=== PATIENT | female | born 1930 | race Caucasian/White ===

== ENCOUNTER 2016-08-16 13:39 | Observation (INO) | payer OTHER ==
[2016-08-16] VITALS (9 sets, daily range): BP systolic 164–186; BP diastolic 73–96; PULSE 65–102; RESP 16–20; TEMP 97.9–98; O2SAT 95–97
[~2016-08-16] VITALS: Ht 160 cm; Wt 82.3 kg
[~2016-08-16 13:39] MED LIST: ASPI1TAB69 PO; DILT-60 PO; LEVO50TA53 PO; LEXA10TA PO; LISI-519 PO; METH500T3 PO; PERC5TAB12 PO; PLAV75TA29 PO; PRAV20TA2 PO; ROPI.5 PO
--- NOTE | 2016-08-16 14:43 | PD ---
HPI Chief Complaint: Chest Pain Time Seen by Provider: 13:47 Travel History International Travel<30 days: No (3) Contact w/Intl Traveler<30days: No Traveled to known affect area: No History of Present Illness HPI Patient is a 86-year-old female who presents to emergency room with complaints of chest pain. Patient reports that she has been having intermittent chest pain feel a chest of the past 2 weeks. Patient reports that chest pain can occur any time. Reports that when she has the chest pain, it only last a few minutes at a time and is sharp and stabbing in nature. Reports that sometimes, "it hurts when i take a deep breath." Pt reports no trauma to chest. Reports no chest pain currently while in the ER [facility] Past Medical History Hx Anticoagulant Therapy: Yes (PLAVIX) Anemia: Yes Arthritis: Yes Blood Disorders: No Anxiety: No Depression: No Heart Rhythm Problems: No Cancer: Yes (LEFT BREAST) Cardiovascular Problems: Yes (VEIN STRIPPING OF LEGS - BILATERALLY) High Cholesterol: No Chemotherapy: No Chest Pain: No Congestive Heart Failure: No COPD: Yes (MILD) Cerebrovascular Accident: Yes (2013) Diabetes: No Diminished Hearing: No Endocrine: Yes Gastrointestinal Disorders: Yes GERD: Yes Genitourinary: No Hypertension: Yes Immune Disorder: No Implanted Vascular Access Dvce: Yes Musculoskeletal: Yes Neurologic: Yes (NEUROPATHY) Psychiatric: No Reproductive: Yes (ONE PRODUCED TWINS) Respiratory: Yes (PT STATES "MILD COPD") Radiation Therapy: Yes Shingles: Yes Thyroid Disease: Yes Tetanus Vaccination: > 5 Years Influenza Vaccination: Yes Menopausal: Yes : 6 Para: 5 Miscarriage: 2 Past Surgical History Abdominal Surgery: Yes (PARTIAL COLECTOMY) AICD: No Arteriovenous Shunt: No Body Medical Devices: METAL PLATES IN THE NECK PER PT AND DAUGHTER/ discectomy Cardiac Surgery: No Ear Surgery: No Endocrine Surgery: No Eye Surgery: Yes (CAITLIN. CATARACT EXTRACT) Genitourinary Surgery: No Gynecologic Surgery: No Insulin Pump: No Joint Replacement: No Mastectomy: Yes (LEFT) Neurologic Surgery: No Oral Surgery: Yes (TEETH EXTRACTION) Pacemaker: No Thoracic Surgery: No Tonsillectomy: Yes Other Surgery: Yes (LT MASTECTOMY WITH NODE REMOVAL 1985- RT LEG VEIN STRIPPING ) Social History Alcohol Use: Yes (rarely at mimi, wine coolers) Tobacco Use: No Substance Use: No Allergies-Medications (Allergen,Severity, Reaction): Coded Allergies: *MDRO Multi-Drug Resistant Organism (Verified Allergy, Unknown, 08/16/16) MRSA Reported Meds & Prescriptions Reported Meds & Active Scripts Active Reported Vitamin C (Ascorbic Acid) 500 Mg Tab 500 Mg PO DAILY Maxzide-25 (Triamterene-Hydrochlorothiazide) 37.5-25 Mg Tab 1 Tab PO DAILY Colace (Docusate Sodium) 100 Mg Cap 100 Mg PO BID Glucosamine Chondroitin & [phone] mg (Jnlmacvcwcn-Fjnsvvlcrad-Jf Cho) 1 Tab Tab 1 Tab PO DAILY Calcium 600+D (Calcium Carbonate-Vitamin D) 600-400 Mg-Unit Tab 1 Tab PO BID Magnesium Oxide 400 Mg Tab 400 Mg PO DAILY [place]-3 Fish Oil 1200 mg ([place]-3 Fatty Acids) 1 Cap Cap 1 Cap PO DAILY Escitalopram (Escitalopram Oxalate) 5 Mg Tab 5 Mg PO DAILY Ropinirole 0.25 Mg Tab 0.25 Mg PO HS Methocarbamol 500 Mg Tab 500 Mg PO HS Lisinopril 5 Mg Tab 5 Mg PO DAILY Levoxyl (Levothyroxine Sodium) 50 Mcg Tab 50 Mcg PO DAILY Diltiazem CD 24 HR 120 Mg Caper 120 Mg PO DAILY Plavix (Clopidogrel Bisulfate) 75 Mg Tab 75 Mg PO DAILY Aspirin 81 Mg Tabdr 81 Mg PO DAILY Review of Systems General / Constitutional: No: Fever Eyes: No: Visual changes HENT: No: Headaches Cardiovascular: Positive: Chest Pain or Discomfort, Palpitations, No: Irregular Rhythm Respiratory: Positive: Shortness of Breath Gastrointestinal: No: Abdominal Pain Genitourinary: No: Dysuria Musculoskeletal: No: Pain Skin: No Rash Neurologic: No: Weakness Psychiatric: No: Depression Endocrine: No: Polydipsia Hematologic/Lymphatic: No: Easy Bruising Physical Exam Narrative GENERAL: No acute distress, nontoxic SKIN: Warm and dry. HEAD: Atraumatic. Normocephalic. EYES: Pupils equal and round. No scleral icterus. No injection or drainage. ENT: No nasal bleeding or discharge. Mucous membranes pink and moist. NECK: Trachea midline. No JVD. CARDIOVASCULAR: Regular rate and rhythm. No murmur appreciated. RESPIRATORY: No accessory muscle use. Clear to auscultation. Breath sounds equal bilaterally. GASTROINTESTINAL: Abdomen soft, non-tender, nondistended. Hepatic and splenic margins not palpable. MUSCULOSKELETAL: No obvious deformities. No clubbing. No cyanosis. No edema. NEUROLOGICAL: Awake and alert. No obvious cranial nerve deficits. Motor grossly within normal limits. Normal speech. PSYCHIATRIC: Appropriate mood and affect; insight and judgment normal. Data Data Last Documented VS Vital Signs Date Time Temp Pulse Resp B/P Pulse Ox O2 Delivery O2 Flow Rate FiO2 08/16/16 15:40 80 16 177/95 96 Room Air 08/16/16 13:39 97.9 Orders Electrocardiogram (08/16/16 ) Hydralazine Inj (Apresoline Inj) (08/16/16 14:45) Complete Blood Count With Diff (08/16/16 14:36) Basic Metabolic Panel (Bmp) (08/16/16 14:36) Ckmb (Isoenzyme) Profile (08/16/16 14:36) Troponin I (08/16/16 14:36) Chest, Single Ap (08/16/16 14:36) Iv Access Insert/Monitor (08/16/16 14:36) Ecg Monitoring (08/16/16 14:36) Ct Pulmonary Angiogram (08/16/16 14:46) Iohexol 350 Inj (Omnipaque 350 Inj) (08/16/16 16:27) Admit Order (Ed Use Only) (08/16/16 16:37) Labs Laboratory Tests Test 08/16/16 14:20 White Blood Count 9.5 TH/MM3 Red Blood Count 4.26 MIL/MM3 Hemoglobin 13.6 GM/DL Hematocrit 40.5 % Mean Corpuscular Volume 95.0 FL Mean Corpuscular Hemoglobin 32.0 PG Mean Corpuscular Hemoglobin 33.6 % Concent Red Cell Distribution Width 14.4 % Platelet Count 345 TH/MM3 Mean Platelet Volume 8.5 FL Neutrophils (%) (Auto) 61.0 % Lymphocytes (%) (Auto) 22.7 % Monocytes (%) (Auto) 12.2 % Eosinophils (%) (Auto) 3.5 % Basophils (%) (Auto) 0.6 % Neutrophils # (Auto) 5.8 TH/MM3 Lymphocytes # (Auto) 2.2 TH/MM3 Monocytes # (Auto) 1.2 TH/MM3 Eosinophils # (Auto) 0.3 TH/MM3 Basophils # (Auto) 0.1 TH/MM3 CBC Comment DIFF FINAL Differential Comment Sodium Level 140 MEQ/L Potassium Level 4.2 MEQ/L Chloride Level 106 MEQ/L Carbon Dioxide Level 25.8 MEQ/L Anion Gap 8 MEQ/L Blood Urea Nitrogen 18 MG/DL Creatinine 0.67 MG/DL Estimat Glomerular Filtration 83 ML/MIN Rate Random Glucose 79 MG/DL Calcium Level 9.2 MG/DL Total Creatine Kinase 42 U/L Troponin I LESS THAN 0.02 NG/ML MDM Medical Decision Making Medical Screen Exam Complete: Yes Emergency Medical Condition: Yes Interpretation(s) EKG at 1409: Normal sinus rhythm at 63 beats minute, QT/QTc 425/432, no acute st or t wave changes Vital Signs Date Time Temp Pulse Resp B/P Pulse Ox O2 Delivery O2 Flow Rate FiO2 08/16/16 13:40 70 16 96 Room Air 08/16/16 13:40 65 16 186/79 96 Room Air 08/16/16 13:39 97.9 68 16 186/79 96 Differential Diagnosis ACS, PE, DVT, electrolyte abnormality, arrhythmia Narrative Course 86-year-old female with history of atrial fibrillation and hypertension, presents to emergency room with complaints of chest pain. Patient has been having intermittent chest pain for the past 2 weeks, reports his symptoms are sharp stabbing nature and lasts only a few minutes at a time. Patient currently with no chest pain at this time. EKG reviewed, patient placed on threat monitoring analyst as well continuous pulse oximeter CBC, BMP and Cardiac enzymes as well as x-ray chest ordered for evaluation symptoms. We'll monitor patient symptomatically Patient with elevated blood pressure, she has not taken her blood pressure medications yet, patient thinks that she does take diltiazem daily - call made to assisted living for full medication list Reviewed CT report with patient, a copy of patient's CT report was given to her as she will need to follow-up with her primary care doctor as outpatient for possible metastatic disease. Diagnosis Primary Impression: Chest pain Additional Impression: Lung mass Kimberly Hanson DO Aug 16, 2016 14:43
[2016-08-16] MEDS ORDERED: hydrALAZINE HCL 20 MG/ML VIAL IV PUSH ONE (14:45)
[2016-08-16] MEDS ORDERED: VITA500T PO (14:53)
[2016-08-16] MEDS ORDERED: CALCTAB38 PO (14:53)
[2016-08-16] MEDS ORDERED: ESCI5TAB PO (14:53)
[2016-08-16] MEDS ORDERED: ROPI0.25 PO (14:53)
[2016-08-16] MEDS ORDERED: MAGN400T2 PO (14:53)
[2016-08-16] MEDS ORDERED: [UNRECOGNIZED DRUG - CODE] PO (14:53)
[2016-08-16] MEDS ORDERED: GLUCTAB32 PO (14:53)
[2016-08-16] MEDS ORDERED: COLA100C3 PO (14:53)
[2016-08-16] MEDS ORDERED: MAXZTAB PO (14:53)
--- NOTE | 2016-08-16 15:02 | RADRPT ---
EXAM DATE/TIME: 08/16/2016 14:43 [facility] COMPARISON: No previous studies available for comparison. INDICATIONS : Chest pain. MEDICAL HISTORY : None. SURGICAL HISTORY : Mastectomy, left. ENCOUNTER: Initial ACUITY: 2 weeks PAIN SCORE: 8/10 LOCATION: Left chest FINDINGS: Aortic calcification and cardiomegaly. High riding humeral head on the right. Clear lungs. CONCLUSION: No acute disease. Chris Weinberg MD on August 16, 2016 at 15:00 Board Certified Radiologist. This report was verified electronically.
[2016-08-16 15:31] LABS: AUTOMATED NEUTROPHIL # 5.8 TH/MM3 (1.8-7.7); BASOPHIL # 0.1 TH/MM3 (0-0.2); BASOPHIL % 0.6 % (0.0-2.0); EOSINOPHIL # 0.3 TH/MM3 (0-0.4); EOSINOPHIL % 3.5 % (0.0-4.0); HEMATOCRIT 40.5 % (35.0-46.0); HEMO FLAGS DIFF FINAL; LYMPH % 22.7 % (9.0-44.0); LYMPHOCYTE # 2.2 TH/MM3 (1.0-4.8); MEAN CORPUSCULAR HGB CONC 33.6 % (32.0-36.0); MONO % 12.2 % (0.0-8.0); PLATELET COUNT 345 TH/MM3 (150-450); RED BLOOD COUNT 4.26 MIL/MM3 (4.00-5.30); RED CELL DISTRIBUTION WIDTH 14.4 % (11.6-17.2); WHITE BLOOD COUNT 9.5 TH/MM3 (4.0-11.0)
[2016-08-16 15:47] LABS: ANION GAP 8 MEQ/L (5-15); BICARBONATE 25.8 MEQ/L (21.0-32.0); BLOOD UREA NITROGEN 18 MG/DL (7-18); CHLORIDE 106 MEQ/L (98-107); GLOMERULAR FILTRATION RATE 83 ML/MIN (>89); POTASSIUM 4.2 MEQ/L (3.5-5.1); SODIUM (NA) 140 MEQ/L (136-145)
[2016-08-16 15:56] LABS: CREATINE KINASE 42 U/L (26-192)
[2016-08-16] MEDS ORDERED: IOHEXOL 350 MG/ML 50 ML BTL (for RAD DIAG) IV ONE (16:27)
[2016-08-16] MEDS: NITROGLYCERIN 0.4 MG SL 25 TABS/BTL SL SCH ×3 (16:46→16:55)
--- NOTE | 2016-08-16 16:53 | RADRPT ---
EXAM DATE/TIME: 08/16/2016 16:20 [facility] COMPARISON: MRI BRAIN W/O CONTRAST, July 14, 2013, 12:35. INDICATIONS : Left sided chest pain for two weeks. IV CONTRAST: 75 cc Omnipaque 350 (iohexol) IV RADIATION DOSE: 21.02 CTDIvol (mGy) MEDICAL HISTORY : Carcinoma, breast. Stroke SURGICAL HISTORY : Mastectomy, left. ENCOUNTER: Initial ACUITY: 1 day PAIN SCALE: 0/10 LOCATION: Left chest TECHNIQUE: Volumetric scanning of the chest was performed using a pulmonary embolism protocol MIP images were re constructed. Using automated exposure control and adjustment of the mA and/or kV according to patien t size, radiation dose was kept as low as reasonably achievable to obtain optimal diagnostic quality images. FINDINGS: There is no pulmonary embolus. Trace atelectasis of both lung bases. Posteriorly in the right lower lobe is a 17 mm cavity with 1-2 mm, slightly irregular wall. No fluid levels are demonstrated. There is an 8 x 10 mm nodule with angu lar margins of the right upper lobe. No pleural effusion. No pneumothorax. Right and left-sided coronary artery calcification noted. No lymphadenopathy. Small hiatal hernia not ed. Scoliosis and degenerative changes are seen of the spine. CONCLUSION: 1. No pulmonary embolus. 2. 17 mm age and etiology indeterminate cavity posteriorly of the right lower lobe. The wall is relat ively thin and malignancy is doubted but not excludable. Comparison to any prior chest CTs would be h elpful. If there are no prior CTs of the chest, non-emergent outpatient PET CT suggested. There is an 8 x 10 mm indeterminate but most likely benign right upper lobe nodule seen as well. 3. Coronary artery calcification. 4. Small hiatal hernia. Manuel De León MD on August 16, 2016 at 16:45 Board Certified Radiologist. This report was verified electronically.
[2016-08-16] MEDS ORDERED: RESP: ALBUTEROL 2.5 MG/IPRATROPIUM 0.5 MG NEB (PRN) INH (17:30)
[2016-08-16] MEDS ORDERED: ACETAMINOPHEN/HYDROcodone 325 MG/5 MG TAB PO PRN (17:30)
[2016-08-16] MEDS ORDERED: ONDANSETRON HCL 4 MG/2 ML VIAL IV PRN (17:30)
[2016-08-16] MEDS ORDERED: KETOROLAC TROMETHAMINE 30 MG/ML (IVP) VIAL IVP ONE (17:30)
[2016-08-16] MEDS ORDERED: SODIUM CHLORIDE 0.9% FLUSH 5 ML FLUSH IVF PRN (17:30)
[2016-08-16] MEDS ORDERED: PILL SPLITTER OTHER PRN (17:30)
[2016-08-16] MEDS ORDERED: ACETAMINOPHEN 500 MG CPLT PO PRN (17:30)
[2016-08-16] MEDS ORDERED: cloNIDine HCL 0.1 MG TAB PO PRN (17:30)
[2016-08-16] MEDS: DILTIAZEM-CD 120 MG CAP ER PO SCH (18:26)
[2016-08-16] MEDS: LISINOPRIL 5 MG TAB PO SCH (18:26)
[2016-08-16] MEDS: PANTOPRAZOLE SOD 40 MG DELAYED RELEASE TAB PO SCH (18:26)
[2016-08-16] MEDS: TRIAMTERENE/HCTZ 37.5 MG/25 MG TAB PO SCH (18:27)
[2016-08-16 18:50] LABS: CREATINE KINASE 28 U/L (26-192)
[2016-08-16] MEDS: DOCUSATE SODIUM 100 MG CAP PO SCH (19:52)
[2016-08-16] MEDS: SODIUM CHLORIDE 0.9% FLUSH 5 ML FLUSH IVF SCH (21:00)
[2016-08-16] MEDS ORDERED: METHOCARBAMOL 500 MG TAB PO SCH (21:00)
[2016-08-17 00:11] VITALS: BP 148/70; PULSE 63; RESP 20; TEMP 97.6; O2SAT 96
[2016-08-17 03:53] VITALS: BP 184/89; PULSE 64; RESP 20; TEMP 97.6; O2SAT 95
[2016-08-17] MEDS ORDERED: LEVOTHYROXINE SODIUM 50 MCG TAB PO SCH (06:00)
[2016-08-17 07:59] VITALS: BP 147/79; PULSE 64; RESP 18; TEMP 96.1; O2SAT 97
[2016-08-17] MEDS: TRIAMTERENE/HCTZ 37.5 MG/25 MG TAB PO SCH (08:19)
[2016-08-17] MEDS: DILTIAZEM-CD 120 MG CAP ER PO SCH (08:19)
[2016-08-17] MEDS: PANTOPRAZOLE SOD 40 MG DELAYED RELEASE TAB PO SCH (08:19)
[2016-08-17] MEDS: LISINOPRIL 5 MG TAB PO SCH (08:19)
[2016-08-17] MEDS: DOCUSATE SODIUM 100 MG CAP PO SCH (08:19)
[2016-08-17] MEDS: SODIUM CHLORIDE 0.9% FLUSH 5 ML FLUSH IVF SCH (08:29)
--- NOTE | 2016-08-17 08:36 | MH ---
cc: BRYAN WATERS MD DATE OF ADMISSION 08/16/2016 DATE OF 1930 CHIEF COMPLAINT Chest pain and hypertension. HISTORY OF PRESENT ILLNESS This is an 86-year-old female who presents to the ED via [facility] for her primary complaint of hypertension. The patient states that she was not feeling right this morning. She lives at an assisted living facility and had a nurse check her blood pressure and it was elevated. Her nurse was concerned and called [facility]. She really was not thinking about chest pain but she states she was having chest pain intermittently for the last two weeks. She states it is left-sided discomfort and describes it as possibly a pressure. When it occurs it usually lasts less than minute. She at times gets short of breath with it but also states she has COPD. There has been no associated nausea, diaphoresis. When she takes in a deep breath it can bring the discomfort on as well. She did not take her blood pressure medications this morning. She just came directly to the ED. Denies history of CAD. She states that she had a cardiac workup many years ago and that it was okay. Denies recent travel. Denies any calf pain or swelling. PAST MEDICAL HISTORY 1. Hypertension. 2. COPD. 3. Restless leg syndrome. 4. Hypothyroidism. 5. Cerebrovascular accident 3 years ago affecting her left side. She still needs a walker to ambulate. 6. Left breast cancer with mastectomy 1985. Denies hyperlipidemia, diabetes and known CAD. FAMILY HISTORY Her father had an MA in his 70s. SOCIAL HISTORY The patient quit smoking cigarettes 35 years ago but the patient states that she smoked about a pack of cigarettes a day for 14 years. She rarely has alcohol. Denies illicit drugs. PAST SURGICAL HISTORY 1. Left mastectomy. 2. Partial colectomy. 3. Neck surgery. 4. Bilateral cataracts. ALLERGIES NO KNOWN DRUG ALLERGIES. CURRENT MEDICATIONS A list was provided by the assisted living facility as confirmed by the pharmacy intake coordinator in the ER and include: 1. Lisinopril 5 mg daily. 2. Magnesium oxide 400 mg daily. 3. Lexapro 5 mg daily. 4. Diltiazem CD 120 milligrams daily. 5. Colace 100 mg twice daily. 6. Methocarbamol 500 mg at night. 7. Ropinirole 0.25 mg at night. 8. 81 mf of aspirin. 9. Plavix 75 mg. 10. Maxzide daily. 11. Levothyroxine 50 mcg daily. 12. Supplements. 13. Multivitamin. REVIEW OF SYSTEMS GENERAL: Denies fever or chills. Denies recent illnesses. HEENT: Denies headache, earache, sore throat, difficulty swallowing. CARDIOVASCULAR: Describes the discomfort as mentioned above. Denies diaphoresis. Denies sensation of heart beating rapidly or irregularly. No syncope. RESPIRATORY: She at times has been short of breath, really cannot say if it was with or without her chest discomfort. Denies coughing, wheezing or hemoptysis. She has pain at times when she takes in a deep breath. GASTROINTESTINAL: Denies nausea, vomiting, diarrhea, abdominal pain or blood in the stool. MUSCULOSKELETAL: She has chronic bilateral shoulder pain. 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 She also has chronic knee pains. Denies calf pain or swelling. NEUROVASCULAR: Denies headache or dizziness. Her left side is a little bit weaker than the right which has been that way for a few years and she uses a walker to ambulate. ENDOCRINE: Denies polyuria, polydipsia. HEMATOLOGIC: Denies bruising. SKIN: Denies rash or itching. PHYSICAL EXAMINATION VITAL SIGNS: In the emergency department initially included a blood pressure of 186/79, heart rate 68, respiratory rate 16, pulse oximetry 96% on room air. Most recent vital signs include a blood pressure of 182/91, heart rate 79, respiratory rate 16, pulse oximetry 96% on room air. GENERAL: The patient is seen in the examination room in no apparent distress. She is pleasant. She speaks in clear and complete sentences. Her daughters are also at the bedside. HEENT: Head is atraumatic, normocephalic. NECK: Supple without lymphadenopathy. Trachea is midline. No JVD or carotid bruits. CARDIOVASCULAR: Regular rate and rhythm without rubs or gallops. There is a grade 2 systolic murmur at the left sternal border as well as right sternal border but does not radiate in to the neck. ABDOMEN: Nontender. Nondistended. Bowel sounds are normal. No rebound or guarding. No obvious pulsatile mass or bruit. No CVA tenderness. Strong femoral pulses bilaterally. MUSCULOSKELETAL: The patient moving upper and lower extremities, however, she has limited range of motion in her shoulders which is chronic. No calf tenderness or edema. No Vandana sign. Strong pulses in the upper and lower extremities. NEUROVASCULAR: The patient is alert and oriented. Cranial nerves II through XII are grossly intact. No focal deficits. Speech is clear. SKIN: No rashes. Turgor is normal. LABORATORY DATA CBC is essentially unremarkable. Basic metabolic panel essentially unremarkable. First set of cardiac enzymes normal. IMAGING Single view chest x-ray read by radiologist as no acute disease. A CTA pulmonary angiogram obtained through the ER and read by the radiologist as: 1. No pulmonary embolus. 2. A 17 mm age and etiology indeterminate cavity posteriorly of the right lower lobe. The wall is relatively thin and malignancy is doubted but not excluded. Comparison to any prior CT scan would be helpful. If there are no prior CT scan of the chest, a non emergent outpatient CT suggested. There is an 8 x 10 mm indeterminate but most likely benign right upper lobe nodule seen as well. 3. Coronary artery calcification. 4. Small hiatal hernia. ELECTROCARDIOGRAM EKGs, EKG number one has sinus rhythm with lateral ST-T changes, nonspecific. ASSESSMENT AND PLAN 1. Chest pain: The patient will continue to have cardiac enzymes and EKGs for ruling out purposes. She will be seen by Dr. Waters of cardiology in the chest pain center. Her discomfort at this time is reproducible palpating on the chest wall, as well as taking in a deep breath. We will try some Toradol and see if that can help her with the discomfort. Further plan in the morning will be determined after Dr. Waters evaluates this patient. 2. Hypertension: We will give the patient her blood pressure medicines that she should be taking but has not taken yet this morning. And add Catapres p.r.n. we will continue to monitor. 3. Hypothyroidism: We will continue her medication. 4. COPD: We will add DuoNeb as needed but she should resume her medications at discharge. 5. Restless leg syndrome: Continue current medication. 6. History of cerebrovascular accident: The patient continue Plavix. 7. Abnormal CT of the chest: The patient had a cavity on the right lower lobe and radiology recommends outpatient CT followup. This has been discussed with the patient and we will continue to monitor the patient in the morning. She will need to have this followed up with her primary care physician. The patient is stable at this time, she is agreeable to this plan. DICTATED BY: CAROL Smith Bryan Waters M.D. BAB/KK /5:30 PM /8:33 AM
[2016-08-17] MEDS ORDERED: CLOPIDOGREL 75 MG TAB PO SCH (09:00)
[2016-08-17] MEDS ORDERED: ESCITALOPRAM OXALATE 10 MG TAB PO SCH (09:00)
[2016-08-17] MEDS ORDERED: MAGNESIUM OXIDE 400 MG TAB PO SCH (09:00)
[2016-08-17] MEDS ORDERED: ASPIRIN 325 MG TAB PO SCH (09:00)
--- NOTE | 2016-08-17 09:07 | EKG ---
Date Performed: 08/16/2016 Time Performed: 20:32:50 PTAGE: 86 years EKG: Sinus rhythm WITH OCCASIONAL SUPRAVENTRICULAR PREMATURE COMPLEXES LEFT VENTRICULAR HYPERTROPHY AND ST-T CHANGE AB NORMAL ECG Since PREVIOUS TRACING , no significant change noted PREVIOUS TRACIN08/16/2016 17.42 DOCTOR: Ame Tyler Interpretating Date/Time 08/17/2016 09:06:30
--- NOTE | 2016-08-17 09:08 | EKG ---
Date Performed: 08/16/2016 Time Performed: 17:42:39 PTAGE: 86 years EKG: Sinus rhythm WITH OCCASIONAL SUPRAVENTRICULAR PREMATURE COMPLEXES LEFT VENTRICULAR HYPERTROPHY AND ST-T CHANGE AB NORMAL ECG PREVIOUS TRACING : 08/16/2016 14.09 Since previous tracing, no significant change noted DOCTOR: Ame Tyler Interpretating Date/Time 08/17/2016 09:07:17
--- NOTE | 2016-08-17 09:09 | EKG ---
Date Performed: 08/16/2016 Time Performed: 14:09:27 PTAGE: 86 years EKG: Sinus rhythm LEFT VENTRICULAR HYPERTROPHY AND ST-T CHANGE ABNORMAL ECG Since PREVIOUS TRACING , no significant change noted PREVIOUS TRACIN07/13/2013 19.18 DOCTOR: Ame Tyler Interpretating Date/Time 08/17/2016 09:08:03
--- NOTE | 2016-08-17 09:19 | HHI.DCPOC ---
Discharge Care Plan Diagnosis: (1) Chest pain (2) Lung mass (3) Hypertension Additional Problems WILL NEED TO HAVE A PET CT SCAN WITH YOUR PRIMARY CARE DOCTOR WITHIN THE NEXT 2 WEEKS TO EVALUATE LUNG MASS. Goals to Promote Your Health * To prevent worsening of your condition and complications * To maintain your health at the optimal level Directions to Meet Your Goals Take your medications as prescribed Follow your dietary instruction Follow activity as directed Keep your appointments as scheduled Take your immunizations and boosters as scheduled If your symptoms worsen call your PCP, if no PCP go to Urgent Care Center or Emergency Room Smoking is Dangerous to Your Health. Avoid second hand smoke Call the 24-hour hour crisis hotline for domestic abuse at Khoi Tyson Aug 17, 2016 09:19
[2016-08-17 11:35] VITALS: O2SAT 95
== END 2016-08-17 11:58 | disposition home or self-care (01) ==
LOC: NEPA 13:39 → NEDA 16:38 → NEPHCDU 18:24
PROVIDERS: ADMIT Internal Medicine Cardiovascular Disease; ATTEND Internal Medicine Cardiovascular Disease
DX: R07.9 Chest pain, unspecified (principal); I10 Essential (primary) hypertension; E03.9 Hypothyroidism, unspecified; J44.9 Chronic obstructive pulmonary disease, unspecified; G25.81 Restless legs syndrome; Z86.73 Personal history of transient ischemic attack (TIA), and cerebral infarction without residual deficits; R94.31 Abnormal electrocardiogram [ECG] [EKG]; Z79.01 Long term (current) use of anticoagulants; D64.9 Anemia, unspecified; Z85.3 Personal history of malignant neoplasm of breast; K21.9 Gastro-esophageal reflux disease without esophagitis; G62.9 Polyneuropathy, unspecified; Z79.899 Other long term (current) drug therapy; R91.8 Other nonspecific abnormal finding of lung field
CPT/HCPCS: 71010; 71275; 80048; 82550; 84484; 85025; 93005; 96374; 99285; G0378; J0360; J1885; Q9967

== ENCOUNTER → 2016-09-10 | Day surgery (SDC) | payer OTHER ==
[~2016-09-10] MED LIST changes: +ASPI81CH5 CHEW; +BUPIVACAINE/EPINEPHRINE 0.5% PF 10 ML VIAL ONE; +CALCTAB19 PO; +CALCTAB38 PO; +CLOTCRE TOPICAL; +COLA100C3 PO; +DILT120T PO; +ESCI20TA PO; +ESCI5TAB PO; +GLUCTAB32 PO; +LACTATED RINGER'S 1000 ML INJ 1,000 ML ONE; -LEXA10TA PO; +LOPE2CAP PO; +MAGN400T2 PO; +MAXZTAB PO; +NORC5TAB PO; +ONDANSETRON HCL 4 MG/2 ML VIAL IV PUSH ONE; -PERC5TAB12 PO; +PROB1CAP PO; +PROPOFOL 200 MG/20 ML AMP IV ONE; -ROPI.5 PO; +ROPI0.25 PO; +SPIRCAP INH; +VENTAER INH; +VITA500T PO; +[UNRECOGNIZED DRUG - CODE] PO; +ceFAZolin INJ 1,000 MG VIAL ONE
--- NOTE | 2016-09-10 22:16 | TN ---
cc: JAMEL NEGRO DATE OF SURGERY 09/10/16 PREOPERATIVE DIAGNOSIS 1. Internal derangement of the right knee. 2. Probable medial and lateral meniscus tear, right knee. POSTOPERATIVE DIAGNOSIS 1. Degenerative posterior medial meniscus tear. 2. Complex anterolateral and body of lateral meniscus tear. 3. Chondrocalcinosis 4. Osteoarthritis of the right knee PROCEDURE 1. Arthroscopy right knee. 2. Arthroscopic partial medial meniscectomy. 3. Arthroscopic subtotal lateral meniscectomy. 4. Arthroscopic debridement of medial and lateral compartment. SURGEON Marisel Negro MD ANESTHESIA General. ESTIMATED BLOOD LOSS Minimal. INDICATION This is an 86 year old female with catching, locking and severe pain almost limiting her for ambulation. Both knees showed mild to moderate arthritis. She has an MRI scan showing evidence of what appears to be a degenerative medial meniscus tear and a displaced lateral meniscus tear. She presents for surgical treatment. PROCEDURE IN DETAIL The patient was brought to the operating room, anesthetized in the supine position. The right leg was scrubbed with alcohol followed by Hibiclens followed by Chloraprep and draped sterilely. Antibiotics were given within a 1 hour time window and a time-out was done. Inflow was established anterior and laterally. The suprapatellar pouch was inspected. There was grade II changes in the retropatellar region with no loose bodies. The medial and lateral gutters were free of loose bodies. The medial compartment showed a loose piece of articular cartilage. There was evidence of a posterior medial meniscus tear which was a horizontal split tear and a small radial tear posteriorly near the attachment. The ACL looked normal. The lateral compartment showed a very torn and macerated anterolateral meniscus which had acute appearances. It extending around to the bottom of the meniscus at the 9 o'clock position. There was calcification of the meniscus consistent with chondrocalcinosis. Separate spinal needle was used along the medial joint line followed by a separate incision. Straight and angled punches were used to take the meniscus back to a stable rim starting from the 3 o'clock position in the posterior horn. This was trimmed also all the way around to the 4:30 position at the edge which appeared degenerative and was tearing. We went to the lateral compartment into the subtotal meniscectomy anteriorly that extended almost around to the popliteal hiatus. The posterior corner looked fine and was only mildly debrided. Had abrasion chondroplasty performed involving most of the distal femur medially and laterally. All fragments were suctioned free from the joint. The wound was irrigated copiously. The portals were closed with Steri-Strips and Benzoin and after using local anesthesia, the patient was awakened and taken to recovery in satisfactory condition. MD CUONG Beckwith/ /4:45 PM /10:01 PM
== END | disposition home or self-care (01) ==
LOC: ESDC 14:54
PROVIDERS: ATTEND Orthopaedic Surgery Orthopaedic Surgery of the Spine
DX: S83.241A Other tear of medial meniscus, current injury, right knee, initial encounter (principal); S83.271A Complex tear of lateral meniscus, current injury, right knee, initial encounter; M17.11 Unilateral primary osteoarthritis, right knee
CPT/HCPCS: 01400; 29880; J0690; J2405; J3010; J7120

== ENCOUNTER 2016-10-17 17:49 | Emergency (ER) | payer OTHER ==
[~2016-10-17] VITALS: Ht 160 cm; Wt 82.0 kg
[~2016-10-17 17:49] MED LIST changes: -ASPI81CH5 CHEW; -BUPIVACAINE/EPINEPHRINE 0.5% PF 10 ML VIAL ONE; -CALCTAB19 PO; -CLOTCRE TOPICAL; -DILT120T PO; -ESCI20TA PO; -LACTATED RINGER'S 1000 ML INJ 1,000 ML ONE; -LOPE2CAP PO; -NORC5TAB PO; -ONDANSETRON HCL 4 MG/2 ML VIAL IV PUSH ONE; -PRAV20TA2 PO; -PROB1CAP PO; -PROPOFOL 200 MG/20 ML AMP IV ONE; -SPIRCAP INH; -VENTAER INH; -ceFAZolin INJ 1,000 MG VIAL ONE
[2016-10-17 17:55] VITALS: BP 200/84; PULSE 61; RESP 16; TEMP 98.9; O2SAT 97
--- NOTE | 2016-10-17 18:08 | PD ---
HPI Chief Complaint: fall Time Seen by Provider: 17:54 Travel History International Travel<30 days: No Contact w/Intl Traveler<30days: No Traveled to known affect area: No History of Present Illness HPI This 86-year-old female is brought for evaluation after a fall. She says she left leg gave out on her and she fell backwards. She did not lose consciousness she hit her head and she also had both of her elbows. She is having some pain in her head. She takes aspirin and Plavix is not sure why she takes the Plavix there is indication that she's had a stroke which has affected her left side. She has lymphedema of the left arm secondary to mastectomy. PFSH Past Medical History Hx Anticoagulant Therapy: Yes (PLAVIX) Anemia: Yes Arthritis: Yes Blood Disorders: No Anxiety: No Depression: No Heart Rhythm Problems: No Cancer: Yes (LEFT BREAST) Cardiovascular Problems: Yes (VEIN STRIPPING OF LEGS - BILATERALLY) High Cholesterol: No Chemotherapy: No Chest Pain: No Congestive Heart Failure: No COPD: Yes (MILD) Cerebrovascular Accident: Yes (2013) Diabetes: No Diminished Hearing: No Endocrine: Yes Gastrointestinal Disorders: Yes GERD: Yes Genitourinary: No Hypertension: Yes Immune Disorder: No Implanted Vascular Access Dvce: Yes Musculoskeletal: Yes Neurologic: Yes (NEUROPATHY) Psychiatric: No Reproductive: Yes (ONE PRODUCED TWINS) Respiratory: Yes (PT STATES "MILD COPD") Radiation Therapy: Yes Shingles: Yes Thyroid Disease: Yes Menopausal: Yes : 6 Para: 5 Miscarriage: 2 Past Surgical History Abdominal Surgery: Yes (PARTIAL COLECTOMY) AICD: No Arteriovenous Shunt: No Body Medical Devices: METAL PLATES IN THE NECK PER PT AND DAUGHTER/ discectomy Cardiac Surgery: No Ear Surgery: No Endocrine Surgery: No Eye Surgery: Yes (CAITLIN. CATARACT EXTRACT) Genitourinary Surgery: No Gynecologic Surgery: No Insulin Pump: No Joint Replacement: No Mastectomy: Yes (LEFT) Neurologic Surgery: No Oral Surgery: Yes (TEETH EXTRACTION) Pacemaker: No Thoracic Surgery: No Tonsillectomy: Yes Other Surgery: Yes (LT MASTECTOMY WITH NODE REMOVAL 1986- RT LEG VEIN STRIPPING ) Social History Alcohol Use: Yes (rarely at mimi, wine coolers) Tobacco Use: No Substance Use: No Allergies-Medications (Allergen,Severity, Reaction): Coded Allergies: *MDRO Multi-Drug Resistant Organism (Verified Allergy, Unknown, 10/17/16) MRSA Reported Meds & Prescriptions Reported Meds & Active Scripts Active Reported Vitamin C (Ascorbic Acid) 500 Mg Tab 500 Mg PO DAILY Maxzide-25 (Triamterene-Hydrochlorothiazide) 37.5-25 Mg Tab 1 Tab PO DAILY Colace (Docusate Sodium) 100 Mg Cap 100 Mg PO BID Glucosamine Chondroitin & [phone] mg (Zdgihqoalcp-Swhcubbzpbd-[place]) 1 Tab Tab 1 Tab PO DAILY Calcium 600+D (Calcium Carbonate-Vitamin D) 600-400 Mg-Unit Tab 1 Tab PO BID Magnesium Oxide 400 Mg Tab 400 Mg PO DAILY [place]-3 Fish Oil 1200 mg ([place]-3 Fatty Acids) 1 Cap Cap 1 Cap PO DAILY Escitalopram (Escitalopram Oxalate) 5 Mg Tab 5 Mg PO DAILY Ropinirole 0.25 Mg Tab 0.25 Mg PO HS Methocarbamol 500 Mg Tab 500 Mg PO HS Lisinopril 5 Mg Tab 5 Mg PO DAILY Levoxyl (Levothyroxine Sodium) 50 Mcg Tab 50 Mcg PO DAILY Diltiazem CD 24 HR 120 Mg Caper 120 Mg PO DAILY Plavix (Clopidogrel Bisulfate) 75 Mg Tab 75 Mg PO DAILY Aspirin 81 Mg Tabdr 81 Mg PO DAILY Review of Systems General / Constitutional: No: Fever, Chills Eyes: No: Diploplia HENT: Positive: Headaches, No: Vertigo Cardiovascular: No: Chest Pain or Discomfort, Palpitations Respiratory: No: Shortness of Breath, Wheezing Gastrointestinal: No: Nausea, Vomiting Genitourinary: No: Urgency, Frequency Musculoskeletal: No: Myalgias, Arthralgias Skin: No Rash, No Itching Neurologic: No: Weakness, Syncope Endocrine: No: Heat Intolerance Physical Exam Narrative GENERAL: Well-developed female SKIN: Warm and dry. HEAD: . Normocephalic. There is some tenderness in the occipital area. There is no midline tenderness of the neck EYES: Pupils equal and round. No scleral icterus. No injection or drainage. ENT: No nasal bleeding or discharge. Mucous membranes pink and moist. NECK: Trachea midline. No JVD. CARDIOVASCULAR: Regular rate and rhythm. No murmur appreciated. RESPIRATORY: No accessory muscle use. Clear to auscultation. Breath sounds equal bilaterally. GASTROINTESTINAL: Abdomen soft, non-tender, nondistended. Hepatic and splenic margins not palpable. MUSCULOSKELETAL: No obvious deformities. No clubbing. No cyanosis. There is lymphedema of the left arm. There is a well defined swollen tender area on the right olecranon bursa. There is full range of motion of the right elbow NEUROLOGICAL: Awake and alert. No obvious cranial nerve deficits. Motor grossly within normal limits. Normal speech. PSYCHIATRIC: Appropriate mood and affect; insight and judgment normal. Data Data Last Documented VS Vital Signs Date Time Temp Pulse Resp B/P Pulse Ox O2 Delivery O2 Flow Rate FiO2 10/17/16 18:04 16 10/17/16 17:55 98.9 61 200/[address] Brain W/O Iv Contrast(Rout) (10/17/16 17:54) MDM Medical Decision Making Medical Screen Exam Complete: Yes Emergency Medical Condition: Yes Medical Record Reviewed: Yes Differential Diagnosis Differential includes contusion, skull fracture, subdural Narrative Course CT scan was obtained and is negative for fracture or hemorrhage. Diagnosis Primary Impression: Contusion of head Qualified Code: S00.83XA - Contusion of other part of head, initial encounter Additional Impression: traumatic olecranon bursitis Additional Instructions: Apply ice to right elbow as needed, return if increasing headache, confusion, unsteady gait Disposition: 01 DISCHARGE HOME Condition: Stable Yan Allen MD Oct 17, 2016 18:07
--- NOTE | 2016-10-17 19:01 | RADHPO ---
EXAM DATE/TIME: 10/17/2016 18:38 [facility] COMPARISON: CT BRAIN W/O CONTRAST, July 13, 2013, 20:36. INDICATIONS : Fall, cephalgia. RADIATION DOSE: 58.26 CTDIvol (mGy) MEDICAL HISTORY : Cardiovascular disease. Cerebrovascular disease. Chronic obstructive pulmonary disease. SURGICAL HISTORY : None. ENCOUNTER: Initial ACUITY: 1 day PAIN SCALE: 4/10 LOCATION: cranial TECHNIQUE: Multiple contiguous axial images were obtained of the head. Using automated exposure control and adj ustment of the mA and/or kV according to patient size, radiation dose was kept as low as reasonably a chievable to obtain optimal diagnostic quality images. FINDINGS: There is stable mild line loss and patchy and confluent decreased attenuation of the bilateral centru m semiovale and periventricular white matter most characteristic of chronic microvascular ischemic di sease. No fractures. CONCLUSION: No significant change has occurred. Chris Weinberg MD on October 17, 2016 at 18:59 Board Certified Radiologist. This report was verified electronically.
[2016-10-17 19:14] VITALS: BP 200/93
[2016-10-17] MEDS ORDERED: LISINOPRIL 5 MG TAB PO ONE (19:30)
[2016-10-17 19:55] VITALS: BP 195/91; PULSE 87; RESP 18; O2SAT 98
[2016-10-17 20:59] VITALS: BP 191/96
== END 2016-10-17 21:18 | disposition home or self-care (01) ==
LOC: PHED 17:49
DX: S00.93XA Contusion of unspecified part of head, initial encounter (principal); M70.20 Olecranon bursitis, unspecified elbow; I89.0 Lymphedema, not elsewhere classified; I10 Essential (primary) hypertension; D64.9 Anemia, unspecified; W01.198A Fall on same level from slipping, tripping and stumbling with subsequent striking against other object, initial encounter; Y92.009 Unspecified place in unspecified non-institutional (private) residence as the place of occurrence of the external cause; Z79.01 Long term (current) use of anticoagulants
CPT/HCPCS: 70450

== ENCOUNTER 2016-11-07 14:10 | Emergency (ER) | payer OTHER ==
[~2016-11-07] VITALS: Ht 162.6 cm; Wt 70.0 kg
[2016-11-07 14:17] VITALS: BP 138/82; PULSE 79; RESP 17; TEMP 97.8; O2SAT 96
--- NOTE | 2016-11-07 14:18 | PD ---
HPI . Right leg pain for 2 days Chief Complaint: right leg pain Time Seen by Provider: 14:17 Travel History International Travel<30 days: No Contact w/Intl Traveler<30days: No Traveled to known affect area: No History of Present Illness HPI 86-year-old with history of hypertension, COPD, history of CVA, history of restless leg syndrome, history of right knee surgery, history of lymphadenopathy in the left upper extremity secondary mastectomy in 1985 here with complaints of right leg pain. Patient is reporting 2 days worth of right leg pain mainly in the upper thigh. Patient does have some bruising and tells me she does not recall any episodes of falling or trauma to the area. She rates the pain as 3/10 at rest and 8/10 with movement. She describes it as aching pain. She has no other complaints. PFSH Past Medical History Hx Anticoagulant Therapy: Yes (PLAVIX) Anemia: Yes Arthritis: Yes Blood Disorders: No Anxiety: No Depression: No Heart Rhythm Problems: No Cancer: Yes (LEFT BREAST) Cardiovascular Problems: Yes (VEIN STRIPPING OF LEGS - BILATERALLY) High Cholesterol: No Chemotherapy: No Chest Pain: No Congestive Heart Failure: No COPD: Yes (MILD) Cerebrovascular Accident: Yes (2013) Diabetes: No Diminished Hearing: No Endocrine: Yes Gastrointestinal Disorders: Yes GERD: Yes Genitourinary: No Hypertension: Yes Immune Disorder: No Implanted Vascular Access Dvce: Yes Musculoskeletal: Yes Neurologic: Yes (NEUROPATHY) Psychiatric: No Reproductive: Yes (ONE PRODUCED TWINS) Respiratory: Yes (PT STATES "MILD COPD") Radiation Therapy: Yes Shingles: Yes Thyroid Disease: Yes Menopausal: Yes : 6 Para: 5 Miscarriage: 2 Past Surgical History Abdominal Surgery: Yes (PARTIAL COLECTOMY) AICD: No Arteriovenous Shunt: No Body Medical Devices: METAL PLATES IN THE NECK PER PT AND DAUGHTER/ discectomy Cardiac Surgery: No Ear Surgery: No Endocrine Surgery: No Eye Surgery: Yes (CAITLIN. CATARACT EXTRACT) Genitourinary Surgery: No Gynecologic Surgery: No Insulin Pump: No Joint Replacement: No Mastectomy: Yes (LEFT) Neurologic Surgery: No Oral Surgery: Yes (TEETH EXTRACTION) Pacemaker: No Thoracic Surgery: No Tonsillectomy: Yes Other Surgery: Yes (LT MASTECTOMY WITH NODE REMOVAL 1985- RT LEG VEIN STRIPPING ) Social History Alcohol Use: Yes (OCC WINE) Tobacco Use: No (FORMER) Substance Use: No Allergies-Medications (Allergen,Severity, Reaction): Coded Allergies: *MDRO Multi-Drug Resistant Organism (Verified Allergy, Unknown, 11/07/16) MRSA Reported Meds & Prescriptions Reported Meds & Active Scripts Active Reported Clotrimazole-Betamethasone Topical (Betamethasone/Clotrimazole) 1-0.05% Cream 1 Applic TOPICAL BID Probiotic Pearls (Probiotic Product) 1 Cap Cap 1 Cap PO DAILY Escitalopram (Escitalopram Oxalate) 20 Mg Tab 20 Mg PO DAILY [place] (Hydrocodone-Acetaminophen) 5-325 mg Tab 1 Tab PO Q6H PRN Calcium 600+D 200 (Calcium Carbonate-Vitamin D) 600-200 Mg-Unit Tab 1 Tab PO DAILY Diltiazem (Diltiazem HCl) 120 Mg Tab 120 Mg PO DAILY Pravastatin 20 Mg Tab 20 Mg PO HS Spiriva Handihaler (Tiotropium Inh) 18 Mcg Cap 18 Mcg INH DAILY 1 capsule = 18 mcg Ventolin Hfa 18 GM Inh (Albuterol Sulfate) 90 Mcg/Act Aer 1 Puff INH QID PRN Aspirin Childrens (Aspirin) 81 Mg Chew 81 Mg CHEW DAILY Loperamide (Loperamide HCl) 2 Mg Cap 2 Mg PO BID PRN One capsule after each loose stool. Not to exceed 8 capsules per day. Vitamin C (Ascorbic Acid) 500 Mg Tab 500 Mg PO DAILY Ropinirole 0.25 Mg Tab 0.25 Mg PO HS Methocarbamol 500 Mg Tab 500 Mg PO HS Lisinopril 5 Mg Tab 5 Mg PO DAILY Levoxyl (Levothyroxine Sodium) 50 Mcg Tab 50 Mcg PO DAILY Plavix (Clopidogrel Bisulfate) 75 Mg Tab 75 Mg PO DAILY Review of Systems General / Constitutional: No: Fever Eyes: No: Visual changes HENT: No: Headaches Cardiovascular: No: Chest Pain or Discomfort Respiratory: No: Shortness of Breath Gastrointestinal: No: Abdominal Pain Genitourinary: No: Dysuria Musculoskeletal: Positive: Pain (right leg pain) Skin: No Rash Neurologic: No: Weakness Psychiatric: No: Depression Endocrine: No: Polydipsia Hematologic/Lymphatic: No: Easy Bruising Physical Exam Narrative GENERAL: AAO x 3, no acute distress, Well-nourished, well-developed patient. SKIN: Warm and dry. No visible rashes. There is some ecchymosis on the right lateral thigh. HEAD: Normocephalic and atraumatic. EYES: No scleral icterus. No injection or drainage. ENT: No nasal drainage noted. Mucous membranes pink. Airway patent. NECK: Supple, trachea midline. No JVD. CARDIOVASCULAR: Regular rate and rhythm without murmurs, gallops, or rubs. 3/6 murmur best heard over mitral RESPIRATORY: Breath sounds equal bilaterally. No accessory muscle use. No rhonchi or rales. GASTROINTESTINAL: Abdomen soft, non-tender, nondistended. EXTREMITIES: No cyanosis or edema. Tenderness to right femur with deep palpation. BACK: Nontender without obvious deformity. No CVA tenderness. PSYCH: AAO x 3, normal affect. Data Data Last Documented VS Vital Signs Date Time Temp Pulse Resp B/P Pulse Ox O2 Delivery O2 Flow Rate FiO2 11/07/16 14:27 75 17 11/07/16 14:17 97.8 138/82 96 Orders Us Leg Venous Doppler (11/07/16 14:27) Femur (Ap & Lat/2vws) (11/07/16 14:27) MDM Medical Decision Making Medical Screen Exam Complete: Yes Emergency Medical Condition: Yes Medical Record Reviewed: Yes Differential Diagnosis Bone contusion, femur fracture, DVT, restless leg syndrome, OA Narrative Course 86-year-old with history of hypertension, COPD, history of CVA, history of restless leg syndrome, history of right knee surgery, history of lymphadenopathy in the left upper extremity secondary mastectomy in 1985 here with complaints of right leg pain. Patient is reporting 2 days worth of right leg pain mainly in the upper thigh. Patient does have some bruising and tells me she does not recall any episodes of falling or trauma to the area. She rates the pain as 3/10 at rest and 8/10 with movement. She describes it as aching pain. She has no other complaints. Patient seen and examined. Case discussed with Dr. Sen. We'll check a x-ray of the right femur as well as a venous Doppler to rule out DVT. If test are negative, patient will be cleared for discharge back to her assisted living facility. Last 24 hours Impressions Lower Extremity Ultrasound 11/07/16 6263 Signed Impressions: Service Date/Time: Monday, November 07, 2016 15:04 - CONCLUSION: 1. Negative for deep venous thrombosis. Popliteal cyst present measuring up to 6.8 x 2.4 x 2.4 cm. Newton Junior MD Femur X-Ray 11/07/16 142 Signed Impressions: Service Date/Time: Monday, November 07, 2016 15:05 - CONCLUSION: 1. No acute findings. 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 Newton Junior MD There is no acute fracture nor is there a DVT. I believe patient's pain is referred from her popliteal cyst. She can continue to use her home pain medications. She may benefit from orthopedic consultation for further recommendations and treatment. Discussed with patient and her family at bedside. Patient verbalized understanding of instructions, questions were answered, and thanked me for their care. I advised them if their condition worsens, please return to the nearest emergency room for further care. Diagnosis Primary Impression: Popliteal cyst, unruptured Qualified Code: M71.21 - Popliteal cyst, unruptured, right Patient Instructions: Bakers Cyst (ED), General Instructions Additional Instructions: Please return to emergency department if your symptoms return or worsen. Follow up with your primary care provider. Continue your regular pain medications as needed. You may need to see orthopedic physician for further recommendations regarding this cyst. Med/Other Pt SpecificInfo: No Change to Meds Disposition: 01 DISCHARGE HOME Condition: Stable Yue Hunter Nov 07, 2016 14:17
[2016-11-07] MEDS ORDERED: LOPE2CAP PO (15:33)
[2016-11-07] MEDS ORDERED: VENTAER INH (15:39)
[2016-11-07] MEDS ORDERED: PRAV20TA2 PO (15:39)
[2016-11-07] MEDS ORDERED: ASPI81CH5 CHEW (15:39)
[2016-11-07] MEDS ORDERED: SPIRCAP INH (15:39)
[2016-11-07] MEDS ORDERED: DILT120T PO (15:39)
[2016-11-07] MEDS ORDERED: NORC5TAB PO (15:42)
[2016-11-07] MEDS ORDERED: CALCTAB19 PO (15:42)
[2016-11-07] MEDS ORDERED: ESCI20TA PO (15:47)
[2016-11-07] MEDS ORDERED: PROB1CAP PO (15:47)
[2016-11-07] MEDS ORDERED: CLOTCRE TOPICAL (15:50)
--- NOTE | 2016-11-07 15:59 | RADRPT ---
EXAM DATE/TIME: 11/07/2016 15:04 [facility] COMPARISON: No previous studies available for comparison. INDICATIONS : Right leg pain. MEDICAL HISTORY : Chronic obstructive pulmonary disease. Hypertension. Gastroesophageal reflux disease. Thyroid dise ase. Hearing loss. Cerebrovascular accident. Numbness. Anticoagulant therapy, Plavix. . Arth ritis. Osteoporosis. Ancmia. Left breast cancer. Measles. Shingles. Blood transfusion. MRSA. SURGICAL HISTORY : Tonsillectomy. Mastectomy, left. Partial colectomy. Bilateral cataract removal. Bilateral lens repl acement. Right leg vein stripping. Incision and drainage of MRSA left arm. Right wrist pinning. ENCOUNTER: Subsequent ACUITY: 1 day PAIN SCORE: 5/10 LOCATION: Right leg. TECHNIQUE: Venous ultrasound of the leg was performed from the inguinal ligament to the proximal calf. Real-willy e, color Doppler and spectral tracing, compression and augmentation techniques were used. FINDINGS: There is normal compressibility of the deep venous system from the inguinal region to the proximal ca lf. No echogenic clot is seen in the lumen of the common femoral, femoral, popliteal, and posterior tibial veins. There is a normal response of the venous system to proximal and distal augmentation an d respiration. CONCLUSION: 1. Negative for deep venous thrombosis. Popliteal cyst present measuring up to 6.8 x 2.4 x 2.4 cm. Newton Junior MD on November 07, 2016 at 15:57 Board Certified Radiologist. This report was verified electronically.
--- NOTE | 2016-11-07 16:20 | RADRPT ---
EXAM DATE/TIME: 11/07/2016 15:05 [facility] COMPARISON: FEMUR RIGHT (AP & LAT/2VWS), July 05, 2016, 14:24. INDICATIONS : Right leg pain. MEDICAL HISTORY : Cardiovascular disease. Cerebrovascular disease. Chronic obstructive SURGICAL HISTORY : None. ENCOUNTER: Initial ACUITY: 1 day PAIN SCORE: 9/10 LOCATION: Right thigh. FINDINGS: Two view examination of the right femur demonstrates no evidence of fracture or dislocation. Bony mi neralization is normal. The soft tissue structures are intact. CONCLUSION: 1. No acute findings. 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 Newton Junior MD on November 07, 2016 at 16:18 Board Certified Radiologist. This report was verified electronically.
== END 2016-11-07 19:04 | disposition home or self-care (01) ==
LOC: NEPC 14:10
DX: M71.21 Synovial cyst of popliteal space [Baker], right knee (principal); Z79.01 Long term (current) use of anticoagulants; I10 Essential (primary) hypertension
CPT/HCPCS: 73552; 93971

== ENCOUNTER 2017-11-02 17:00 | Inpatient (IN) | payer OTHER, MEDICAID, MEDICARE ==
[~2017-11-02] VITALS: Ht 160 cm; Wt 84.3 kg
[~2017-11-02 17:00] MED LIST changes: -ASPI1TAB69 PO; +ASPI81CH5 CHEW; +CALCTAB19 PO; -CALCTAB38 PO; +CLOTCRE TOPICAL; -COLA100C3 PO; -DILT-60 PO; +DILT120T PO; +ESCI20TA PO; -ESCI5TAB PO; -GLUCTAB32 PO; +LOPE2CAP PO; -MAGN400T2 PO; -MAXZTAB PO; +NORC5TAB PO; +PRAV20TA2 PO; +PROB1CAP PO; +SPIRCAP INH; +VENTAER INH; -[UNRECOGNIZED DRUG - CODE] PO
[2017-11-02 17:14] VITALS: BP 155/104; PULSE 102; RESP 18; TEMP 100.2; O2SAT 91
[2017-11-02] MEDS ORDERED: metroNIDAZOLE 500 MG INJ 100 ML IV STA (17:14)
[2017-11-02] MEDS ORDERED: SODIUM CHLOR 0.9% 1000 ML INJ 1,000 ML IV ONE (17:14)
[2017-11-02] MEDS ORDERED: PIPERACIL-TAZO 4.5 GM PREMIX 100 ML IV STA (17:14)
[2017-11-02] MEDS ORDERED: SODIUM CHLOR 0.9% 1000 ML INJ 800 ML IV ONE (17:14)
[2017-11-02] MEDS ORDERED: HYDROmorphone HCL PF 1 MG/ML VIAL IV PUSH ONE (17:15)
[2017-11-02] MEDS ORDERED: ACETAMINOPHEN 325 MG TAB PO ONE (17:15)
[2017-11-02] MEDS ORDERED: VANCOMYCIN 500 MG VIAL (FOR ORAL USE ONLY) PO ONE (17:15)
[2017-11-02] MEDS ORDERED: ONDANSETRON HCL 4 MG/2 ML VIAL IV PUSH ONE (17:15)
[2017-11-02 17:20] VITALS: O2SAT 91
[2017-11-02] MEDS ORDERED: VANCOMYCIN 25 MG/ML SOLN 100 ML BOTTLE PO ONE (17:30)
[2017-11-02 17:51] LABS: AUTOMATED NEUTROPHIL # 11.7 TH/MM3 (1.8-7.7); BASOPHIL # 0.5 TH/MM3 (0-0.2); BASOPHIL % 3.4 % (0.0-2.0); EOSINOPHIL # 0.4 TH/MM3 (0-0.4); HEMATOCRIT 40.8 % (35.0-46.0); HEMOGLOBIN 13.4 GM/DL (11.6-15.3); LYMPH % 4.7 % (9.0-44.0); LYMPHOCYTE # 0.7 TH/MM3 (1.0-4.8); MEAN CORPUSCULAR HEMOGLOBIN 30.8 PG (27.0-34.0); MEAN CORPUSCULAR HGB CONC 32.8 % (32.0-36.0); MONO % 5.2 % (0.0-8.0); MONOCYTE # 0.7 TH/MM3 (0-0.9); NEUT % 83.7 % (16.0-70.0); PLATELET COUNT 366 TH/MM3 (150-450); RED BLOOD COUNT 4.35 MIL/MM3 (4.00-5.30); RED CELL DISTRIBUTION WIDTH 14.1 % (11.6-17.2)
[2017-11-02] MEDS ORDERED: LACTCAP8 PO (17:54)
[2017-11-02] MEDS ORDERED: LEVO88TA2 PO (17:54)
[2017-11-02] MEDS ORDERED: FURO1TAB60 PO (17:54)
[2017-11-02 18:00] LABS: CHLORIDE 106 MEQ/L (98-107); SODIUM (NA) 139 MEQ/L (136-145)
[2017-11-02 18:03] LABS: PROTHROMBIN TIME - PATIENT 10.5 SEC (9.8-11.6)
[2017-11-02 18:05] LABS: ALBUMIN 3.7 GM/DL (3.4-5.0); BICARBONATE 25.2 MEQ/L (21.0-32.0); BLOOD UREA NITROGEN 19 MG/DL (7-18); GLUCOSE,RANDOM 110 MG/DL (74-106); MAGNESIUM 1.9 MG/DL (1.5-2.5)
[2017-11-02 18:07] LABS: ALT (GPT) 13 U/L (10-53); AST (GOT) 14 U/L (15-37)
[2017-11-02 18:08] LABS: CREATININE 0.78 MG/DL (0.50-1.00); GLOMERULAR FILTRATION RATE 70 ML/MIN (>89)
[2017-11-02 18:09] LABS: TOTAL BILIRUBIN ADULT 0.6 MG/DL (0.2-1.0); TOTAL PROTEIN 7.7 GM/DL (6.4-8.2)
[2017-11-02 18:10] LABS: ALKALINE PHOSPHATASE 152 U/L (45-117)
[2017-11-02 18:13] LABS: TROPONIN I LESS THAN 0.02 NG/ML (0.02-0.05)
[2017-11-02 18:15] VITALS: BP 183/99; PULSE 105; RESP 16; TEMP 100.1; O2SAT 94
--- NOTE | 2017-11-02 18:20 | RADRPT ---
EXAM DATE/TIME: 11/02/2017 17:56 [facility] COMPARISON: CHEST SINGLE AP, August 16, 2016, 14:43. INDICATIONS : Chest discomfort, nausea, vomiting, diarrhea for 4 days MEDICAL HISTORY : Chronic obstructive pulmonary disease. Hypertension. Gastroesophageal reflux disease. Thyroid disease . Cerebrovascular accident. Anticoagulant therapy, Plavix. Arthritis. Osteoporosis. Ancmia. Left lyla st cancer. Measles Shingles. Blood transfusion. MRSA SURGICAL HISTORY : Tonsillectomy. Mastectomy, left. Partial colectomy. Bilateral cataract removal. Bilateral lens replac ement. Right leg vein stripping. Incision and drainage of MRSA left arm. Right wrist pinning ENCOUNTER: Initial ACUITY: 4 - 6 days PAIN SCORE: 0/10 LOCATION: Bilateral chest FINDINGS: A single view of the chest demonstrates heart size within normal limits. Minimal basal atelectasis or scarring. Mild apical pleural thickening. Mild scoliosis. No pneumothorax. CONCLUSION: 1. Minimal basal atelectasis or scarring. No consolidation or effusion. Newton Junior MD on November 02, 2017 at 18:14 Board Certified Radiologist. This report was verified electronically.
[2017-11-02] MEDS ORDERED: HYDROmorphone HCL PF 2 MG/ML VIAL IV PUSH ONE (18:30)
[2017-11-02] MEDS ORDERED: PROMETHAZINE INJ 25 MG/ML VIAL IM ONE (18:30)
--- NOTE | 2017-11-02 18:31 | PD ---
HPI Chief Complaint: GI Complaint Time Seen by Provider: 17:14 Travel History International Travel<30 days: No Contact w/Intl Traveler<30days: No Traveled to known affect area: No History of Present Illness HPI 87-year-old female complains of diarrhea and vomiting. Her daughter does provide some history reporting seen her today when she would was not hungry at lunch, very unusual behavior. The patient arrives here by EMS and upon arrival had several episodes of diarrhea in bed associated with vomiting. She denies abdominal pain. She denies chest pain shortness of breath. EMS reports a temperature 100.2 coming over as well as a blood pressure of 100 and a pulse of about 100. PFSH Past Medical History Hx Anticoagulant Therapy: Yes (PLAVIX) Anemia: Yes Arthritis: Yes Blood Disorders: No Anxiety: No Depression: No Heart Rhythm Problems: No Cancer: Yes (LEFT BREAST) Cardiovascular Problems: Yes (VEIN STRIPPING OF LEGS - BILATERALLY) High Cholesterol: No Chemotherapy: No Chest Pain: No Congestive Heart Failure: No COPD: Yes (MILD) Cerebrovascular Accident: Yes (2013) Diabetes: No Diminished Hearing: No Endocrine: Yes Gastrointestinal Disorders: Yes GERD: Yes Genitourinary: No Hypertension: Yes Immune Disorder: No Implanted Vascular Access Dvce: Yes Musculoskeletal: Yes Neurologic: Yes (NEUROPATHY) Psychiatric: No Reproductive: Yes (ONE PRODUCED TWINS) Respiratory: Yes (PT STATES "MILD COPD") Radiation Therapy: Yes Shingles: Yes Thyroid Disease: Yes Tetanus Vaccination: < 5 Years Influenza Vaccination: Yes ?: Not Menopausal: Yes : 6 Para: 5 Miscarriage: 2 Past Surgical History Abdominal Surgery: Yes (PARTIAL COLECTOMY) AICD: No Arteriovenous Shunt: No Body Medical Devices: METAL PLATES IN THE NECK PER PT AND DAUGHTER/ discectomy Cardiac Surgery: No Ear Surgery: No Endocrine Surgery: No Eye Surgery: Yes (CAITLIN. 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) MRSA Reported Meds & Prescriptions Reported Meds & Active Scripts Active Reported Probiotic (Lactobacillus Acidophilus) 10 Billion Cell Cap 1 Cap PO DIRECTED Levothyroxine (Levothyroxine Sodium) 88 Mcg Tab 88 Mcg PO DAILY Lasix (Furosemide) 40 Mg Tab 40 Mg PO DAILY Escitalopram (Escitalopram Oxalate) 20 Mg Tab 20 Mg PO DAILY Calcium 600+D 200 (Calcium Carbonate-Vitamin D) 600-200 Mg-Unit Tab 1 Tab PO DAILY Diltiazem (Diltiazem HCl) 120 Mg Tab 120 Mg PO DAILY Pravastatin 20 Mg Tab 20 Mg PO HS Spiriva Handihaler (Tiotropium Inh) 18 Mcg Cap 18 Mcg INH DAILY 1 capsule = 18 mcg Ventolin Hfa 18 GM Inh (Albuterol Sulfate) 90 Mcg/Act Aer 1 Puff INH QID PRN Aspirin Childrens (Aspirin) 81 Mg Chew 81 Mg CHEW DAILY Loperamide (Loperamide HCl) 2 Mg Cap 2 Mg PO BID PRN One capsule after each loose stool. Not to exceed 8 capsules per day. Ropinirole 0.25 Mg Tab 0.25 Mg PO HS Methocarbamol 500 Mg Tab 500 Mg PO HS Lisinopril 5 Mg Tab 5 Mg PO DAILY Plavix (Clopidogrel Bisulfate) 75 Mg Tab 75 Mg PO DAILY Review of Systems ROS Limitations: Clinical Condition Physical Exam Narrative GENERAL: 87-year-old female well-nourished well-developed Vital Signs Date Time Temp Pulse Resp B/P (MAP) Pulse Ox O2 Delivery O2 Flow Rate FiO2 11/02/17 18:15 100.1 105 16 183/99 (127) 94 Nasal Cannula 2.00 11/02/17 17:20 91 Room Air 11/02/17 17:20 91 Room Air 11/02/17 17:14 100.2 102 18 155/104 (121) 91 Room Air SKIN: Warm and dry. HEAD: Atraumatic. Normocephalic. EYES: Pupils equal and round. No scleral icterus. No injection or drainage. ENT: No nasal bleeding or discharge. Mucous membranes pink and moist. NECK: Trachea midline. No JVD. CARDIOVASCULAR: Tachycardia. Regular rhythm. RESPIRATORY: No accessory muscle use. Clear to auscultation. Breath sounds equal bilaterally. GASTROINTESTINAL: Generalized nonspecific tenderness. Soft. MUSCULOSKELETAL: Extremities without clubbing, cyanosis, or edema. No obvious deformities. NEUROLOGICAL: Awake and alert. No obvious cranial nerve deficits. Motor grossly within normal limits. Five out of 5 muscle strength in the arms and legs. Normal speech. PSYCHIATRIC: Appropriate mood and affect; insight and judgment normal. Data Data Last Documented VS Vital Signs Date Time Temp Pulse Resp B/P (MAP) Pulse Ox O2 Delivery O2 Flow Rate FiO2 11/02/17 20:53 101 18 165/78 (107) 93 11/02/17 19:30 Nasal Cannula 2.00 11/02/17 18:15 100.1 Orders Orders Sepsis Workup Initiated (11/02/17 ) Complete Blood Count With Diff (11/02/17 17:14) Comprehensive Metabolic Panel (11/02/17 17:14) Prothrombin Time / Inr (Pt) (11/02/17 17:14) Act Partial Throm Time (Ptt) (11/02/17 17:14) Lactic Acid Sepsis Protocol (11/02/17 17:14) Magnesium (Mg) (11/02/17 17:14) Lipase (11/02/17 17:14) Ckmb (Isoenzyme) Profile (11/02/17 17:14) Troponin I (11/02/17 17:14) Urinalysis - C+S If Indicated (11/02/17 17:14) Blood Culture (11/02/17 17:14) Chest, Single Ap (11/02/17 17:14) Ecg Monitoring (11/02/17 17:14) Iv Access Insert/Monitor (11/02/17 17:14) Oximetry (11/02/17 17:14) Oxygen Administration (11/02/17 17:14) Acetaminophen (Tylenol) (11/02/17 17:15) Hydromorphone Pf Inj (Dilaudid Pf Inj) (11/02/17 17:15) Ondansetron Inj (Zofran Inj) (11/02/17 17:15) Ct Abd/Pel W Iv Contrast(Rout) (11/02/17 17:14) Piperacil-Tazo 4.5 Gm Premix (Zosyn 4.5 (11/02/17 17:14) Metronidazole 500 Mg Inj (Flagyl 500 Mg (11/02/17 17:14) Sodium Chlor 0.9% 1000 Ml Inj (Ns 1000 M (11/02/17 17:14) Sodium Chlor 0.9% 1000 Ml Inj (Ns 1000 M (11/02/17 17:14) Vancomycin 25 Mg/Ml Liq (Vancomycin 25 M (11/02/17 17:30) Hydromorphone Pf Inj (Dilaudid Pf Inj) (11/02/17 18:30) Promethazine Inj (Phenergan Inj) (11/02/17 18:30) Influenzae A/B Antigen (11/02/17 18:17) C Diff Toxin Pcr (11/02/17 18:17) Iohexol 350 Inj (Omnipaque 350 Inj) (11/02/17 19:36) Vital Signs (Adult) Q4H (11/02/17 20:43) Activity Oob With Assistance (11/02/17 20:43) Logging Contractor / Telemetry .CONTINUOUS (11/02/17 20:43) Diet Heart Healthy (11/03/17 Breakfast) Sodium Chloride 0.9% Flush (Ns Flush) (11/02/17 20:45) Sodium Chloride 0.9% Flush (Ns Flush) (11/02/17 21:00) Basic Metabolic Panel (Bmp) (11/03/17 06:00) Complete Blood Count With Diff (11/03/17 06:00) Pt Request For Service (11/02/17 20:43) Case Management Consult (11/02/17 20:43) Naloxone Inj (Narcan Inj) (11/02/17 20:45) Admit To Inpatient (11/02/17 ) Inpatient Certification (11/02/17 ) C Diff Toxin Pcr (11/02/17 20:43) Enteric Path (Stool) (11/02/17 20:43) Ondansetron Inj (Zofran Inj) (11/02/17 20:45) Morphine Inj (Morphine Inj) (11/02/17 20:45) Admit Order (Ed Use Only) (11/02/17 ) Logging Contractor / Telemetry ROSANNA.Q8H (11/02/17 20:52) Activity Bed Rest (11/02/17 20:52) Notify Dr: Other (11/02/17 20:52) Labs Laboratory Tests Test 11/02/17 17:35 11/02/17 18:23 White Blood Count 14.0 TH/MM3 Red Blood Count 4.35 MIL/MM3 Hemoglobin 13.4 GM/DL Hematocrit 40.8 % Mean Corpuscular Volume 94.0 FL Mean Corpuscular Hemoglobin 30.8 PG Mean Corpuscular Hemoglobin Concent 32.8 % Red Cell Distribution Width 14.1 % Platelet Count 366 TH/MM3 Mean Platelet Volume 9.0 FL Neutrophils (%) (Auto) 83.7 % Lymphocytes (%) (Auto) 4.7 % Monocytes (%) (Auto) 5.2 % Eosinophils (%) (Auto) 3.0 % Basophils (%) (Auto) 3.4 % Neutrophils # (Auto) 11.7 TH/MM3 Lymphocytes # (Auto) 0.7 TH/MM3 Monocytes # (Auto) 0.7 TH/MM3 Eosinophils # (Auto) 0.4 TH/MM3 Basophils # (Auto) 0.5 TH/MM3 CBC Comment AUTO DIFF Differential Comment AUTO DIFF CONFIRMED Prothrombin Time 10.5 SEC Prothromb Time International Ratio 1.0 RATIO Activated Partial Thromboplast Time 25.9 SEC Blood Urea Nitrogen 19 MG/DL Creatinine 0.78 MG/DL Random Glucose 110 MG/DL Total Protein 7.7 GM/DL Albumin 3.7 GM/DL Calcium Level 9.0 MG/DL Magnesium Level 1.9 MG/DL Alkaline Phosphatase 152 U/L Aspartate Amino Transf (AST/SGOT) 14 U/L Alanine Aminotransferase (ALT/SGPT) 13 U/L Total Bilirubin 0.6 MG/DL Sodium Level 139 MEQ/L Potassium Level 3.7 MEQ/L Chloride Level 106 MEQ/L Carbon Dioxide Level 25.2 MEQ/L Anion Gap 8 MEQ/L Estimat Glomerular Filtration Rate 70 ML/MIN Lactic Acid Level 1.4 mmol/L Total Creatine Kinase 38 U/L Troponin I LESS THAN 0.02 NG/ML Lipase 139 U/L Stool C. difficile Toxin (PCR) NEGATIVE Stl C. difficile Toxin Epiderm 027 PRESUMPTIVE NEGATIVE [facility] Medical Decision Making Medical Screen Exam Complete: Yes Emergency Medical Condition: Yes Medical Record Reviewed: Yes Differential Diagnosis sepsis, severe sepsis, diverticulosis, diverticulitis, C. difficile colitis Narrative Course CBC & BMP Diagram 11/02/17 17:35 Total Protein 7.7, Albumin 3.7, Calcium Level 9.0, Magnesium Level 1.9, Alkaline Phosphatase 152 H, Aspartate Amino Transf (AST/SGOT) 14 L, Alanine Aminotransferase (ALT/SGPT) 13, Total Bilirubin 0.6 Lactic acid is 1.4 The lipase is 139 The troponin is < 0.02 Case discussed with oncoming provider with CT pending and plan for admission. Jah Oshea MD Nov 02, 2017 18:31
--- NOTE | 2017-11-02 19:19 | PD ---
Physical Exam Date Seen by Provider: Nov 02, 2017 Time Seen by Provider: 19:18 Narrative Accepted in transfer of care from Dr. Oshea General: Elderly ill-appearing female in no acute distress or respiratory distress; GCS 15 Data Data Last Documented VS Vital Signs Date Time Temp Pulse Resp B/P (MAP) Pulse Ox O2 Delivery O2 Flow Rate FiO2 11/02/17 20:53 101 18 165/78 (107) 93 11/02/17 19:30 Nasal Cannula 2.00 11/02/17 18:15 100.1 Orders Orders Sepsis Workup Initiated (11/02/17 ) Complete Blood Count With Diff (11/02/17 17:14) Comprehensive Metabolic Panel (11/02/17 17:14) Prothrombin Time / Inr (Pt) (11/02/17 17:14) Act Partial Throm Time (Ptt) (11/02/17 17:14) Lactic Acid Sepsis Protocol (11/02/17 17:14) Magnesium (Mg) (11/02/17 17:14) Lipase (11/02/17 17:14) Ckmb (Isoenzyme) Profile (11/02/17 17:14) Troponin I (11/02/17 17:14) Urinalysis - C+S If Indicated (11/02/17 17:14) Blood Culture (11/02/17 17:14) Chest, Single Ap (11/02/17 17:14) Ecg Monitoring (11/02/17 17:14) Iv Access Insert/Monitor (11/02/17 17:14) Oximetry (11/02/17 17:14) Oxygen Administration (11/02/17 17:14) Acetaminophen (Tylenol) (11/02/17 17:15) Hydromorphone Pf Inj (Dilaudid Pf Inj) (11/02/17 17:15) Ondansetron Inj (Zofran Inj) (11/02/17 17:15) Ct Abd/Pel W Iv Contrast(Rout) (11/02/17 17:14) Piperacil-Tazo 4.5 Gm Premix (Zosyn 4.5 (11/02/17 17:14) Metronidazole 500 Mg Inj (Flagyl 500 Mg (11/02/17 17:14) Sodium Chlor 0.9% 1000 Ml Inj (Ns 1000 M (11/02/17 17:14) Sodium Chlor 0.9% 1000 Ml Inj (Ns 1000 M (11/02/17 17:14) Vancomycin 25 Mg/Ml Liq (Vancomycin 25 M (11/02/17 17:30) Hydromorphone Pf Inj (Dilaudid Pf Inj) (11/02/17 18:30) Promethazine Inj (Phenergan Inj) (11/02/17 18:30) Influenzae A/B Antigen (11/02/17 18:17) C Diff Toxin Pcr (11/02/17 18:17) Iohexol 350 Inj (Omnipaque 350 Inj) (11/02/17 19:36) Vital Signs (Adult) Q4H (11/02/17 20:43) Activity Oob With Assistance (11/02/17 20:43) Waxer Operator / Telemetry .CONTINUOUS (11/02/17 20:43) Diet Heart Healthy (11/03/17 Breakfast) Sodium Chloride 0.9% Flush (Ns Flush) (11/02/17 20:45) Sodium Chloride 0.9% Flush (Ns Flush) (11/02/17 21:00) Basic Metabolic Panel (Bmp) (11/03/17 06:00) Complete Blood Count With Diff (11/03/17 06:00) Pt Request For Service (11/02/17 20:43) Case Management Consult (11/02/17 20:43) Naloxone Inj (Narcan Inj) (11/02/17 20:45) Admit To Inpatient (11/02/17 ) Inpatient Certification (11/02/17 ) C Diff Toxin Pcr (11/02/17 20:43) Enteric Path (Stool) (11/02/17 20:43) Ondansetron Inj (Zofran Inj) (11/02/17 20:45) Morphine Inj (Morphine Inj) (11/02/17 20:45) Admit Order (Ed Use Only) (11/02/17 ) Waxer Operator / Telemetry ROSANNA.Q8H (11/02/17 20:52) Activity Bed Rest (11/02/17 20:52) Notify Dr: Other (11/02/17 20:52) Labs Laboratory Tests Test 11/02/17 17:35 White Blood Count 14.0 TH/MM3 Red Blood Count 4.35 MIL/MM3 Hemoglobin 13.4 GM/DL Hematocrit 40.8 % Mean Corpuscular Volume 94.0 FL Mean Corpuscular Hemoglobin 30.8 PG Mean Corpuscular Hemoglobin Concent 32.8 % Red Cell Distribution Width 14.1 % Platelet Count 366 TH/MM3 Mean Platelet Volume 9.0 FL Neutrophils (%) (Auto) 83.7 % Lymphocytes (%) (Auto) 4.7 % Monocytes (%) (Auto) 5.2 % Eosinophils (%) (Auto) 3.0 % Basophils (%) (Auto) 3.4 % Neutrophils # (Auto) 11.7 TH/MM3 Lymphocytes # (Auto) 0.7 TH/MM3 Monocytes # (Auto) 0.7 TH/MM3 Eosinophils # (Auto) 0.4 TH/MM3 Basophils # (Auto) 0.5 TH/MM3 CBC Comment AUTO DIFF Differential Comment AUTO DIFF CONFIRMED Prothrombin Time 10.5 SEC Prothromb Time International Ratio 1.0 RATIO Activated Partial Thromboplast Time 25.9 SEC Blood Urea Nitrogen 19 MG/DL Creatinine 0.78 MG/DL Random Glucose 110 MG/DL Total Protein 7.7 GM/DL Albumin 3.7 GM/DL Calcium Level 9.0 MG/DL Magnesium Level 1.9 MG/DL Alkaline Phosphatase 152 U/L Aspartate Amino Transf (AST/SGOT) 14 U/L Alanine Aminotransferase (ALT/SGPT) 13 U/L Total Bilirubin 0.6 MG/DL Sodium Level 139 MEQ/L Potassium Level 3.7 MEQ/L Chloride Level 106 MEQ/L Carbon Dioxide Level 25.2 MEQ/L Anion Gap 8 MEQ/L Estimat Glomerular Filtration Rate 70 ML/MIN Lactic Acid Level 1.4 mmol/L Total Creatine Kinase 38 U/L Troponin I LESS THAN 0.02 NG/ML Lipase 139 U/L [facility] Medical Record Reviewed: Yes Supervised Visit with RICHMOND: No Interpretation(s) CT abd/pel: CONCLUSION: 1. Mild ileus. Small fat containing ventral hernia. Small hiatal hernia. Basal atelectasis in the lungs. No free fluid or free air. Mildly enlarged inguinal lymph nodes bilaterally. Newton Junior MD on November 02, 2017 at 19:50 Board Certified Radiologist. This report was verified electronically. Last Impressions Chest X-Ray 11/02/17 [id number] Signed Impressions: Service Date/Time: Thursday, November 02, 2017 17:56 - CONCLUSION: 1. Minimal basal atelectasis or scarring. No consolidation or effusion. Newton Junior MD Abdomen/Pelvis CT 11/02/17 [id number] Signed Impressions: Service Date/Time: Thursday, November 02, 2017 19:28 - CONCLUSION: 1. Mild ileus. Small fat containing ventral hernia. Small hiatal hernia. Basal atelectasis in the lungs. No free fluid or free air. Mildly enlarged inguinal lymph nodes bilaterally. Newton Junior MD CBC & BMP Diagram 11/02/17 17:35 Total Protein 7.7, Albumin 3.7, Calcium Level 9.0, Magnesium Level 1.9, Alkaline Phosphatase 152 H, Aspartate Amino Transf (AST/SGOT) 14 L, Alanine Aminotransferase (ALT/SGPT) 13, Total Bilirubin 0.6 Vital Signs Date Time Temp Pulse Resp B/P (MAP) Pulse Ox O2 Delivery O2 Flow Rate FiO2 11/02/17 19:30 101 18 181/83 (115) 93 Nasal Cannula 2.00 11/02/17 18:15 100.1 105 16 183/99 (127) 94 Nasal Cannula 2.00 11/02/17 17:20 91 Room Air 11/02/17 17:20 91 Room Air 11/02/17 17:14 100.2 102 18 155/104 (121) 91 Room Air Differential Diagnosis Accepted in transfer of care from Dr. Oshea; please refer to his dictation Narrative Course Accepted in transfer of care from Dr. Oshea for follow up labs and disposition Sepsis Criteria SIRS Criteria (2 or more): Heart rate over 90, WBC > 36562, < 4000 or > 10% bands Sepsis Criteria (SIRS+source): Infect source susp/known Physician Communication Physician Communication call placed to [facility] service Diagnosis Primary Impression: Acute diarrhea Additional Impressions: Ileus Sepsis Admitting Information Admitting Physician Requests: Admit Phylicia Cooney MD Nov 02, 2017 19:19
[2017-11-02 19:30] VITALS: BP 181/83; PULSE 101; RESP 18; O2SAT 93
[2017-11-02] MEDS ORDERED: IOHEXOL 350 MG/ML 10 ML VIAL (for RAD DIAG) IVCONTRAST ONE (19:36)
--- NOTE | 2017-11-02 20:00 | RADRPT ---
EXAM DATE/TIME: 11/02/2017 19:28 [place] COMPARISON: No previous studies available for comparison. INDICATIONS : Nausea, vomiting, and diarrhea. IV CONTRAST: 75 cc Omnipaque 350 (iohexol) IV ORAL CONTRAST: No oral contrast ingested. RADIATION DOSE: 12.64 CTDIvol (mGy) MEDICAL HISTORY : Chronic obstructive pulmonary disease. Carcinoma, breast. Osteoporosis. SURGICAL HISTORY : Colon resection. Mastectomy, left. ENCOUNTER: Initial ACUITY: 3 days PAIN SCALE: 4/10 LOCATION: abdomen TECHNIQUE: Volumetric scanning of the abdomen and pelvis was performed. Using automated exposure control and ad justment of the mA and/or kV according to patient size, radiation dose was kept as low as reasonably achievable to obtain optimal diagnostic quality images. DICOM format image data is available electro nically for review and comparison. FINDINGS: There is dependent atelectasis at the lung bases. No acute findings in the liver, spleen, adrenals, kidneys or pancreas. No calcified gallstones. There is a fat-containing ventral hernia measuring about 3.5 cm in diameter. Mild ileus. No evidence for obstruction 3 mildly enlarged inguinal lymph nodes bilaterally. CONCLUSION: 1. Mild ileus. Small fat containing ventral hernia. Small hiatal hernia. Basal atelectasis in the christina gs. No free fluid or free air. Mildly enlarged inguinal lymph nodes bilaterally. Newton Junior MD on November 02, 2017 at 19:50 Board Certified Radiologist. This report was verified electronically.
[2017-11-02] MEDS ORDERED: NALOXONE HCL 0.4 MG/ML AMP IV PUSH PRN (20:45)
[2017-11-02] MEDS ORDERED: SODIUM CHLORIDE 0.9% FLUSH 10 ML FLUSH IV FLUSH PRN (20:45)
[2017-11-02] MEDS ORDERED: ONDANSETRON HCL 4 MG/2 ML VIAL IV PUSH PRN (20:45)
[2017-11-02 20:53] VITALS: BP 165/78; PULSE 101; RESP 18; O2SAT 93
[2017-11-02] MEDS: SODIUM CHLORIDE 0.9% FLUSH 10 ML FLUSH IV FLUSH SCH (21:00)
[2017-11-02 22:26] LABS: BILIRUBIN, URINE NEG (NEG); BLOOD, URINE NEG (NEG); GLUCOSE,URINE NEG (NEG); KETONE, URINE NEG (NEG); NITRITE,URINE NEG (NEG); URINE COLOR YELLOW (YELLW/STRAW); URINE LEUKOCYTE ESTERASE NEG (NEG)
[2017-11-02 22:32] LABS: SQUAMOUS EPITHELIAL CELL URINE 0-5 /hpf (0-5)
[2017-11-02 22:37] VITALS: BP 161/89; PULSE 101; RESP 18; O2SAT 96
[2017-11-03] VITALS (10 sets, daily range): BP systolic 131–174; BP diastolic 70–98; PULSE 74–93; RESP 12–20; TEMP 97.3–98.4; O2SAT 92–96
[2017-11-03 06:13] LABS: AUTOMATED NEUTROPHIL # 6.5 TH/MM3 (1.8-7.7); BASOPHIL % 0.5 % (0.0-2.0); EOSINOPHIL # 0.1 TH/MM3 (0-0.4); EOSINOPHIL % 0.8 % (0.0-4.0); HEMATOCRIT 37.4 % (35.0-46.0); LYMPH % 6.3 % (9.0-44.0); LYMPHOCYTE # 0.5 TH/MM3 (1.0-4.8); MEAN CELL VOLUME 94.5 FL (80.0-100.0); MEAN CORPUSCULAR HEMOGLOBIN 30.3 PG (27.0-34.0); MEAN PLATELET VOLUME 8.8 FL (7.0-11.0); MONO % 7.9 % (0.0-8.0); MONOCYTE # 0.6 TH/MM3 (0-0.9); NEUT % 84.5 % (16.0-70.0); PLATELET COUNT 282 TH/MM3 (150-450); RED BLOOD COUNT 3.96 MIL/MM3 (4.00-5.30); RED CELL DISTRIBUTION WIDTH 13.6 % (11.6-17.2); WHITE BLOOD COUNT 7.7 TH/MM3 (4.0-11.0)
[2017-11-03 06:21] LABS: BICARBONATE 27.3 MEQ/L (21.0-32.0); CALCIUM 7.9 MG/DL (8.5-10.1)
[2017-11-03 06:52] LABS: CREATININE 0.77 MG/DL (0.50-1.00)
[2017-11-03] MEDS: SODIUM CHLORIDE 0.9% FLUSH 10 ML FLUSH IV FLUSH SCH ×2 (10:11→20:50)
[2017-11-03] MEDS: MORPHINE SULFATE 2 MG/ML INJ IV PUSH PRN ×2 (10:15→13:16)
[2017-11-03] MEDS ORDERED: LOPERAMIDE HCL 2 MG CAP PO PRN (11:45)
[2017-11-03] MEDS ORDERED: ALBUTEROL SULFATE 90 MCG/ACT HFA 8 GM INHALER INH PRN (11:45)
[2017-11-03] MEDS: LISINOPRIL 5 MG TAB PO SCH (12:46)
[2017-11-03] MEDS: ESCITALOPRAM OXALATE 20 MG TAB PO SCH (12:46)
[2017-11-03] MEDS: DILTIAZEM-CD 120 MG CAP ER PO SCH (12:47)
[2017-11-03] MEDS: CLOPIDOGREL 75 MG TAB PO SCH (12:47)
[2017-11-03] MEDS: metroNIDAZOLE 500 MG INJ 100 ML IV SCH ×2 (12:50→20:50)
--- NOTE | 2017-11-03 12:50 | HHI.HP ---
[facility]Staff Admission Diagnosis acute diarrheal ilness; sepsis; ileus Diagnoses: Chief Complaint: vomiting/diarrhea Travel History International Travel<30 Days: No Contact w/Intl Traveler <30 Da: No Traveled to Known Affected Are: No History of Present Illness 83-year-old white female with a history neuropathy, COPD, hypertension who presented to the emergency room with complaints of vomiting and diarrhea From [facility]. Her daughter does provide some history reporting seen her today when she would was not hungry at lunch, very unusual behavior. The patient arrives here by EMS and upon arrival had several episodes of diarrhea in bed associated with vomiting. She denies abdominal pain. She denies chest pain shortness of breath. EMS reports a temperature 100.2 coming over as well as a blood pressure of 100 and a pulse of about 100. C diff is negative Review of Systems Except as stated in HPI: all other systems reviewed are Neg Past Family Social History Past Medical History History of TIA in 2007 Chronic anemia Hypothyroidism Osteoarthritis Left breast cancer COPD GERD Hypertension Right leg ulcer Neuropathy Shingles Past Surgical History Left mastectomy Vein stripping Colectomy next bilateral cataract surgery Teeth extraction Reported Medications Reported Meds & Active Scripts Active Reported Probiotic (Lactobacillus Acidophilus) 10 Billion Cell Cap 1 Cap PO DIRECTED Levothyroxine (Levothyroxine Sodium) 88 Mcg Tab 88 Mcg PO DAILY Lasix (Furosemide) 40 Mg Tab 40 Mg PO DAILY Escitalopram (Escitalopram Oxalate) 20 Mg Tab 20 Mg PO DAILY Calcium 600+D 200 (Calcium Carbonate-Vitamin D) 600-200 Mg-Unit Tab 1 Tab PO DAILY Diltiazem (Diltiazem HCl) 120 Mg Tab 120 Mg PO DAILY Pravastatin 20 Mg Tab 20 Mg PO HS Spiriva Handihaler (Tiotropium Inh) 18 Mcg Cap 18 Mcg INH DAILY 1 capsule = 18 mcg Ventolin Hfa 18 GM Inh (Albuterol Sulfate) 90 Mcg/Act Aer 1 Puff INH QID PRN Aspirin Childrens (Aspirin) 81 Mg Chew 81 Mg CHEW DAILY Loperamide (Loperamide HCl) 2 Mg Cap 2 Mg PO BID PRN One capsule after each loose stool. Not to exceed 8 capsules per day. 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 Family History Mother of brain hemorrhage Social History Occasional alcohol use, does not smoke cigarettes quit when she was 50 years old , no illicit drug use Physical Exam Vital Signs Vital Signs Date Time Temp Pulse Resp B/P (MAP) Pulse Ox O2 Delivery O2 Flow Rate FiO2 11/03/17 12:00 97.6 87 20 162/98 (119) 92 11/03/17 10:00 98.4 89 18 155/80 (105) 92 11/03/17 09:50 11/03/17 08:00 89 16 131/77 (95) 96 11/03/17 06:50 85 12 146/78 (100) 96 11/03/17 06:02 90 18 150/80 (103) 95 11/03/17 04:03 92 18 146/78 (100) 95 11/03/17 02:05 93 18 134/83 (100) 96 Nasal Cannula 2.00 11/03/17 00:01 93 18 174/90 (118) 96 11/02/17 22:37 101 18 161/89 (113) 96 11/02/17 20:53 101 18 165/78 (107) 93 11/02/17 19:30 101 18 181/83 (115) 93 Nasal Cannula 2.00 11/02/17 18:15 100.1 105 16 183/99 (127) 94 Nasal Cannula 2.00 11/02/17 17:20 91 Room Air 11/02/17 17:20 91 Room Air 11/02/17 17:14 100.2 102 18 155/104 (121) 91 Room Air Physical Exam GENERAL: This is a well-nourished, well-developed patient, in no apparent distress. SKIN: No rashes, ecchymoses or lesions. Cool and dry. HEAD: Atraumatic. Normocephalic. No temporal or scalp tenderness. EYES: Pupils equal round and reactive. Extraocular motions intact. No scleral icterus. No injection or drainage. ENT: Nose without bleeding, purulent drainage or septal hematoma. Throat without erythema, tonsillar hypertrophy or exudate. Uvula midline. Airway patent. NECK: Trachea midline. No JVD or lymphadenopathy. Supple, nontender, no meningeal signs. CARDIOVASCULAR: Regular rate and rhythm without murmurs, gallops, or rubs. RESPIRATORY: Clear to auscultation. Breath sounds equal bilaterally. No wheezes , rales, or rhonchi. GASTROINTESTINAL: Abdomen soft, non-tender, nondistended. No hepato-splenomegaly , or palpable masses. No guarding. MUSCULOSKELETAL: Extremities without clubbing, cyanosis, or edema. No joint tenderness, effusion, or edema noted. No calf tenderness. Negative Homans sign bilaterally. NEUROLOGICAL: Awake and alert. Cranial nerves II through XII intact. Motor and sensory grossly within normal limits. Five out of 5 muscle strength in all muscle groups. Normal speech. Laboratory Laboratory Tests Test 11/02/17 17:35 11/02/17 18:23 11/02/17 22:20 11/03/17 05:50 White Blood Count 14.0 7.7 Red Blood Count 4.35 3.96 Hemoglobin 13.4 12.0 Hematocrit 40.8 37.4 Mean Corpuscular Volume 94.0 94.5 Mean Corpuscular Hemoglobin 30.8 30.3 Mean Corpuscular Hemoglobin Concent 32.8 32.0 Red Cell Distribution Width 14.1 13.6 Platelet Count 366 282 Mean Platelet Volume 9.0 8.8 Neutrophils (%) (Auto) 83.7 84.5 Lymphocytes (%) (Auto) 4.7 6.3 Monocytes (%) (Auto) 5.2 7.9 Eosinophils (%) (Auto) 3.0 0.8 Basophils (%) (Auto) 3.4 0.5 Neutrophils # (Auto) 11.7 6.5 Lymphocytes # (Auto) 0.7 0.5 Monocytes # (Auto) 0.7 0.6 Eosinophils # (Auto) 0.4 0.1 Basophils # (Auto) 0.5 0.0 CBC Comment AUTO DIFF DIFF FINAL Differential Comment AUTO DIFF CONFIRMED Prothrombin Time 10.5 Prothromb Time International Ratio 1.0 Activated Partial Thromboplast Time 25.9 Blood Urea Nitrogen 19 17 Creatinine 0.78 0.77 Random Glucose 110 112 Total Protein 7.7 Albumin 3.7 Calcium Level 9.0 7.9 Magnesium Level 1.9 Alkaline Phosphatase 152 Aspartate Amino Transf (AST/SGOT) 14 Alanine Aminotransferase (ALT/SGPT) 13 Total Bilirubin 0.6 Sodium Level 139 143 Potassium Level 3.7 3.5 Chloride Level 106 109 Carbon Dioxide Level 25.2 27.3 Anion Gap 8 7 Estimat Glomerular Filtration Rate 70 71 Lactic Acid Level 1.4 Total Creatine Kinase 38 Troponin I LESS THAN 0.02 Lipase 139 Stool C. difficile Toxin (PCR) NEGATIVE Stl C. difficile Toxin Epiderm 027 PRESUMPTIVE NEGATIVE Urine Color YELLOW Urine Turbidity CLEAR Urine pH 5.0 Urine Specific [place] 1.010 Urine Protein NEG Urine Glucose (UA) NEG Urine Ketones NEG Urine Occult Blood NEG Urine Nitrite NEG Urine Bilirubin NEG Urine Urobilinogen 0.2 Urine Leukocyte Esterase NEG Urine Squamous Epithelial Cells 0-5 Microscopic Urinalysis Comment CATH-CULT NOT IND Date/Time Source Procedure Growth Status 11/02/17 17:35 Blood Peripheral Aerobic Blood Culture - Preliminary NO GROWTH IN 1 DAY Resulted 11/02/17 17:35 Blood Peripheral Anaerobic Blood Culture - Preliminary NO GROWTH IN 1 DAY Resulted 11/02/17 18:23 Nasal Aspirate Influenza Types A,B Antigen (ELIAS) - Final NEGATIVE FOR FLU A AND B ANTIGEN.... Complete Result Diagram: 11/03/17 0550 11/03/17 0550 Imaging Last Impressions Chest X-Ray 11/02/171713 Signed Impressions: Service Date/Time: Thursday, November 02, 2017 17:56 - CONCLUSION: 1. Minimal basal atelectasis or scarring. No consolidation or effusion. Newton Junior MD Abdomen/Pelvis CT 11/02/171713 Signed Impressions: Service Date/Time: Thursday, November 02, 2017 19:28 - CONCLUSION: 1. Mild ileus. Small fat containing ventral hernia. Small hiatal hernia. Basal atelectasis in the lungs. No free fluid or free air. Mildly enlarged inguinal lymph nodes bilaterally. Newton Junior MD Caprini VTE Risk Assessment Caprini VTE Risk Assessment: Mod/High Risk (score >= 2) Caprini Risk Assessment Model Point Value = 1 Point Value = 2 Point Value = 3 Point Value = 5 Age 41-60 Minor surgery BMI > 25 kg/m2 Swollen legs Varicose veins or History of unexplained or recurrent spontaneous Oral contraceptives or hormone replacement Sepsis (< 1 month) Serious lung disease, including pneumonia (< 1 month) Abnormal pulmonary function Acute myocardial infarction Congestive heart failure (< 1 month) History of inflammatory bowel disease Medical patient at bed rest Age 61-74 Arthroscopic surgery Major open surgery (> 45 min) Laparoscopic surgery (> 45 min) Malignancy Confined to bed (> 72 hours) Immobilizing plaster cast Central venous access Age >= 75 History of VTE Family history of VTE Factor V Leiden Prothrombin [id number] Lupus anticoagulant Anticardiolipin antibodies Elevated serum homocysteine Heparin-induced thrombocytopenia Other congenital or acquired thrombophilia Stroke (< 1 month) Elective arthroplasty Hip, pelvis, or leg fracture Acute spinal cord injury (< 1 month) Prophylaxis Regimen Total Risk Factor Score Risk Level Prophylaxis Regimen 0-1 Low Early ambulation 2 Moderate Order ONE of the following: *Sequential Compression Device (SCD) *Heparin 5000 units SQ BID 3-4 Higher Order ONE of the following medications: *Heparin 5000 units SQ TID *Enoxaparin/Lovenox 40 mg SQ daily (WT < 150 kg, CrCl > 30 mL/min) *Enoxaparin/Lovenox 30 mg SQ daily (WT < 150 kg, CrCl > 10-29 mL/min) *Enoxaparin/Lovenox 30 mg SQ BID (WT < 150 kg, CrCl > 30 mL/min) AND/OR *Sequential Compression Device (SCD) 5 or more Highest Order ONE of the following medications: *Heparin 5000 units SQ TID (Preferred with Epidurals) *Enoxaparin/Lovenox 40 mg SQ daily (WT < 150 kg, CrCl > 30 mL/min) *Enoxaparin/Lovenox 30 mg SQ daily (WT < 150 kg, CrCl > 10-29 mL/min) *Enoxaparin/Lovenox 30 mg SQ BID (WT < 150 kg, CrCl > 30 mL/min) AND *Sequential Compression Device (SCD) Assessment and Plan Assessment and Plan 87 yo F with Gastroenteritis Mild Ileus per CT imaging Sepsis on admission ( leukocytosis, tachycardia, source GI patient with vomiting /diarrhea - GE) Patient came from [facility] patient and family says there is endemic diarrhea/ vomiting at the [facility] and is locked down. C diff here is negative CT A/P reviewed patient with mild ileus , ventral hernia, small hiatal hernia. Started on IV antibiotics flagyl and zosyn IV .Monitor C diff is negative Check stool studies , stool WBC, enteric path, giardia etc IVF Antiemetics Patient is not nauseated anymore and is able to eat and keep down food however still with profuse diarrhea. H/o CVA (cerebral vascular accident) continue home meds Hypertension, benign Continue home antihypertensives COPD (chronic obstructive pulmonary disease) Bronchodilators as needed. Hypothyroidism Resume Synthroid and check TSH level. Impingement syndrome of both shoulders Followup with orthopedic surgeon as outpatient. DVT prophylaxis scd/teds/Lovenox. Discussed Condition With pt, nurse, family Physician Certification 2 Midnight Certification Type: Admission for Inpatient Services Order for Inpatient Services The services are ordered in accordance with Medicare regulations or non- Medicare payer requirements, as applicable. In the case of services not specified as inpatient-only, they are appropriately provided as inpatient services in accordance with the 2-midnight benchmark. Estimated LOS (days): 3 days is the estimated time the patient will need to remain in the hospital, assuming treatment plan goals are met and no additional complications. Post-Hospital Plan: Home Darlene Tapia MD Nov 03, 2017 12:50
[2017-11-03] MEDS: TIOTROPIUM BROMIDE 18 MCG INH INH SCH (13:00)
[2017-11-03] MEDS: PIPERACIL-TAZO 4.5 GM PREMIX 100 ML IV SCH ×2 (15:43→22:05)
[2017-11-03] MEDS: PRAVASTATIN SOD 20 MG TAB PO SCH (20:50)
[2017-11-03] MEDS: METHOCARBAMOL 500 MG TAB PO SCH (20:50)
[2017-11-03] MEDS: LACTOBACILLUS ACIDOPHILUS TAB PO SCH (20:50)
[2017-11-04] VITALS (8 sets, daily range): BP systolic 128–188; BP diastolic 60–84; PULSE 63–82; RESP 17–20; TEMP 97.5–98.8; O2SAT 92–96
[2017-11-04] MEDS: LEVOTHYROXINE SODIUM 88 MCG TAB PO SCH (05:23)
[2017-11-04] MEDS: metroNIDAZOLE 500 MG INJ 100 ML IV SCH ×3 (05:23→20:00)
[2017-11-04] MEDS: PIPERACIL-TAZO 4.5 GM PREMIX 100 ML IV SCH ×3 (06:27→22:00)
--- NOTE | 2017-11-04 07:42 | HHI.PR ---
Subjective Remarks Patient feels improving today. No nausea or vomiting she is able to eat food and keep down however she has decreased appetite. Still with significant diarrhea had 10 bowel movements since yesterday no blood in it. Fever or chills. Some abdominal cramps. Objective Vitals Vital Signs Date Time Temp Pulse Resp B/P (MAP) Pulse Ox O2 Delivery O2 Flow Rate FiO2 11/04/17 04:00 97.5 82 18 148/79 (102) 92 11/04/17 00:00 97.7 80 17 145/76 (99) 93 11/03/17 20:00 74 11/03/17 20:00 97.3 77 16 159/70 (99) 92 11/03/17 16:00 98.3 83 18 137/89 (105) 92 11/03/17 12:00 97.6 87 20 162/98 (119) 92 11/03/17 10:00 98.4 89 18 155/80 (105) 92 11/03/17 09:50 11/03/17 08:00 89 16 131/77 (95) 96 I/O 11/03/17 11/03/17 11/03/17 11/04/17 11/04/17 11/04/17 07:00 15:00 23:00 07:00 15:00 23:00 Intake Total 2000 ml 240 ml 480 ml Balance 2000 ml 240 ml 480 ml Intake Oral 240 ml 480 ml IV Total 2000 ml # Voids 7 1 # Bowel Movements 7 1 2 Result Diagram: 11/03/17 0550 11/03/17 0550 Imaging Last Impressions Chest X-Ray 11/02/171713 Signed Impressions: Service Date/Time: Thursday, November 02, 2017 17:56 - CONCLUSION: 1. Minimal basal atelectasis or scarring. No consolidation or effusion. Newton Junior MD Abdomen/Pelvis CT 11/02/171713 Signed Impressions: Service Date/Time: Thursday, November 02, 2017 19:28 - CONCLUSION: 1. Mild ileus. Small fat containing ventral hernia. Small hiatal hernia. Basal atelectasis in the lungs. No free fluid or free air. Mildly enlarged inguinal lymph nodes bilaterally. Newton Junior MD Objective Remarks GENERAL: This is a well-nourished, well-developed patient, in no apparent distress. CARDIOVASCULAR: Regular rate and rhythm without murmurs, gallops, or rubs. RESPIRATORY: Clear to auscultation. Breath sounds equal bilaterally. No wheezes , rales, or rhonchi. GASTROINTESTINAL: Abdomen soft, non-tender, nondistended. No hepato-splenomegaly , or palpable masses. No guarding. MUSCULOSKELETAL: Extremities without clubbing, cyanosis, or edema. No joint tenderness, effusion, or edema noted. No calf tenderness. Negative Homans sign bilaterally. NEUROLOGICAL: Awake and alert. Cranial nerves II through XII intact. Motor and sensory grossly within normal limits. Five out of 5 muscle strength in all muscle groups. Normal speech. A/P Assessment and Plan 87 yo F with Gastroenteritis Mild Ileus per CT imaging Sepsis on admission ( leukocytosis, tachycardia, source GI patient with vomiting /diarrhea - GE) Patient came from [facility] patient and family says there is endemic diarrhea/ vomiting at the [facility] and is locked down. C diff here is negative CT A/P reviewed patient with mild ileus , ventral hernia, small hiatal hernia. Started on IV antibiotics flagyl and zosyn IV .Monitor C diff is negative Check stool studies , stool WBC, enteric path, giardia etc stool studies are still pending IVF Antiemetics Patient is not nauseated anymore and is able to eat and keep down food however still with diarrhea and decreased appetite. H/o CVA (cerebral vascular accident) continue home meds Hypertension, benign Continue home antihypertensives COPD (chronic obstructive pulmonary disease) Bronchodilators as needed. Hypothyroidism Resume Synthroid and check TSH level. Impingement syndrome of both shoulders Followup with orthopedic surgeon as outpatient. DVT prophylaxis scd/teds/Lovenox. Discussed Condition With pt, nurse Discharge plan pending improvement Darlene Tapia MD Nov 04, 2017 07:42
[2017-11-04] MEDS: TIOTROPIUM BROMIDE 18 MCG INH INH SCH (07:54)
[2017-11-04] MEDS: LACTOBACILLUS ACIDOPHILUS TAB PO SCH ×4 (07:54→17:52)
[2017-11-04] MEDS: FUROSEMIDE 40 MG TAB PO SCH (07:55)
[2017-11-04] MEDS: DILTIAZEM-CD 120 MG CAP ER PO SCH (07:55)
[2017-11-04] MEDS: ESCITALOPRAM OXALATE 20 MG TAB PO SCH (07:55)
[2017-11-04] MEDS: LISINOPRIL 5 MG TAB PO SCH (07:55)
[2017-11-04] MEDS: CLOPIDOGREL 75 MG TAB PO SCH (07:55)
[2017-11-04] MEDS: ASPIRIN 81 MG CHEW TAB CHEW SCH (07:55)
[2017-11-04] MEDS: SODIUM CHLORIDE 0.9% FLUSH 10 ML FLUSH IV FLUSH SCH ×2 (07:56→21:00)
[2017-11-04] MEDS: CALCIUM/VITAMIN D 250 MG/125 U TAB PO SCH (07:56)
[2017-11-04] MEDS ORDERED: PNEUMOCOCCAL POLYVALENT INJ 25 MCG/0.5 ML SYR IM ONE (10:00)
[2017-11-04] MEDS: PRAVASTATIN SOD 20 MG TAB PO SCH (21:00)
[2017-11-04] MEDS: METHOCARBAMOL 500 MG TAB PO SCH (21:00)
[2017-11-05] VITALS (7 sets, daily range): BP systolic 130–176; BP diastolic 70–98; PULSE 63–78; RESP 18; TEMP 97–98.7; O2SAT 91–95
[2017-11-05] MEDS: metroNIDAZOLE 500 MG INJ 100 ML IV SCH ×3 (04:00→19:53)
[2017-11-05] MEDS: LEVOTHYROXINE SODIUM 88 MCG TAB PO SCH (06:00)
[2017-11-05] MEDS: PIPERACIL-TAZO 4.5 GM PREMIX 100 ML IV SCH ×3 (06:00→22:50)
--- NOTE | 2017-11-05 07:46 | HHI.PR ---
Subjective Remarks Still with diarrhea she had overnight. Multiple bowel movements yesterday and times. Says she feels weak. Able to eat but not much no more nausea or vomiting. Has decreased appetite. No fever or chills. Still with some abdominal cramps. No chest pain or shortness of breath. No tachycardia. Objective Vitals Vital Signs Date Time Temp Pulse Resp B/P (MAP) Pulse Ox O2 Delivery O2 Flow Rate FiO2 11/05/17 04:00 97.6 68 18 166/77 (106) 92 11/05/17 00:00 97.0 65 18 154/74 (100) 93 11/04/17 20:00 97.5 67 18 188/84 (118) 93 11/04/17 16:00 97.6 73 20 156/70 (98) 93 11/04/17 15:41 63 11/04/17 12:00 97.8 68 20 128/60 (82) 93 11/04/17 08:58 92 21 11/04/17 08:00 98.8 79 20 168/79 (108) 96 I/O 11/04/17 11/04/17 11/04/17 11/05/17 11/05/17 11/05/17 07:00 15:00 23:00 07:00 15:00 23:00 Intake Total 200 ml 120 ml Balance 200 ml 120 ml Intake Oral 120 ml IV Total 200 ml # Voids 3 1 # Bowel Movements 2 2 1 Result Diagram: 11/03/17 0550 11/03/17 0550 Imaging Last Impressions Chest X-Ray 11/02/171713 Signed Impressions: Service Date/Time: Thursday, November 02, 2017 17:56 - CONCLUSION: 1. Minimal basal atelectasis or scarring. No consolidation or effusion. Newton Junior MD Abdomen/Pelvis CT 11/02/171713 Signed Impressions: Service Date/Time: Thursday, November 02, 2017 19:28 - CONCLUSION: 1. Mild ileus. Small fat containing ventral hernia. Small hiatal hernia. Basal atelectasis in the lungs. No free fluid or free air. Mildly enlarged inguinal lymph nodes bilaterally. Newton Junior MD Objective Remarks GENERAL: This is a well-nourished, well-developed patient, in no apparent distress. CARDIOVASCULAR: Regular rate and rhythm without murmurs, gallops, or rubs. RESPIRATORY: Clear to auscultation. Breath sounds equal bilaterally. No wheezes , rales, or rhonchi. GASTROINTESTINAL: Abdomen soft, non-tender, nondistended. No hepato-splenomegaly , or palpable masses. No guarding. MUSCULOSKELETAL: Extremities without clubbing, cyanosis, or edema. No joint tenderness, effusion, or edema noted. No calf tenderness. Negative Homans sign bilaterally. NEUROLOGICAL: Awake and alert. Cranial nerves II through XII intact. Motor and sensory grossly within normal limits. Five out of 5 muscle strength in all muscle groups. Normal speech. A/P Assessment and Plan 87 yo F with Gastroenteritis. Norovirus positive. N/V resolved, still with diarrhea Mild Ileus per CT imaging Sepsis on admission ( leukocytosis, tachycardia, source GI patient with vomiting /diarrhea - GE) Patient came from [facility] patient and family says there is endemic diarrhea/ vomiting at the [facility] and is locked down. C diff here is negative CT A/P reviewed patient with mild ileus , ventral hernia, small hiatal hernia. Started on IV antibiotics flagyl and zosyn IV .Monitor C diff is negative Check stool studies , stool WBC, enteric path, giardia etc stool studies are still pending. Norovirus positive IVF Antiemetics Patient is not nauseated anymore and is able to eat and keep down food however still with diarrhea and decreased appetite. H/o CVA (cerebral vascular accident) continue home meds Hypertension, benign Continue home antihypertensives COPD (chronic obstructive pulmonary disease) Bronchodilators as needed. Hypothyroidism Resume Synthroid and check TSH level. Impingement syndrome of both shoulders Followup with orthopedic surgeon as outpatient. DVT prophylaxis scd/teds/Lovenox. Discussed Condition With pt, nurse Discharge plan pending improvement. Patient still with diarrhea, feels weak now much p.o. intake. Darlene Tapia MD Nov 05, 2017 07:46
[2017-11-05] MEDS: CLOPIDOGREL 75 MG TAB PO SCH (08:30)
[2017-11-05] MEDS: ESCITALOPRAM OXALATE 20 MG TAB PO SCH (08:30)
[2017-11-05] MEDS: FUROSEMIDE 40 MG TAB PO SCH (08:30)
[2017-11-05] MEDS: DILTIAZEM-CD 120 MG CAP ER PO SCH (08:30)
[2017-11-05] MEDS: LISINOPRIL 5 MG TAB PO SCH (08:30)
[2017-11-05] MEDS: CALCIUM/VITAMIN D 250 MG/125 U TAB PO SCH (08:30)
[2017-11-05] MEDS: TIOTROPIUM BROMIDE 18 MCG INH INH SCH (08:31)
[2017-11-05] MEDS: ASPIRIN 81 MG CHEW TAB CHEW SCH (08:31)
[2017-11-05] MEDS: LACTOBACILLUS ACIDOPHILUS TAB PO SCH ×3 (08:32→17:55)
[2017-11-05] MEDS: MORPHINE SULFATE 2 MG/ML INJ IV PUSH PRN ×2 (08:40→14:17)
[2017-11-05] MEDS: SODIUM CHLORIDE 0.9% FLUSH 10 ML FLUSH IV FLUSH SCH ×2 (09:00→19:54)
[2017-11-05] MEDS: METHOCARBAMOL 500 MG TAB PO SCH (19:53)
[2017-11-05] MEDS: PRAVASTATIN SOD 20 MG TAB PO SCH (19:54)
[2017-11-06] VITALS (7 sets, daily range): BP systolic 108–155; BP diastolic 59–84; PULSE 67–75; RESP 16–18; TEMP 98.2–99.5; O2SAT 90–94
[2017-11-06] MEDS: metroNIDAZOLE 500 MG INJ 100 ML IV SCH ×3 (05:26→22:24)
[2017-11-06] MEDS: PIPERACIL-TAZO 4.5 GM PREMIX 100 ML IV SCH ×3 (05:27→22:25)
[2017-11-06] MEDS: LEVOTHYROXINE SODIUM 88 MCG TAB PO SCH (05:27)
[2017-11-06 07:33] LABS: AUTOMATED NEUTROPHIL # 7.8 TH/MM3 (1.8-7.7); BASOPHIL # 0.1 TH/MM3 (0-0.2); BASOPHIL % 0.5 % (0.0-2.0); EOSINOPHIL # 0.6 TH/MM3 (0-0.4); EOSINOPHIL % 5.5 % (0.0-4.0); HEMATOCRIT 37.8 % (35.0-46.0); HEMOGLOBIN 12.3 GM/DL (11.6-15.3); LYMPH % 13.4 % (9.0-44.0); LYMPHOCYTE # 1.5 TH/MM3 (1.0-4.8); MEAN CELL VOLUME 93.9 FL (80.0-100.0); MEAN CORPUSCULAR HEMOGLOBIN 30.5 PG (27.0-34.0); MEAN CORPUSCULAR HGB CONC 32.5 % (32.0-36.0); MEAN PLATELET VOLUME 8.9 FL (7.0-11.0); MONO % 11.7 % (0.0-8.0); MONOCYTE # 1.3 TH/MM3 (0-0.9); NEUT % 68.9 % (16.0-70.0); PLATELET COUNT 242 TH/MM3 (150-450); RED BLOOD COUNT 4.02 MIL/MM3 (4.00-5.30); RED CELL DISTRIBUTION WIDTH 13.2 % (11.6-17.2); WHITE BLOOD COUNT 11.3 TH/MM3 (4.0-11.0)
[2017-11-06 07:57] LABS: CREATININE 0.68 MG/DL (0.50-1.00)
[2017-11-06] MEDS: DILTIAZEM-CD 120 MG CAP ER PO SCH (08:36)
[2017-11-06] MEDS: LISINOPRIL 5 MG TAB PO SCH (08:37)
[2017-11-06] MEDS: CLOPIDOGREL 75 MG TAB PO SCH (08:37)
[2017-11-06] MEDS: FUROSEMIDE 40 MG TAB PO SCH (08:37)
[2017-11-06] MEDS: ASPIRIN 81 MG CHEW TAB CHEW SCH (08:37)
[2017-11-06] MEDS: LACTOBACILLUS ACIDOPHILUS TAB PO SCH ×3 (08:37→17:40)
[2017-11-06] MEDS: CALCIUM/VITAMIN D 250 MG/125 U TAB PO SCH (08:37)
[2017-11-06] MEDS: TIOTROPIUM BROMIDE 18 MCG INH INH SCH (08:38)
[2017-11-06] MEDS: ESCITALOPRAM OXALATE 20 MG TAB PO SCH (08:38)
[2017-11-06] MEDS: SODIUM CHLORIDE 0.9% FLUSH 10 ML FLUSH IV FLUSH SCH ×2 (08:43→22:24)
--- NOTE | 2017-11-06 09:01 | HHI.PR ---
Subjective Remarks Naomi at 2.4 . replace Feels very weak. Not able to eat much since she does not have appetite. Potassium is noted very low today. Replace. No nausea or vomiting. Still with diarrhea. No fever or chills. Still with some abdominal cramps. Denies chest pain or shortness of breath. Objective Vitals Vital Signs Date Time Temp Pulse Resp B/P (MAP) Pulse Ox O2 Delivery O2 Flow Rate FiO2 11/06/17 08:48 94 Nasal Cannula 2.00 11/06/17 08:00 99.5 69 16 155/84 (107) 90 11/06/17 04:00 98.2 73 18 148/72 (97) 93 11/06/17 00:00 98.5 70 18 111/59 (76) 92 11/05/17 20:10 68 11/05/17 20:00 98.7 67 18 130/70 (90) 93 11/05/17 16:00 97.9 63 18 148/81 (103) 95 11/05/17 14:22 20 11/05/17 12:00 98.1 64 18 160/92 (114) 93 I/O 11/05/17 11/05/17 11/05/17 11/06/17 11/06/17 11/06/17 07:00 15:00 23:00 07:00 15:00 23:00 Intake Total 120 ml 600 ml 100 ml 160 ml Output Total 200 ml Balance 120 ml 600 ml 100 ml -40 ml Intake Oral 120 ml 600 ml 60 ml IV Total 100 ml 100 ml Output Urine Total 200 ml # Voids 1 3 # Bowel Movements 1 2 Result Diagram: 11/06/17 0650 11/06/17 0650 Imaging Last Impressions Chest X-Ray 11/02/171713 Signed Impressions: Service Date/Time: Thursday, November 02, 2017 17:56 - CONCLUSION: 1. Minimal basal atelectasis or scarring. No consolidation or effusion. Newton Junior MD Abdomen/Pelvis CT 11/02/171713 Signed Impressions: Service Date/Time: Thursday, November 02, 2017 19:28 - CONCLUSION: 1. Mild ileus. Small fat containing ventral hernia. Small hiatal hernia. Basal atelectasis in the lungs. No free fluid or free air. Mildly enlarged inguinal lymph nodes bilaterally. Newton Junior MD Objective Remarks GENERAL: This is a well-nourished, well-developed patient, in no apparent distress. CARDIOVASCULAR: Regular rate and rhythm without murmurs, gallops, or rubs. RESPIRATORY: Clear to auscultation. Breath sounds equal bilaterally. No wheezes , rales, or rhonchi. GASTROINTESTINAL: Abdomen soft, non-tender, nondistended. No hepato-splenomegaly , or palpable masses. No guarding. MUSCULOSKELETAL: Extremities without clubbing, cyanosis, or edema. No joint tenderness, effusion, or edema noted. No calf tenderness. Negative Homans sign bilaterally. NEUROLOGICAL: Awake and alert. Cranial nerves II through XII intact. Motor and sensory grossly within normal limits. Five out of 5 muscle strength in all muscle groups. Normal speech. A/P Assessment and Plan 87 yo F with Gastroenteritis. Norovirus positive. N/V resolved, still with diarrhea Hypokalemia at 2.4 (on 11/06/17). Replace with IV KCL and PO. Check Mag and replace. Monitor lytes and replace as indicated. Mild Ileus per CT imaging Sepsis on admission ( leukocytosis, tachycardia, source GI patient with vomiting /diarrhea - GE) Patient came from [facility] patient and family says there is endemic diarrhea/ vomiting at the [facility] and is locked down. C diff here is negative CT A/P reviewed patient with mild ileus , ventral hernia, small hiatal hernia. Started on IV antibiotics flagyl and zosyn IV .Monitor C diff is negative Check stool studies , stool WBC, enteric path, giardia etc stool studies are still pending. Norovirus positive IVF Antiemetics Patient is not nauseated anymore and is able to eat and keep down food however still with diarrhea and decreased appetite. H/o CVA (cerebral vascular accident) continue home meds Hypertension, benign Continue home antihypertensives COPD (chronic obstructive pulmonary disease) Bronchodilators as needed. Hypothyroidism Resume Synthroid and check TSH level. Impingement syndrome of both shoulders Followup with orthopedic surgeon as outpatient. DVT prophylaxis scd/teds/Lovenox. Discussed Condition With pt, nurse Discharge plan pending improvement. Patient still with diarrhea, feels weak now much p.o. intake, K is low Darlene Tapia MD Nov 06, 2017 09:01
[2017-11-06] MEDS ORDERED: MAGNESIUM OXIDE 400 MG TAB PO ONE (09:15)
[2017-11-06] MEDS ORDERED: POTASSIUM CHLORIDE 10 MEQ CONTROLLED RELEASE TAB PO ONE (09:15)
[2017-11-06] MEDS: POTASSIUM CHLOR 20 MEQ PREMIX 100 ML IV SCH ×2 (10:16→12:24)
[2017-11-06] MEDS: MORPHINE SULFATE 2 MG/ML INJ IV PUSH PRN (13:56)
[2017-11-06] MEDS: METHOCARBAMOL 500 MG TAB PO SCH (22:24)
[2017-11-06] MEDS: PRAVASTATIN SOD 20 MG TAB PO SCH (22:24)
[2017-11-07] VITALS (7 sets, daily range): BP systolic 106–164; BP diastolic 56–96; PULSE 72–81; RESP 16–22; TEMP 98–99.6; O2SAT 93–98
[2017-11-07 06:50] LABS: AUTOMATED NEUTROPHIL # 9.7 TH/MM3 (1.8-7.7); BASOPHIL % 0.2 % (0.0-2.0); EOSINOPHIL # 0.5 TH/MM3 (0-0.4); EOSINOPHIL % 3.9 % (0.0-4.0); HEMATOCRIT 38.6 % (35.0-46.0); HEMOGLOBIN 12.8 GM/DL (11.6-15.3); LYMPH % 13.4 % (9.0-44.0); LYMPHOCYTE # 1.8 TH/MM3 (1.0-4.8); MEAN CELL VOLUME 93.3 FL (80.0-100.0); MEAN CORPUSCULAR HEMOGLOBIN 30.9 PG (27.0-34.0); MEAN CORPUSCULAR HGB CONC 33.1 % (32.0-36.0); MEAN PLATELET VOLUME 8.8 FL (7.0-11.0); MONO % 12.5 % (0.0-8.0); MONOCYTE # 1.7 TH/MM3 (0-0.9); PLATELET COUNT 282 TH/MM3 (150-450); RED BLOOD COUNT 4.13 MIL/MM3 (4.00-5.30); RED CELL DISTRIBUTION WIDTH 13.4 % (11.6-17.2); WHITE BLOOD COUNT 13.7 TH/MM3 (4.0-11.0)
[2017-11-07] MEDS: PIPERACIL-TAZO 4.5 GM PREMIX 100 ML IV SCH (07:00)
[2017-11-07] MEDS: metroNIDAZOLE 500 MG INJ 100 ML IV SCH ×2 (07:00→12:08)
[2017-11-07] MEDS: LEVOTHYROXINE SODIUM 88 MCG TAB PO SCH (07:00)
[2017-11-07 07:04] LABS: CALCIUM 8.5 MG/DL (8.5-10.1); CREATININE 0.59 MG/DL (0.50-1.00); MAGNESIUM 1.6 MG/DL (1.5-2.5)
[2017-11-07] MEDS ORDERED: POTASSIUM CHLORIDE 10 MEQ CONTROLLED RELEASE TAB PO ONE ×3 (08:45→21:00)
[2017-11-07] MEDS: SODIUM CHLORIDE 0.9% FLUSH 10 ML FLUSH IV FLUSH SCH ×2 (09:30→22:14)
[2017-11-07] MEDS: ASPIRIN 81 MG CHEW TAB CHEW SCH (09:31)
[2017-11-07] MEDS: TIOTROPIUM BROMIDE 18 MCG INH INH SCH (09:31)
[2017-11-07] MEDS: LACTOBACILLUS ACIDOPHILUS TAB PO SCH ×3 (09:32→18:00)
[2017-11-07] MEDS: ESCITALOPRAM OXALATE 20 MG TAB PO SCH (09:32)
[2017-11-07] MEDS: LISINOPRIL 5 MG TAB PO SCH (09:33)
[2017-11-07] MEDS: CLOPIDOGREL 75 MG TAB PO SCH (09:33)
[2017-11-07] MEDS: CALCIUM/VITAMIN D 250 MG/125 U TAB PO SCH (09:33)
[2017-11-07] MEDS: MAGNESIUM OXIDE 400 MG TAB PO SCH (09:33)
[2017-11-07] MEDS: DILTIAZEM-CD 120 MG CAP ER PO SCH (12:08)
[2017-11-07] MEDS: FUROSEMIDE 40 MG TAB PO SCH (12:08)
[2017-11-07] MEDS ORDERED: ACETAMINOPHEN/HYDROcodone 325 MG/5 MG TAB PO PRN (13:00)
[2017-11-07] MEDS ORDERED: NS + KCL 20 MEQ INJ 1,000 ML IV SCH (13:30)
--- NOTE | 2017-11-07 13:32 | HHI.PR ---
Subjective Remarks Patient seen and examined today for follow-up on diarrhea illness, nor virus. Patient is doing better. Medical records indicate bowel movements have lessened. However, since patient is unable to return to the [facility] and has been staying here at the hospital she is losing her physical strength. Physical therapy indicates that patient is a strong enough to return to [facility] at this time. Will require rehab placement. Vital signs are stable, patient afebrile Objective Vitals Vital Signs Date Time Temp Pulse Resp B/P (MAP) Pulse Ox O2 Delivery O2 Flow Rate FiO2 11/07/17 12:00 99.0 72 18 138/70 (92) 95 11/07/17 10:00 11/07/17 08:00 98.6 75 16 152/76 (101) 94 11/07/17 04:00 98.5 73 16 135/72 (93) 93 11/07/17 00:00 99.0 76 16 106/56 (73) 94 11/06/17 20:00 95 Nasal Cannula 2.00 11/06/17 20:00 99.5 75 16 146/65 (92) 94 11/06/17 20:00 71 11/06/17 16:00 98.9 67 16 121/68 (85) 94 11/06/17 15:00 70 I/O 11/06/17 11/06/17 11/06/17 11/07/17 11/07/17 11/07/17 06:59 14:59 22:59 06:59 14:59 22:59 Intake Total 160 ml 780 ml 100 ml Output Total 200 ml 900 ml Balance -40 ml -120 ml 100 ml Intake Oral 60 ml 480 ml IV Total 100 ml 300 ml 100 ml Output Urine Total 200 ml 900 ml # Bowel Movements 1 Result Diagram: 11/07/17 0543 11/07/17 1200 Objective Remarks GENERAL: Well-developed, well-nourished, in no acute distress. alert and orientated HEENT: Head is normocephalic without any lesions or masses noted. Facial features are symmetric. EYES: Extraocular muscles are intact. Conjunctivae were clear. NECK: Supple without any masses. Trachea midline no deviation. No JVD, CARDIAC: Regular rhythm, regular rate. S1/S2 are heard. 2/6 ejection murmur, no gallops or rubs. LUNGS: Clear to auscultation bilaterally. No wheeze, rhonchi or rales. No use of accessory muscles on inspiration or expiration. ABDOMEN: Soft, nontender. Nondistended. Bowel sounds heard in all 4 quadrants. No organomegaly or masses. Negative rebound, negative guarding EXTREMITIES: No edema, pulses are equal bilaterally. No cyanosis or clubbing NEUROLOGY: Mood and affect appear appropriate. Cranial nerves II through XII grossly intact. Moving all extremities, speech is clear Urinary Catheter: No Vascular Central Line Catheter: No A/P Assessment and Plan Sepsis, resolved Patient met criteria on admission with leukocytosis, tachycardia, nausea, vomiting, diarrhea Patient was started on empirical antibiotics include Flagyl and Zosyn, will discontinue those at this time Norovirus testing was positive C. difficile, Giardia, cryptosporidium testing was negative Neurovirus infection Nausea, vomiting has improved, patient still with mild diarrhea CT scan did show mild ileus, ventral hernia, small hiatal hernia Continue supportive treatment Continue IV fluid Hypokalemia Continue monitoring place as needed Hypertension, history of CVA, hypothyroidism Home medications have been continued Chronic obstructive pulmonary disease Continue O2 sat mentation maintain O2 sats greater than 92% Albuterol inhaler as needed Physical deconditioning Continue physical therapy during her stay in the hospital Patient is worsening the longer she is in the hospital, secondary to discharge roadblocks back to [facility] Physical therapy recommending rehab facility at this time DVT prevention Subcutaneous Lovenox Sequential compression devices Discharge Planning Discharge planning likely to rehab facility at this time. Patient is physically deconditioning since patient unable to return to the [facility]. Records indicate that the [facility] that the patient came from has endemic diarrhea/vomiting at the [facility] and is on locked down Yoel Thornton Nov 07, 2017 13:32
[2017-11-07] MEDS: METHOCARBAMOL 500 MG TAB PO SCH (22:13)
[2017-11-07] MEDS: PRAVASTATIN SOD 20 MG TAB PO SCH (22:13)
[2017-11-08] VITALS: BP 134/60; PULSE 63; RESP 20; TEMP 97.1; O2SAT 96
[2017-11-08] MEDS: LEVOTHYROXINE SODIUM 88 MCG TAB PO SCH (06:01)
[2017-11-08 07:50] LABS: AUTOMATED NEUTROPHIL # 10.3 TH/MM3 (1.8-7.7); BASOPHIL # 0.1 TH/MM3 (0-0.2); BASOPHIL % 0.7 % (0.0-2.0); EOSINOPHIL # 0.5 TH/MM3 (0-0.4); EOSINOPHIL % 3.2 % (0.0-4.0); HEMATOCRIT 37.1 % (35.0-46.0); HEMOGLOBIN 12.3 GM/DL (11.6-15.3); LYMPH % 13.2 % (9.0-44.0); LYMPHOCYTE # 1.9 TH/MM3 (1.0-4.8); MEAN CELL VOLUME 93.1 FL (80.0-100.0); MEAN CORPUSCULAR HEMOGLOBIN 30.9 PG (27.0-34.0); MEAN CORPUSCULAR HGB CONC 33.2 % (32.0-36.0); MEAN PLATELET VOLUME 8.7 FL (7.0-11.0); MONO % 11.6 % (0.0-8.0); MONOCYTE # 1.7 TH/MM3 (0-0.9); NEUT % 71.3 % (16.0-70.0); PLATELET COUNT 256 TH/MM3 (150-450); RED BLOOD COUNT 3.99 MIL/MM3 (4.00-5.30); RED CELL DISTRIBUTION WIDTH 13.3 % (11.6-17.2); WHITE BLOOD COUNT 14.5 TH/MM3 (4.0-11.0)
[2017-11-08 08:00] VITALS: BP 142/73; PULSE 80; RESP 16; TEMP 98.3; O2SAT 95
[2017-11-08 08:04] LABS: CHLORIDE 102 MEQ/L (98-107); SODIUM (NA) 138 MEQ/L (136-145)
[2017-11-08 08:11] LABS: CALCIUM 8.3 MG/DL (8.5-10.1)
[2017-11-08 08:12] LABS: ALBUMIN 2.4 GM/DL (3.4-5.0); BLOOD UREA NITROGEN 7 MG/DL (7-18); GLUCOSE,RANDOM 97 MG/DL (74-106); MAGNESIUM 1.6 MG/DL (1.5-2.5)
[2017-11-08 08:15] LABS: ALT (GPT) 7 U/L (10-53); AST (GOT) 11 U/L (15-37); CREATININE 0.48 MG/DL (0.50-1.00); GLOMERULAR FILTRATION RATE 122 ML/MIN (>89)
[2017-11-08 08:17] LABS: TOTAL BILIRUBIN ADULT 0.5 MG/DL (0.2-1.0)
[2017-11-08 08:18] LABS: ALKALINE PHOSPHATASE 97 U/L (45-117)
[2017-11-08] MEDS: SODIUM CHLORIDE 0.9% FLUSH 10 ML FLUSH IV FLUSH SCH (09:00)
--- NOTE | 2017-11-08 09:00 | HHI.DCPOC ---
Discharge Care Plan Diagnosis: (1) Sepsis (2) Acute diarrhea Goals to Promote Your Health * To prevent worsening of your condition and complications * To maintain your health at the optimal level Directions to Meet Your Goals Take your medications as prescribed Follow your dietary instruction Follow activity as directed Keep your appointments as scheduled Take your immunizations and boosters as scheduled If your symptoms worsen call your PCP, if no PCP go to Urgent Care Center or Emergency Room Smoking is Dangerous to Your Health. Avoid second hand smoke Call the 24-hour hour crisis hotline for domestic abuse at Yoel Thornton Nov 08, 2017 09:00
--- NOTE | 2017-11-08 09:13 | HHI.DS ---
Discharge Summary Admission Date Nov 02, 2017 at 20:53 Discharge Date: Nov 08, 2017 Admitting Diagnosis acute diarrheal ilness; sepsis; ileus (1) Norovirus ICD Code: A08.11 - Acute gastroenteropathy due to Williamson agent Diagnosis: Principal (2) Sepsis ICD Code: A41.9 - Sepsis, unspecified organism Diagnosis: Principal Status: Acute (3) Acute diarrhea ICD Code: R19.7 - Diarrhea, unspecified Diagnosis: Principal Status: Acute Procedures None Brief History - From Admission 83-year-old white female with a history neuropathy, COPD, hypertension who presented to the emergency room with complaints of vomiting and diarrhea From [facility]. Her daughter does provide some history reporting seen her today when she would was not hungry at lunch, very unusual behavior. The patient arrives here by EMS and upon arrival had several episodes of diarrhea in bed associated with vomiting. She denies abdominal pain. She denies chest pain shortness of breath. EMS reports a temperature 100.2 coming over as well as a blood pressure of 100 and a pulse of about 100. C diff is negative CBC/BMP: 11/08/17 0731 11/08/17 0731 Significant Findings Laboratory Tests Test 11/06/17 06:50 11/07/17 05:43 11/07/17 05:45 11/07/17 12:00 White Blood Count 11.3 TH/MM3 (4.0-11.0) 13.7 TH/MM3 (4.0-11.0) Monocytes (%) (Auto) 11.7 % (0.0-8.0) 12.5 % (0.0-8.0) Eosinophils (%) (Auto) 5.5 % (0.0-4.0) Neutrophils # (Auto) 7.8 TH/MM3 (1.8-7.7) 9.7 TH/MM3 (1.8-7.7) Monocytes # (Auto) 1.3 TH/MM3 (0-0.9) 1.7 TH/MM3 (0-0.9) Eosinophils # (Auto) 0.6 TH/MM3 (0-0.4) 0.5 TH/MM3 (0-0.4) Calcium Level 8.0 MG/DL (8.5-10.1) Potassium Level 2.4 MEQ/L (3.5-5.1) 2.9 MEQ/L (3.5-5.1) 3.2 MEQ/L (3.5-5.1) Estimat Glomerular Filtration Rate 82 ML/MIN (>89) Blood Urea Nitrogen 5 MG/DL (7-18) Test 11/08/17 07:31 White Blood Count 14.5 TH/MM3 (4.0-11.0) Red Blood Count 3.99 MIL/MM3 (4.00-5.30) Neutrophils (%) (Auto) 71.3 % (16.0-70.0) Monocytes (%) (Auto) 11.6 % (0.0-8.0) Neutrophils # (Auto) 10.3 TH/MM3 (1.8-7.7) Monocytes # (Auto) 1.7 TH/MM3 (0-0.9) Eosinophils # (Auto) 0.5 TH/MM3 (0-0.4) Creatinine 0.48 MG/DL (0.50-1.00) Total Protein 6.0 GM/DL (6.4-8.2) Albumin 2.4 GM/DL (3.4-5.0) Calcium Level 8.3 MG/DL (8.5-10.1) Aspartate Amino Transf (AST/SGOT) 11 U/L (15-37) Alanine Aminotransferase (ALT/SGPT) 7 U/L (10-53) Imaging Last Impressions Chest X-Ray 11/02/171713 Signed Impressions: Service Date/Time: Thursday, November 02, 2017 17:56 - CONCLUSION: 1. Minimal basal atelectasis or scarring. No consolidation or effusion. Newton Junior MD Abdomen/Pelvis CT 11/02/171713 Signed Impressions: Service Date/Time: Thursday, November 02, 2017 19:28 - CONCLUSION: 1. Mild ileus. Small fat containing ventral hernia. Small hiatal hernia. Basal atelectasis in the lungs. No free fluid or free air. Mildly enlarged inguinal lymph nodes bilaterally. Newton Junior MD PE at Discharge GENERAL: Well-developed, well-nourished, in no acute distress. alert and orientated HEENT: Head is normocephalic without any lesions or masses noted. Facial features are symmetric. EYES: Extraocular muscles are intact. Conjunctivae were clear. NECK: Supple without any masses. Trachea midline no deviation. No JVD, CARDIAC: Regular rhythm, regular rate. S1/S2 are heard. 2/6 ejection murmur, no gallops or rubs. LUNGS: Clear to auscultation bilaterally. No wheeze, rhonchi or rales. No use of accessory muscles on inspiration or expiration. ABDOMEN: Soft, nontender. Nondistended. Bowel sounds heard in all 4 quadrants. No organomegaly or masses. Negative rebound, negative guarding EXTREMITIES: No edema, pulses are equal bilaterally. No cyanosis or clubbing NEUROLOGY: Mood and affect appear appropriate. Cranial nerves II through XII grossly intact. Moving all extremities, speech is clear Hospital Course 87-year-old female who presented from local [facility] because of generalized fatigue, nausea, vomiting, lethargy. Patient presented with signs of sepsis with leukocytosis, tachycardia, diarrhea illness. Further studies were performed which did indicate patient had norovirus, patient was empirically started on antibiotics to include Zosyn and Flagyl. Those have subsequently been discontinued due to no bacterial infection. Further studies were performed which C. difficile was negative, Giardia, cryptosporidium testing was negative. Patient was to be discharged back to [facility], however the [facility] was quarantined due to Norovirus and patient was unable to discharge back there. Physical therapy originally evaluated patient indicated that she could return to an [facility] and was functional at that time. However due to patient unable to discharge due to the quarantine at her [facility] she had significant physical deconditioning in which now physical therapy is indicating that she needs to go to a shelter facility for continued care and physical therapy. Patient clinically stable this time. Plan discharge to shelter facility once arrangements made. Pt Condition on Discharge: Stable Discharge Disposition: Discharge to SNF Discharge Time: > 30 minutes Discharge Instructions DIET: Follow Instructions for: Heart Healthy Diet Activities you can perform: Regular-No Restrictions Follow up Referrals: PCP Follow-up - 1 Week Continued Medications: Albuterol 18 GM Inh (Ventolin Hfa 18 GM Inh) 90 Mcg/Act Aer 1 PUFF INH QID PRN for SOB/WHEEZING, #1 INHALER 0 Refills Aspirin (Aspirin Childrens) 81 Mg Chew 81 MG CHEW DAILY, TAB Calcium Carbonate-Vitamin D (Calcium 600+D 200) 600-200 Mg-Unit Tab 1 TAB PO DAILY for Nutritional Supplement, TAB 0 Refills Clopidogrel (Plavix) 75 Mg Tab 75 MG PO DAILY for Blood Clot Prevention, #30 TAB 0 Refills Diltiazem (Diltiazem) 120 Mg Tab 120 MG PO DAILY for Angina, #120 TAB 0 Refills Escitalopram (Escitalopram) 20 Mg Tab 20 MG PO DAILY, #30 TAB 0 Refills Furosemide (Lasix) 40 Mg Tab 40 MG PO DAILY, #30 TAB 0 Refills Lactobacillus Acidophilus (Probiotic) 10 Billion Cell Cap 1 CAP PO DIRECTED for Nutritional Supplement, #90 CAP 0 Refills Levothyroxine (Levothyroxine) 88 Mcg Tab 88 MCG PO DAILY for Thyroid, #30 TAB 0 Refills Lisinopril (Lisinopril) 5 Mg Tab 5 MG PO DAILY for Blood Pressure Management, #30 TAB 0 Refills Loperamide (Loperamide) 2 Mg Cap 2 MG PO BID PRN for DIARRHEA, CAP 0 Refills One capsule after each loose stool. Not to exceed 8 capsules per day. Methocarbamol (Methocarbamol) 500 Mg Tab 500 MG PO HS for Muscle Spasm, #120 TAB 0 Refills Pravastatin (Pravastatin) 20 Mg Tab 20 MG PO HS for Cholesterol Management, #30 TAB 0 Refills Ropinirole (Ropinirole) 0.25 Mg Tab 0.25 MG PO HS, #30 TAB 0 Refills Tiotropium Inh (Spiriva Handihaler) 18 Mcg Cap 18 MCG INH DAILY for COPD, #30 CAP 0 Refills 1 capsule = 18 mcg Yoel Thornton Nov 08, 2017 09:13
[2017-11-08] MEDS: LACTOBACILLUS ACIDOPHILUS TAB PO SCH ×2 (09:23→13:00)
[2017-11-08] MEDS: CALCIUM/VITAMIN D 250 MG/125 U TAB PO SCH (09:24)
[2017-11-08] MEDS: FUROSEMIDE 40 MG TAB PO SCH (09:24)
[2017-11-08] MEDS: ESCITALOPRAM OXALATE 20 MG TAB PO SCH (09:24)
[2017-11-08] MEDS: LISINOPRIL 5 MG TAB PO SCH (09:24)
[2017-11-08] MEDS: MAGNESIUM OXIDE 400 MG TAB PO SCH (09:25)
[2017-11-08] MEDS: TIOTROPIUM BROMIDE 18 MCG INH INH SCH (09:25)
[2017-11-08] MEDS: CLOPIDOGREL 75 MG TAB PO SCH (09:25)
[2017-11-08] MEDS: ASPIRIN 81 MG CHEW TAB CHEW SCH (09:25)
[2017-11-08] MEDS: DILTIAZEM-CD 120 MG CAP ER PO SCH (09:35)
[2017-11-08 12:00] VITALS: BP 138/74; PULSE 79; RESP 18; TEMP 98.9; O2SAT 97
== END 2017-11-08 15:22 | DRG 872 ==
LOC: PHED 17:00 → PHEDA 20:53 → PHEDH 11-03 00:53 → PH3B 11-03 09:58
PROVIDERS: ADMIT Hospitalist; ATTEND Hospitalist
DX: A41.89 Other specified sepsis (principal); A08.11 Acute gastroenteropathy due to Norwalk agent; K56.7 Ileus, unspecified; G62.9 Polyneuropathy, unspecified; J44.9 Chronic obstructive pulmonary disease, unspecified; K21.9 Gastro-esophageal reflux disease without esophagitis; I10 Essential (primary) hypertension; D64.9 Anemia, unspecified; E03.9 Hypothyroidism, unspecified; K44.9 Diaphragmatic hernia without obstruction or gangrene; K43.9 Ventral hernia without obstruction or gangrene; E87.6 Hypokalemia; M19.90 Unspecified osteoarthritis, unspecified site; Z23 Encounter for immunization; Z85.3 Personal history of malignant neoplasm of breast; Z86.73 Personal history of transient ischemic attack (TIA), and cerebral infarction without residual deficits; Z90.12 Acquired absence of left breast and nipple; Z92.3 Personal history of irradiation
CPT/HCPCS: 71045; 74177; 80048; 80053; 81001; 82550; 83605; 83690; 83735; 84132; 84484; 85025; 85610; 85730; 87040; 87205; 87328; 87329; 87338; 87493; 87506; 87804; 90732; 94150; 96361; 96365; 96366; 96367; 96372; 96375; J1170; J2270; J2405; J2543; J2550; J3480; J7030; Q9967

== ENCOUNTER 2018-01-11 10:01 | Emergency (ER) | payer OTHER, MEDICAID ==
[~2018-01-11] VITALS: Ht 160 cm; Wt 85.0 kg
[~2018-01-11 10:01] MED LIST changes: -CLOTCRE TOPICAL; +FURO1TAB60 PO; +LACTCAP8 PO; -LEVO50TA53 PO; +LEVO88TA2 PO; -NORC5TAB PO; -PROB1CAP PO; -VITA500T PO
[2018-01-11 10:05] VITALS: BP 151/72; PULSE 90; RESP 18; TEMP 98.7; O2SAT 95
--- NOTE | 2018-01-11 10:16 | PD ---
HPI Chief Complaint: Fall Time Seen by Provider: 10:08 Travel History International Travel<30 days: No Contact w/Intl Traveler<30days: No Traveled to known affect area: No History of Present Illness HPI This is an 87-year-old female who had a slip and fall while in the shower at [facility] living injuring her left shoulder, left ribs, right hip. She reports she simply slipped falling in the shower. She denies head injury or loss of consciousness. She is currently on Plavix. She denies headache, visual changes, nausea vomiting, chest pain, shortness breath, abdominal pain, paresthesia or weakness of extremities. She has pain localized to the left shoulder and right hip which is worse with movement and relieved with rest. Symptom severity is moderate. The fall was witnessed by staff who were helping her shower. PFSH Past Medical History Hx Anticoagulant Therapy: Yes Anemia: Yes Arthritis: Yes Blood Disorders: No Anxiety: No Depression: No Heart Rhythm Problems: No Cancer: Yes (LEFT BREAST) Cardiovascular Problems: Yes High Cholesterol: No Chemotherapy: No Chest Pain: No Congestive Heart Failure: No COPD: Yes (MILD) Cerebrovascular Accident: Yes (2013) Diabetes: No Diminished Hearing: No Endocrine: Yes Gastrointestinal Disorders: Yes GERD: Yes Genitourinary: No Hypertension: Yes Immune Disorder: No Implanted Vascular Access Dvce: Yes Musculoskeletal: Yes Neurologic: Yes Psychiatric: No Reproductive: Yes (ONE PRODUCED TWINS) Respiratory: Yes Radiation Therapy: Yes Shingles: Yes Thyroid Disease: Yes ?: Not Menopausal: Yes : 6 Para: 5 Miscarriage: 2 Past Surgical History Abdominal Surgery: Yes (PARTIAL COLECTOMY) AICD: No Arteriovenous Shunt: No Body Medical Devices: METAL PLATES IN THE NECK PER PT AND DAUGHTER/ discectomy Cardiac Surgery: No Ear Surgery: No Endocrine Surgery: No Eye Surgery: Yes (CAITLIN. 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) MRSA Reported Meds & Prescriptions Reported Meds & Active Scripts Active Reported Probiotic (Lactobacillus Acidophilus) 10 Billion Cell Cap 1 Cap PO DIRECTED Levothyroxine (Levothyroxine Sodium) 88 Mcg Tab 88 Mcg PO DAILY Escitalopram (Escitalopram Oxalate) 20 Mg Tab 20 Mg PO DAILY Calcium 600+D 200 (Calcium Carbonate-Vitamin D) 600-200 Mg-Unit Tab 1 Tab PO DAILY Diltiazem (Diltiazem HCl) 120 Mg Tab 120 Mg PO DAILY Pravastatin 20 Mg Tab 20 Mg PO HS Spiriva Handihaler (Tiotropium Inh) 18 Mcg Cap 18 Mcg INH DAILY 1 capsule = 18 mcg Ventolin Hfa 18 GM Inh (Albuterol Sulfate) 90 Mcg/Act Aer 1 Puff INH QID PRN Loperamide (Loperamide HCl) 2 Mg Cap 2 Mg PO BID PRN One capsule after each loose stool. Not to exceed 8 capsules per day. Ropinirole 0.25 Mg Tab 0.25 Mg PO HS Methocarbamol 500 Mg Tab 500 Mg PO HS Lisinopril 5 Mg Tab 5 Mg PO DAILY Plavix (Clopidogrel Bisulfate) 75 Mg Tab 75 Mg PO DAILY Review of Systems Except as stated in HPI: all other systems reviewed are Neg General / Constitutional: No: Fever Eyes: No: Visual changes HENT: No: Headaches Cardiovascular: No: Chest Pain or Discomfort Respiratory: No: Shortness of Breath Gastrointestinal: No: Abdominal Pain Genitourinary: No: Dysuria Musculoskeletal: Positive: Pain (Left shoulder, right hip, left ribs) Skin: No Rash Neurologic: No: Weakness Physical Exam Narrative GENERAL: Alert and well-appearing 87-year-old female. SKIN: Warm and dry. No areas of ecchymosis or abrasions. HEAD: Normocephalic. Atraumatic EYES: Pupils equal, round, reactive to light. EOMs intact. No injection or drainage. NECK: Supple, trachea midline. No cervical midline tenderness. Freely moves the neck. CARDIOVASCULAR: Regular rate and rhythm without murmurs, gallops, or rubs. Chest wall: Mild +TTP left lateral ribs. No crepitus or palpable fracture. RESPIRATORY: Breath sounds equal bilaterally. No accessory muscle use. GASTROINTESTINAL: Abdomen soft, non-tender, nondistended. MUSCULOSKELETAL: No cyanosis, or edema. Left upper extremity :+TTP left anterior shoulder. No step-off deformity. Limited range of motion of the shoulder due to pain. Palpable distal pulses. Normal sensation. Equal hand grasp. brisk cap refill. Right lower extremity: +TTP lateral hip. No overlying ecchymosis. Very mild pain with hip flexion and external rotation. Palpable distal pulses. Normal sensation. Brisk cap refill. BACK: Nontender spine. Without obvious deformity. No CVA tenderness. Data Data Last Documented VS Vital Signs Date Time Temp Pulse Resp B/P (MAP) Pulse Ox O2 Delivery O2 Flow Rate FiO2 01/11/18 10:05 98.7 90 18 151/72 (98) 95 Orders Orders Hip, Uni(Ap&Lat) W Ap Pelvis (01/11/18 ) Shoulder, Limited(2vws) (01/11/18 ) Ct Brain W/O Iv Contrast(Rout) (01/11/18 ) Ct Cerv Spine W/O Contrast (01/11/18 ) Ct Thorax/ Chest Wo Iv Contras (01/11/18 10:27) Acetaminophen (Tylenol) (01/11/18 12:15) Ed Discharge Order (01/11/18 12:35) MDM Medical Decision Making Medical Screen Exam Complete: Yes Emergency Medical Condition: Yes Differential Diagnosis Shoulder fracture, hip fracture, rib fracture, contusions, ICH Narrative Course 87-year-old female here with left shoulder, rib, right hip pain after a slip and fall in the shower today. She has a normal neurologic exam. She is well- appearing in no distress. CT brain: No hemorrhage CT cervical spine: CT chest: No rib fracture or pneumothorax X-ray left shoulder: Negative for fracture or dislocation X-ray right hip: Negative for fracture All findings were discussed with patient and family. She was given Tylenol for pain with minimal relief in pain. Patient was offered something stronger and declined. Family is requesting patient be sent home with Tylenol 3 with codeine and she has had this in the past and is helped with her pain. Risk of fall while taking narcotic pain medication discussed at length with family. They report the patient will be better wheelchair-bound and a requesting narcotic pain medication for her. Diagnosis Primary Impression: Shoulder contusion Qualified Codes: S40.012A - Contusion of left shoulder, initial encounter Additional Impressions: Contusion, hip Qualified Codes: S70.01XA - Contusion of right hip, initial encounter Rib contusion Qualified Codes: S20.219A - Contusion of unspecified front wall of thorax, initial encounter Referrals: Primary Care Physician Additional Instructions: Pain medication as directed. As we discussed Tylenol 3 with codeine may cause dizziness and increase her risk of falls. Follow-up with her primary doctor. Return if he develop new or worsening symptoms. Scripts Acetaminophen-Codeine (Tylenol-Codeine #3) 300-30 mg Tab 1 TAB PO Q6H Y for PAIN, #12 TAB 0 Refills Prov: Isamar Meadows 01/11/18 Disposition: 01 DISCHARGE HOME Condition: Stable Isamar Meadows January 11, 2018 10:16
--- NOTE | 2018-01-11 11:30 | RADRPT ---
EXAM DATE: 01/11/2018 11:27 AM EDT AGE/SEX: 87 years / Female INDICATIONS: Patient fell today. CLINICAL DATA: This is the patient's initial encounter. Patient reports that signs and symptoms have been present for 1 day and indicates a pain score of 9/10. MEDICAL/SURGICAL HISTORY: . Chronic obstructive pulmonary disease. Carcinoma, breast. Osteoporo sis. SURGICAL HISTORY : Colon resection. Mastectomy, left. Colon resection. Mastectomy, left. COMPARISON: No prior [place] exams available for comparison. FINDINGS: Multiple views of the left shoulder were obtained and demonstrate osteopenia with no acute fracture o r malalignment. There is evidence of chronic rotator cuff degeneration with superior migration of the humeral head and eburnation of the inferior chromium with sclerosis. The soft tissues are unremarkab le. CONCLUSION: 1. No acute fracture or malalignment. 2. Chronic rotator cuff degeneration. Electronically signed by: Jack Reza MD 01/11/2018 11:28 AM EDT
--- NOTE | 2018-01-11 11:47 | RADRPT ---
EXAM DATE: 01/11/2018 11:38 AM EDT AGE/SEX: 87 years / Female INDICATIONS: Trauma. Fall. CLINICAL DATA: This is the patient's initial encounter. Patient reports that signs and symptoms have been present for 1 day and indicates a pain score of 0/10. MEDICAL/SURGICAL HISTORY: Carcinoma, breast. Chronic obstructive pulmonary disease. Gastroesophag eal reflux disease. Hypertension. Cerebrovascular disease. Cardiovascular disease. Asthma. Maste ctomy, left. Partial colectomy. RADIATION DOSE: 59.60 CTDI (mGy) COMPARISON: [facility], CT BRAIN W/O CONTRAST, 10/17/2016. . TECHNIQUE: CT of the head without contrast. Using automated exposure control and adjustment of the mA and/or kV according to patient size, radiation dose was kept as low as reasonably achievable to ob tain optimal diagnostic quality images. FINDINGS: Cerebrum: The ventricles are normal for age with moderate atrophic change. Chronic small vessel isch emic changes are again noted. No evidence of midline shift, mass lesion, hemorrhage or acute infarcti on. No extraaxial fluid collections are seen. Posterior Fossa: The cerebellum and brainstem are intact. The 4th ventricle is midline. The cerebe llopontine angle is unremarkable. Extracranial: The visualized portion of the orbits is intact. Skull: The calvaria is intact. No evidence of skull fracture. CONCLUSION: 1. No acute hemorrhage or mass effect. 2. Atrophy and chronic small vessel ischemic changes again noted. Electronically signed by: Jack Reza MD 01/11/2018 11:46 AM EDT
--- NOTE | 2018-01-11 11:49 | RADRPT ---
EXAM DATE: 01/11/2018 11:43 AM EDT AGE/SEX: 87 years / Female INDICATIONS: Trauma. Fall. Left rib pain. CLINICAL DATA: This is the patient's initial encounter. Patient reports that signs and symptoms have been present for 1 day and indicates a pain score of 7/10. MEDICAL/SURGICAL HISTORY: Carcinoma, breast. Chronic obstructive pulmonary disease. Gastroesophag eal reflux disease. Hypertension. Cerebrovascular disease. Cardiovascular disease. Asthma. Maste ctomy, left. Fusion, cervical. Partial colectomy. RADIATION DOSE: 17.27 CTDI (mGy) COMPARISON: No prior [place] exams available for comparison. TECHNIQUE: Multiple contiguous axial images were obtained through the chest without contrast. Image s were obtained in suspended respiration using multiple row detector helical technique. Using automa anoop exposure control and adjustment of the mA and/or kV according to patient size, radiation dose was kept as low as reasonably achievable to obtain optimal diagnostic quality images. FINDINGS: Minimal bibasilar parenchymal changes evident. 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 The lungs are otherwise clear. There is mild compensated cardiomegaly without axillary adenopathy. Moderate vascular calcifications including coronary disease are evident. Review of bone windows reveals degenerative changes in the thoracic spine. I don't see rib fracture. CONCLUSION: 1. Negative for acute traumatic injury. 2. 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 3. I don't see a rib fracture. Electronically signed by: Enrique Mendoza MD 01/11/2018 11:48 AM EDT
--- NOTE | 2018-01-11 11:54 | RADRPT ---
EXAM DATE: 01/11/2018 11:33 AM EDT AGE/SEX: 87 years / Female INDICATIONS: Pain after fall today. CLINICAL DATA: This is the patient's initial encounter. Patient reports that signs and symptoms have been present for 1 day and indicates a pain score of 2/10. MEDICAL/SURGICAL HISTORY: . Chronic obstructive pulmonary disease. Carcinoma, breast. Osteopor osis Mastectomy, left. Colon resection. COMPARISON: [facility], HIP RIGHT (AP&LAT 2/3VWS) W AP PELVIS, 07/05/2016. . FINDINGS: Bony structures are intact and in normal alignment. Mild degenerative changes are again noted in both hips. There is diffuse osteopenia. Degenerative disc changes are again noted in the lower lumbar spi ne with mild scoliosis. Soft tissues are unremarkable. No radiopaque foreign bodies seen. CONCLUSION: 1. Osteopenia with no acute fracture or malalignment. Line mild degenerative change in both hips. 2. Degenerative disc changes in the lumbar spine. Electronically signed by: Jack Reza MD 01/11/2018 11:53 AM EDT
--- NOTE | 2018-01-11 12:00 | RADRPT ---
EXAM DATE: 01/11/2018 11:53 AM EDT AGE/SEX: 87 years / Female INDICATIONS: Trauma. Fall. Left neck pain. CLINICAL DATA: This is the patient's initial encounter. Patient reports that signs and symptoms have been present for 1 day and indicates a pain score of 5/10. MEDICAL/SURGICAL HISTORY: Carcinoma, breast. Chronic obstructive pulmonary disease. Gastroeso phageal reflux disease. Hypertension. Cerebrovascular disease. Cardiovascular disease. Asthma. M astectomy, left. Fusion, cervical. Partial colectomy. RADIATION DOSE: 25.79 CTDI (mGy) COMPARISON: No prior [place] exams available for comparison. TECHNIQUE: Contiguous axial images were obtained using helical multirow detector technique. The vol umetric data was post-processed with multiplanar reconstruction in oblique axial, sagittal, and coron al planes. Using automated exposure control and adjustment of the mA and/or kV according to patient s ize, radiation dose was kept as low as reasonably achievable to obtain optimal diagnostic quality salena ges. FINDINGS: There are extensive degenerative changes in the cervical spine with previous anterior cervical fusion from C3 to C5. There are degenerative changes at C1-C2 articulation. The dens is intact. C2-C3: Mild uncinate ridging is present without spinal stenosis. C3-C4: Level is fused. Neural foramen are adequate. C4-C5: Level is fused. Neuroforamen are adequate. C5-C6: Moderate uncinate ridging is present with bilateral neural foraminal encroachment. Moderate sp inal stenosis is evident. C6-C7 mild uncinate ridging is present with bilateral neural foraminal encroachment. Neural foraminal encroachment is worse on the left. C7-T1 mild ridging is present. Lung apices are clear. Fracture is not appreciated. CONCLUSION: 1. Previous fusion C3-C5. 2. Extensive degenerative changes throughout the cervical spine. Moderate spinal stenosis C5-C6. 3. Fracture not appreciated. 4. Controlled flexion-extension films would be of benefit to exclude instability. Electronically signed by: Enrique Mendoza MD 01/11/2018 11:58 AM EDT
[2018-01-11] MEDS ORDERED: ACETAMINOPHEN 325 MG TAB PO ONE (12:15)
[2018-01-11] MEDS ORDERED: TYLE325T PO (12:36)
[2018-01-11] MEDS ORDERED: TYLETAB34 PO (12:42)
== END 2018-01-11 14:00 | disposition home or self-care (01) ==
LOC: PHEFT 10:01
DX: S40.012A Contusion of left shoulder, initial encounter (principal); S70.01XA Contusion of right hip, initial encounter; S20.219A Contusion of unspecified front wall of thorax, initial encounter; D64.9 Anemia, unspecified; J44.9 Chronic obstructive pulmonary disease, unspecified; I10 Essential (primary) hypertension; E07.9 Disorder of thyroid, unspecified; W18.2XXA Fall in (into) shower or empty bathtub, initial encounter; Y92.091 Bathroom in other non-institutional residence as the place of occurrence of the external cause
CPT/HCPCS: 70450; 71250; 72125; 73030; 73502; 99284

== ENCOUNTER 2018-05-13 11:01 | Inpatient (IN) ==
[2018-05-13] MEDS ORDERED: MethylPREDNISolone Sod Succinate Inj 125 MG/2 ML Vial IV.PUSH ONE (11:14)
--- NOTE | 2018-05-13 11:43 | ED ---
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 Patient states she has developed a cough that is productive of a yellow white phlegm. She denies any fever or chills. Denies any pain. States her chest does feel tight because she cannot breathe. She denies any nausea or vomiting. She has had no change in bowel movements or voids. She has had her pneumonia vaccination as well as her flu vaccination. Patient resides in an assisted living facility. She has no other symptoms to report. Related Data Home Medications Medication Instructions Recorded Confirmed acetaminophen [Tylenol Arthritis 650 mg PO Q4HR PRN 04/14/18 05/13/18 Pain] albuterol sulfate [Ventolin HFA] 1 puff INHALATION Q4-6H PRN 04/14/18 05/13/18 ascorbic acid (vitamin C) [Vitamin 500 mg PO DAILY 04/14/18 05/13/18 C] bacillus coagulans-inulin 1 cap PO DAILY 04/14/18 05/13/18 [Probiotic Formula (inulin)] calcium carbonate-vitamin D3 1 tab PO DAILY 04/14/18 05/13/18 [Calcium 600 + D(3)] diltiazem HCl 120 mg PO DAILY 04/14/18 05/13/18 escitalopram oxalate [Lexapro] 20 mg PO DAILY 04/14/18 05/13/18 levothyroxine 88 mcg PO DAILY 04/14/18 05/13/18 lisinopril 10 mg PO DAILY 04/14/18 05/13/18 loperamide 2 mg PO Q12HR PRN 04/14/18 05/13/18 loratadine [Claritin] 10 mg PO DAILY 04/14/18 05/13/18 meclizine 25 mg PO TID 04/14/18 05/13/18 meloxicam [Mobic] 7.5 mg PO DAILY 04/14/18 05/13/18 pravastatin 20 mg PO HS 04/14/18 05/13/18 ropinirole [Requip] 0.25 mg PO QPM 04/14/18 05/13/18 tiotropium-olodaterol [Stiolto 1 puff INHALATION DAILY 04/14/18 05/13/18 Respimat] Previous Rx's Medication Instructions Recorded ciprofloxacin HCl [Cipro] 500 mg PO BID #14 tab 04/14/18 Allergies Allergy/AdvReac Type Severity Reaction Status Date / Time *MDRO Multi-Drug Resistant Allergy Unknown Uncoded 11/02/17 17:24 Organism Review of Systems ROS: all other systems reviewed are negative [facility] Medical History Medical History (atherosclerosis) (Acute) COPD (chronic obstructive pulmonary disease) (Acute) Decubital ulcer (Acute) Hypothyroid (Acute) Osteoarthritis (Acute) Social History Social History Substance History: No History of Abuse Second Hand Smoke Exposure: No Smoking Status: Unknown if ever smoked How Often Do You Have a Drink Containing Alcohol: Unable to Obtain Immunization History Tetanus Immunization: Unsure Exam Narrative Exam Narrative: GENERAL: Well-nourished elderly female patient, lying in bed, mild distress, short of breath. SKIN: Focused skin assessment warm/dry. HEAD: Atraumatic. Normocephalic. EYES: Pupils equal and round. No scleral icterus. No injection or drainage. ENT: No nasal bleeding or discharge. Mucous membranes pink and moist. NECK: Trachea midline. No JVD. CARDIOVASCULAR: Regular rate and rhythm. 2/6 murmur appreciated. RESPIRATORY: No accessory muscle use. Diminished in the bases, fine crackles, coarse cough to auscultation. Breath sounds equal bilaterally. GASTROINTESTINAL: Abdomen soft, non-tender, nondistended. Hepatic and splenic margins not palpable. MUSCULOSKELETAL: No obvious deformities. No clubbing. No cyanosis. 2+ bilateral lower extremity edema. Patient does have left mastectomy noted. No adenopathy. NEUROLOGICAL: Awake and alert. No obvious cranial nerve deficits. Motor grossly within normal limits. Normal speech. PSYCHIATRIC: Appropriate mood and affect; insight and judgment normal. Course Initial Documented Vital Signs Temperature 98.9 F 05/13/18 11:10 Pulse Rate 54 L 05/13/18 11:10 Respiratory Rate 15 09/29/18 11:10 Blood Pressure 140/74 05/13/18 11:10 Pulse Oximetry 92 L 05/13/18 11:10 Last Documented Vital Signs Temperature 98.9 F 05/13/18 11:10 Pulse Rate 86 05/13/18 12:29 Respiratory Rate 20 05/13/18 12:29 Blood Pressure 140/74 05/13/18 12:06 Pulse Oximetry 93 L 05/13/18 12:09 Medical Decision Making RICHMOND Attestation RICHMOND supervised visit: Yes Attestation: I, Dr. Oshea, have reviewed the advance practice practitioner's documentation and am in agreement, met with the patient face to face, made the diagnosis, and the medical decision making was done by me. *My assessment and Findings: The patient's 88 years old. She arrives here with shortness of breath. Workup reveals bilateral airspace density potentially consistent with pulmonary edema. We do see a leukocytosis and her description of airspace opacity as well which could be consistent with pneumonia. The daughter reports the patient is currently undergoing treatment for a MRSA UTI. The lungs are clear. The patient is resting comfortably in the exam room. There is no abdominal tenderness. There is no significant lower extremity edema present however the daughter notes the patient does often suffer with bilateral lower extremity edema and has been wearing stockings. Admission for management of pneumonia with multiple comorbidities including COPD and potentially CHF. The patient does not have an echo on record however we do see a BNP of 171 and the x-ray findings as discussed. MDM Narrative Medical decision making narrative: 88-year-old female presents emergency department for evaluation of shortness of breath. Patient does appear mild respiratory distress. She is placed on 2 L nasal cannula oxygen. Patient has diminished breath sounds throughout with fine crackles and a coarse cough. Chest x-ray is concerning for pulmonary edema however patient has a leukocytosis of 22.5. Her oxygen saturation is 93% on 3 L nasal cannula when she is not oxygen dependent at home. Patient's BNP is elevated when it typically is normal. I discussed the patient with my attending physician. Blood cultures and lactic acid are ordered. She will be given Rocephin and azithromycin here for suspected pneumonia. Call was placed to [facility] for admission. Medical Screen Exam Complete: Yes Emergency Medical Condition: Yes Lab Data Result diagrams: 05/13/18 11:50 05/13/18 11:50 Lab Results 05/13/18 05/13/18 05/13/18 Range/Units 11:47 11:50 11:50 WBC 22.5 H (4.0-11.0) th/mm3 RBC 4.07 (4.00-5.30) mil/mm3 Hgb 13.0 (11.6-15.3) gm/dL Hct 38.9 (35.0-46.0) % MCV 95.7 (80.0-100.0) fL MCH 32.0 (27.0-34.0) pg MCHC 33.5 (32.0-36.0) % RDW 14.9 (11.6-17.2) % Plt Count 331 (150-450) th/mm3 MPV 8.4 (7.0-11.0) fL Prelim Diff (Auto) Slide review pending Neut % (Auto) 62.3 (16.0-70.0) % Lymph % (Auto) 20.2 (9.0-44.0) % [place] % (Auto) 9.6 H (0.0-8.0) % Eos % (Auto) 7.6 H (0.0-4.0) % Baso % (Auto) 0.3 (0.0-2.0) % Neut # (Auto) 14.0 H (1.8-7.7) th/mm3 Lymph # (Auto) 4.5 (1.0-4.8) th/mm3 [place] # (Auto) 2.2 H (0.0-0.9) th/mm3 Eos # (Auto) 1.7 H (0.0-0.4) th/mm3 Baso # (Auto) 0.1 (0.0-0.2) th/mm3 WBC Differential Manual diff final Seg Neuts % (Manual) 59 (16-70) % Band Neuts % (Manual) 1 (0-6) % Lymphocytes % (Manual) 21 (9-44) % Monocytes % (Manual) 8 (0-8) % Eosinophils % (Manual) 11 H (0-4) % Abs Neuts (Manual) 13.5 H (1.8-7.7) th/mm3 Differential Comment . Platelet Estimate Normal (Normal) Platelet Morphology Normal (Normal) PT 10.7 D (9.8-11.6) sec INR 1.1 Ratio APTT 27.4 (24.3-30.1) sec Puncture Site Right radial Patient Temperature 98.6 O2 Saturation 90 (90-100) % ABG pH 7.46 H (7.380-7.420) ABG pCO2 36 L (38-42) mmHg ABG pO2 61 (61-120) mmHg ABG HCO3 25 (22-26) mmol/L ABG O2 Content 15.8 (12.0-20.0) Vol % ABG Base Excess 1.1 (-2-2) mmol/L ABG Methemoglobin 1.1 (0-2) % Luis [place]ipe Test Present Hemoglobin 12.6 (12.0-16.0) G/DL Carboxyhemoglobin 0.9 (0-4) % O2 Delivery Device Nasal cannula Liter Flow 2.00 L/M Inspired O2 28 % Critical Value No Sodium (136-145) meq/L Potassium (3.5-5.1) meq/L Chloride (98-107) meq/L Carbon Dioxide (21.0-32.0) meq/L Anion Gap (5-15) meq/L BUN (7-18) mg/dL Creatinine (0.50-1.00) mg/dL Estimated GFR (>89) mL/min Random Glucose (74-106) mg/dL Calcium (8.5-10.1) mg/dL Magnesium (1.5-2.5) mg/dL Total Bilirubin (0.2-1.0) mg/dL AST (15-37) U/L ALT (10-53) U/L Alkaline Phosphatase (45-117) U/L Troponin I (0.02-0.05) ng/mL B-Natriuretic Peptide (0-100) pg/mL Total Protein (6.4-8.2) g/dL Albumin (3.4-5.0) g/dL 05/13/18 05/13/18 Range/Units 11:50 11:50 WBC (4.0-11.0) th/mm3 RBC (4.00-5.30) mil/mm3 Hgb (11.6-15.3) gm/dL Hct (35.0-46.0) % MCV (80.0-100.0) fL MCH (27.0-34.0) pg MCHC (32.0-36.0) % RDW (11.6-17.2) % Plt Count (150-450) th/mm3 MPV (7.0-11.0) fL Prelim Diff (Auto) Neut % (Auto) (16.0-70.0) % Lymph % (Auto) (9.0-44.0) % [place] % (Auto) (0.0-8.0) % Eos % (Auto) (0.0-4.0) % Baso % (Auto) (0.0-2.0) % Neut # (Auto) (1.8-7.7) th/mm3 Lymph # (Auto) (1.0-4.8) th/mm3 [place] # (Auto) (0.0-0.9) th/mm3 Eos # (Auto) (0.0-0.4) th/mm3 Baso # (Auto) (0.0-0.2) th/mm3 WBC Differential Seg Neuts % (Manual) (16-70) % Band Neuts % (Manual) (0-6) % Lymphocytes % (Manual) (9-44) % Monocytes % (Manual) (0-8) % Eosinophils % (Manual) (0-4) % Abs Neuts (Manual) (1.8-7.7) th/mm3 Differential Comment Platelet Estimate (Normal) Platelet Morphology (Normal) PT (9.8-11.6) sec INR Ratio APTT (24.3-30.1) sec Puncture Site Patient Temperature O2 Saturation (90-100) % ABG pH (7.380-7.420) ABG pCO2 (38-42) mmHg ABG pO2 (61-120) mmHg ABG HCO3 (22-26) mmol/L ABG O2 Content (12.0-20.0) Vol % ABG Base Excess (-2-2) mmol/L ABG Methemoglobin (0-2) % Luis Felipe Test Hemoglobin (12.0-16.0) G/DL Carboxyhemoglobin (0-4) % O2 Delivery Device Liter Flow L/M Inspired O2 % Critical Value Sodium 140 (136-145) meq/L Potassium 4.0 (3.5-5.1) meq/L Chloride 104 (98-107) meq/L Carbon Dioxide 26.9 (21.0-32.0) meq/L Anion Gap 9 (5-15) meq/L BUN 18 (7-18) mg/dL Creatinine 0.71 (0.50-1.00) mg/dL Estimated GFR 78 L (>89) mL/min Random Glucose 102 (74-106) mg/dL Calcium 9.1 (8.5-10.1) mg/dL Magnesium 2.2 (1.5-2.5) mg/dL Total Bilirubin 0.7 (0.2-1.0) mg/dL AST 11 L (15-37) U/L ALT 11 (10-53) U/L Alkaline Phosphatase 157 H (45-117) U/L Troponin I Less than 0.02 L (0.02-0.05) ng/mL B-Natriuretic Peptide 171 H (0-100) pg/mL Total Protein 7.3 (6.4-8.2) g/dL Albumin 3.4 (3.4-5.0) g/dL Imaging Data Radiologist's impression: Chest X-Ray 05/13/18 11:14 CONCLUSION: Abnormal interstitial and airspace opacities bilaterally, as above. The pattern is suggestive of pulmonary edema. Discharge Plan Discharge Disposition Patient Disposition: 30 Still Patient Discharge Condition Condition: Stable Discharge Details Diagnosis: Acute dyspnea, Acute exacerbation of chronic obstructive airways disease Physicians Team ED Provider: Jah Oshea ED Midlevel Provider: Chrissy Ferrer Primary Care Provider: UNKNOWN, Rxs /Orders / Referrals /Forms Prescriptions: No Action loperamide 2 mg Capsule 2 mg PO Q12HR PRN (Reason: Diarrhea) RF: 0 acetaminophen [Tylenol Arthritis Pain] 650 mg Tablet Extended Release 650 mg PO Q4HR PRN (Reason: Pain) RF: 0 meloxicam [Mobic] 7.5 mg Tablet 7.5 mg PO DAILY RF: 0 levothyroxine 88 mcg Tablet 88 mcg PO DAILY RF: 0 ascorbic acid (vitamin C) [Vitamin C] 500 mg Tablet 500 mg PO DAILY RF: 0 ropinirole [Requip] 0.25 mg Tablet 0.25 mg PO QPM RF: 0 meclizine 25 mg Tablet 25 mg PO TID RF: 0 lisinopril 10 mg Tablet 10 mg PO DAILY RF: 0 diltiazem HCl 120 mg Capsule,Ext.Rel 24h Degradable 120 mg PO DAILY RF: 0 pravastatin 20 mg Tablet 20 mg PO HS RF: 0 albuterol sulfate [Ventolin HFA] 90 mcg/actuation Hfa Aerosol Inhaler 1 puff INHALATION Q4-6H PRN (Reason: Shortness Of Breath) RF: 0 loratadine [Claritin] 10 mg Tablet 10 mg PO DAILY RF: 0 escitalopram oxalate [Lexapro] 20 mg Tablet 20 mg PO DAILY RF: 0 calcium carbonate-vitamin D3 [Calcium 600 + D(3)] 600 mg(1,500mg) -400 unit Tablet 1 tab PO DAILY RF: 0 bacillus coagulans-inulin [Probiotic Formula (inulin)] 1 billion-250 cell-mg Capsule 1 cap PO DAILY RF: 0 tiotropium-olodaterol [Stiolto Respimat] 2.5-2.5 mcg/actuation Mist 1 puff INHALATION DAILY RF: 0 ciprofloxacin HCl [Cipro] 500 mg tablet 500 mg PO BID Qty: 14 RF: 0 Status ED Status: Pending Admission
--- NOTE | 2018-05-13 12:00 | XR ---
EXAM DATE: 05/13/2018 11:14 AM EDT AGE/SEX: 88 years / Female INDICATIONS: Shortness of breath. CLINICAL DATA: This is the patient's initial encounter. Patient reports that signs and symptoms have been present for 1 day and indicates a pain score of 0/10. MEDICAL/SURGICAL HISTORY: . Chronic obstructive pulmonary disease. Hypertension. Gastroesophage al reflux disease. Thyroid disease. Cerebrovascular accident. Breast cancer. . Tonsillectomy. Maste ctomy, left. Partial colectomy. Bilateral cataract removal. Cervical surgery. COMPARISON: [facility], CHEST SINGLE AP, 11/02/2017. . FINDINGS: AP view of the pelvis demonstrates a normal-sized cardiac silhouette with calcification of the aorta. EKG lines overlie the patient. Lungs are underinflated and there are abnormal interstitial opacities bilaterally primarily in the mid and lower lung zones with bilateral lower lung zone airspace consol idation. No pleural effusion or pneumothorax is identified. Bones demonstrate no acute finding. There are stable chronic right shoulder changes characteristic of chronic rotator cuff tear. CONCLUSION: Abnormal interstitial and airspace opacities bilaterally, as above. The pattern is suggestive of pulm onary edema. Electronically signed by: Manuel De Paz MD 05/13/2018 11:59 AM EDT
[2018-05-13 12:06] LABS: ABG Base Excess 1.1 mmol/L (-2-2); ABG PCO2 36 mmHg (38-42); ABG PO2 61 mmHg (61-120)
[2018-05-13 12:36] LABS: Baso # (Auto) 0.1 th/mm3 (0.0-0.2); Baso % (Auto) 0.3 % (0.0-2.0); Eos # (Auto) 1.7 th/mm3 (0.0-0.4); Eos % (Auto) 7.6 % (0.0-4.0); Hematocrit 38.9 % (35.0-46.0); Lymph # (Auto) 4.5 th/mm3 (1.0-4.8); Lymph % (Auto) 20.2 % (9.0-44.0); Mean Corpuscular HGB Conc 33.5 % (32.0-36.0); Mean Corpuscular Volume 95.7 fL (80.0-100.0); Mean Platelet Volume 8.4 fL (7.0-11.0); Mono # (Auto) 2.2 th/mm3 (0.0-0.9); Mono % (Auto) 9.6 % (0.0-8.0); Neut % (Auto) 62.3 % (16.0-70.0); Platelet Count 331 th/mm3 (150-450); Red Blood Count 4.07 mil/mm3 (4.00-5.30); Red Cell Distribution Width 14.9 % (11.6-17.2); White Blood Count 22.5 th/mm3 (4.0-11.0)
[2018-05-13 12:45] LABS: Activated Partial Thrombo Time 27.4 sec (24.3-30.1); INR 1.1 Ratio; Prothrombin Time 10.7 sec (9.8-11.6)
--- NOTE | 2018-05-13 13:00 | ECG ---
Date Performed: 05/13/2018 Time Performed: 11:13:22 PTAGE: 88 years EKG: Baseline artifact present SINUS BRADYCARDIA WITH OCCASIONAL SUPRAVENTRICULAR PREMATURE COMP LEXES LEFT VENTRICULAR HYPERTROPHY AND ST-T CHANGE ABNORMAL ECG No significant change from prior elec trocardiogram. DOCTOR: Telly Melton Interpretating Date/Time 05/13/2018 12:59:25
[2018-05-13 13:01] LABS: Alanine Aminotransferase 11 U/L (10-53); Albumin 3.4 g/dL (3.4-5.0); Anion Gap 9 meq/L (5-15); Aspartate Aminotransferase 11 U/L (15-37); Blood Urea Nitrogen 18 mg/dL (7-18); Calcium 9.1 mg/dL (8.5-10.1); Carbon Dioxide 26.9 meq/L (21.0-32.0); Chloride 104 meq/L (98-107); Glomerular Filtration Rate 78 mL/min (>89); Glucose,Random 102 mg/dL (74-106); Magnesium 2.2 mg/dL (1.5-2.5); Sodium 140 meq/L (136-145)
[2018-05-13 13:05] LABS: Alkaline Phosphatase 157 U/L (45-117); Eosinophils 11 % (0-4); Lymphocytes 21 % (9-44); Monocytes 8 % (0-8); Platelet Estimate Normal (Normal); Platelet Morphology Normal (Normal); Total Protein 7.3 g/dL (6.4-8.2)
[2018-05-13] MEDS ORDERED: Vancomycin Inj 1 GM/200 ML PIGGYBACK IV.SIG ONE (14:12)
[2018-05-13] MEDS ORDERED: Acetaminophen 325 MG Tablet PO PRN (14:13)
[2018-05-13] MEDS ORDERED: Vancomycin Inj 1,000 MG in Sodium Chlor 0.9% Inj 250 ML IV.SIG ONE (15:00)
[2018-05-13 15:54] LABS: Bacteria,Urine Occasional /hpf; Bilirubin,Urine Negative (Negative); Clarity,Urine Hazy (Clear); Color,Urine Yellow (Yellw/Straw); Glucose,Urine (UA) Negative (Negative); Hyaline Casts,Urine 9 /lpf (0-3); Leukocyte Esterase,Urine Negative (Negative); Mucus,Urine Few /lpf (Occasional); Nitrite,Urine Negative (Negative); Specific Gravity,Urine 1.011 (1.002-1.035); Squamous Epithelial Cell,Urine 22 /hpf (0-5)
--- NOTE | 2018-05-13 16:00 | P.HP ---
History of Present Illness Primary Care Physician: UNKNOWN History of Present Illness: 88-year-old female with a history of hypo-thyroidism, osteoarthritis, presents to the ER complaining of shortness of breath. On arrival she was hypoxic with saturations into the mid 80s off of oxygen. ER workup revealed pulmonary edema and elevated white blood cell count. Family relate a history that for the past 2-3 weeks she has been battling urinary tract infection that initially showed E. coli, repeat sample showed MRSA. She was treated with ciprofloxacin in the past but most recently was placed on Macrobid. Starting yesterday she became increasingly short of breath and states that she has had a cough that is productive of green to yellow phlegm. She denies any fevers. 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 They state that her mind is still sharp and she is very active with her local community. She denies any diarrhea, nausea, vomiting. She denies any chest pain, irregular rhythm, syncopal episodes. Review of Systems All other systems reviewed negative except as stated in HPI PMFSH - History History Provided By: Patient, Medical Record, Manufacturing Tech / EMT - Medical History Medical History: Medical History (Last Reviewed 05/13/18 @ 11:41 by MATT Bettencourt) (atherosclerosis) COPD (chronic obstructive pulmonary disease) Decubital ulcer Hypothyroid Osteoarthritis - Family History Family History: Family History (Last Updated 05/13/18 @ 15:49 by Roman Krueger MD) Other Hypertension - Tobacco History Second Hand Smoke Exposure: No Smoking Status: Unknown if ever smoked - Alcohol History How Often Do You Have a Drink Containing Alcohol: Unable to Obtain - Substance Use History Substance History: No History of Abuse - Immunization History Tetanus Immunization: Unsure Medications and Allergies Active Medications: Active Medications Acetaminophen (Tylenol) 650 mg PO Q4H PRN PRN Reason: Temp > 100.4 Al Hydroxide/Mg Hydroxide (Milk Of Magnang Liq) 30 ml PO Q12H PRN PRN Reason: Mild Constipation Diltiazem HCl (Cardizem Cd 24hr) 120 mg PO DAILY JOVITA Escitalopram Oxalate (Lexapro) 20 mg PO DAILY JOVITA Heparin Sodium (Porcine) (Heparin Inj) 5,000 units SQ Q12H JOVITA Vancomycin HCl 1,000 mg/ (Sodium Chloride) 250 mls @ 250 mls/hr IV.SIG ONCE ONE Stop: 05/13/18 15:59 Last Admin: 05/13/18 15:08 Dose: 250 mls/hr Levothyroxine Sodium (Synthroid) 88 mcg PO DAILY@0600 [facility] Lisinopril (Prinivil) 10 mg PO DAILY [facility] Ondansetron HCl (Zofran Inj) 4 mg IV.PUSH Q6H PRN PRN Reason: NAUSEA OR VOMITING Patient Own Medication[Stiolto Respimat] 0 each INH DAILY [facility] Ropinirole HCl (Requip) 0.25 mg PO QPM [facility] Allergies Allergy/AdvReac Type Severity Reaction Status Date / Time *MDRO Multi-Drug Resistant Allergy Unknown Uncoded 11/02/17 17:24 Organism Home Medications Medication Instructions Recorded Confirmed Type acetaminophen [Tylenol Arthritis 650 mg PO Q4HR PRN 04/14/18 05/13/18 History Pain] albuterol sulfate [Ventolin HFA] 1 puff INHALATION Q4-6H PRN 04/14/18 05/13/18 History ascorbic acid (vitamin C) [Vitamin 500 mg PO DAILY 04/14/18 05/13/18 History C] bacillus coagulans-inulin 1 cap PO DAILY 04/14/18 05/13/18 History [Probiotic Formula (inulin)] calcium carbonate-vitamin D3 1 tab PO DAILY 04/14/18 05/13/18 History [Calcium 600 + D(3)] diltiazem HCl 120 mg PO DAILY 04/14/18 05/13/18 History escitalopram oxalate [Lexapro] 20 mg PO DAILY 04/14/18 05/13/18 History levothyroxine 88 mcg PO DAILY 04/14/18 05/13/18 History lisinopril 10 mg PO DAILY 04/14/18 05/13/18 History loperamide 2 mg PO Q12HR PRN 04/14/18 05/13/18 History loratadine [Claritin] 10 mg PO DAILY 04/14/18 05/13/18 History meclizine 25 mg PO TID 04/14/18 05/13/18 History meloxicam [Mobic] 7.5 mg PO DAILY 04/14/18 05/13/18 History pravastatin 20 mg PO HS 04/14/18 05/13/18 History ropinirole [Requip] 0.25 mg PO QPM 04/14/18 05/13/18 History tiotropium-olodaterol [Stiolto 1 puff INHALATION DAILY 04/14/18 05/13/18 History Respimat] Exam Vital signs: Vital Signs 05/13/18 11:10 05/13/18 12:06 05/13/18 12:08 Temperature 98.9 F Pulse Rate 54 L 87 84 Respiratory Rate 15 18 20 Blood Pressure 140/74 140/74 Pulse Oximetry 92 L 94 L 05/13/18 12:09 05/13/18 12:29 Temperature Pulse Rate 86 Respiratory Rate 20 Blood Pressure Pulse Oximetry 93 L Intake & Output 05/12/18 05/13/18 05/13/18 18:59 06:59 18:59 Weight 63.503 kg Narrative: GENERAL: AAOx3, no acute distress, adequate nutrition SKIN: Warm and dry, no rashes. HEAD: Atraumatic. Normocephalic. EYES: Pupils equal, round, reactive to light. No scleral icterus. No injection or drainage. ENT: No nasal bleeding or discharge. Moist mucous membranes. Nonerythematous oropharynx. NECK: Trachea midline. No JVD. Thyroid size within normal limits. CARDIOVASCULAR: Regular rate and rhythm. 2/6 systolic ejection murmur., no gallops, no rubs. RESPIRATORY: Scattered crackles of edema bilaterally throughout both lungs. No wheezing. No accessory muscle use. GASTROINTESTINAL: Abdomen soft, non-tender, nondistended, normal active bowel sounds. Hepatic and splenic margins not palpable. MUSCULOSKELETAL: Extremities without clubbing or cyanosis. No obvious deformities. Wearing compressive stockings on lower extremities. NEUROLOGICAL: Awake and alert. No obvious cranial nerve deficits. Motor grossly within normal limits. No focal deficits. Five out of 5 muscle strength in the arms and legs. Normal speech. PSYCHIATRIC: Appropriate mood and affect; insight and judgment normal. Results - Labs CBC & Chem 7: 05/13/18 11:50 05/13/18 11:50 Labs: Laboratory Results - last 24 hr 05/13/18 05/13/18 05/13/18 11:47 11:50 11:50 WBC 22.5 H RBC 4.07 Hgb 13.0 Hct 38.9 MCV 95.7 MCH 32.0 MCHC 33.5 RDW 14.9 Plt Count 331 MPV 8.4 Prelim Diff (Auto) Slide review pending Neut % (Auto) 62.3 Lymph % (Auto) 20.2 [place] % (Auto) 9.6 H Eos % (Auto) 7.6 H Baso % (Auto) 0.3 Neut # (Auto) 14.0 H Lymph # (Auto) 4.5 [place] # (Auto) 2.2 H Eos # (Auto) 1.7 H Baso # (Auto) 0.1 WBC Differential Manual diff final Seg Neuts % (Manual) 59 Band Neuts % (Manual) 1 Lymphocytes % (Manual) 21 Monocytes % (Manual) 8 Eosinophils % (Manual) 11 H Abs Neuts (Manual) 13.5 H Differential Comment . Platelet Estimate Normal Platelet Morphology Normal PT 10.7 D INR 1.1 APTT 27.4 Puncture Site Right radial Patient Temperature 98.6 O2 Saturation 90 ABG pH 7.46 H ABG pCO2 36 L ABG pO2 61 ABG HCO3 25 ABG O2 Content 15.8 ABG Base Excess 1.1 ABG Methemoglobin 1.1 Luis Felipe Test Present Hemoglobin 12.6 Carboxyhemoglobin 0.9 O2 Delivery Device Nasal cannula Liter Flow 2.00 Inspired O2 28 Critical Value No Sodium Potassium Chloride Carbon Dioxide Anion Gap BUN Creatinine Estimated GFR Random Glucose Calcium Magnesium Total Bilirubin AST ALT Alkaline Phosphatase Troponin I B-Natriuretic Peptide Total Protein Albumin 05/13/18 05/13/18 11:50 11:50 WBC RBC Hgb Hct MCV MCH MCHC RDW Plt Count MPV Prelim Diff (Auto) Neut % (Auto) Lymph % (Auto) [place] % (Auto) Eos % (Auto) Baso % (Auto) Neut # (Auto) Lymph # (Auto) [place] # (Auto) Eos # (Auto) Baso # (Auto) WBC Differential Seg Neuts % (Manual) Band Neuts % (Manual) Lymphocytes % (Manual) Monocytes % (Manual) Eosinophils % (Manual) Abs Neuts (Manual) Differential Comment Platelet Estimate Platelet Morphology PT INR APTT Puncture Site Patient Temperature O2 Saturation ABG pH ABG pCO2 ABG pO2 ABG HCO3 ABG O2 Content ABG Base Excess ABG Methemoglobin Luis Felipe Test Hemoglobin Carboxyhemoglobin O2 Delivery Device Liter Flow Inspired O2 Critical Value Sodium 140 Potassium 4.0 Chloride 104 Carbon Dioxide 26.9 Anion Gap 9 BUN 18 Creatinine 0.71 Estimated GFR 78 L Random Glucose 102 Calcium 9.1 Magnesium 2.2 Total Bilirubin 0.7 AST 11 L ALT 11 Alkaline Phosphatase 157 H Troponin I Less than 0.02 L B-Natriuretic Peptide 171 H Total Protein 7.3 Albumin 3.4 - Imaging Impressions Chest X-Ray 05/13/18 11:14 CONCLUSION: Abnormal interstitial and airspace opacities bilaterally, as above. The pattern is suggestive of pulmonary edema. Caprini VTE Risk Assessment Caprini VTE Risk Assessment: Moderate/High Risk (score >= 2) Caprini Risk Assessment Model: Point Value = 1 Point Value = 2 Point Value = 3 Point Value = 5 Age 41-60 Minor surgery BMI > 25 kg/m2 Swollen legs Varicose veins or History of unexplained or recurrent spontaneous Oral contraceptives or hormone replacement Sepsis (< 1 month) Serious lung disease, including pneumonia (< 1 month) Abnormal pulmonary function Acute myocardial infarction Congestive heart failure (< 1 month) History of inflammatory bowel disease Medical patient at bed rest Age 61-74 Arthroscopic surgery Major open surgery (> 45 min) Laparoscopic surgery (> 45 min) Malignancy Confined to bed (> 72 hours) Immobilizing plaster cast Central venous access Age >= 75 History of VTE Family history of VTE Factor V Leiden Prothrombin [id number] Lupus anticoagulant Anticardiolipin antibodies Elevated serum homocysteine Heparin-induced thrombocytopenia Other congenital or acquired thrombophilia Stroke (< 1 month) Elective arthroplasty Hip, pelvis, or leg fracture Acute spinal cord injury (< 1 month) Prophylaxis Regimen: Total Risk Factor Score Risk Level Prophylaxis Regimen 0-1 Low Early ambulation 2 Moderate Order ONE of the following: *Sequential Compression Device (SCD) *Heparin 5000 units SQ BID 3-4 Higher Order ONE of the following medications: *Heparin 5000 units SQ TID *Enoxaparin/Lovenox 40 mg SQ daily (WT < 150 kg, CrCl > 30 mL/min) *Enoxaparin/Lovenox 30 mg SQ daily (WT < 150 kg, CrCl > 10-29 mL/min) *Enoxaparin/Lovenox 30 mg SQ BID (WT < 150 kg, CrCl > 30 mL/min) AND/OR *Sequential Compression Device (SCD) 5 or more Highest Order ONE of the following medications: *Heparin 5000 units SQ TID (Preferred with Epidurals) *Enoxaparin/Lovenox 40 mg SQ daily (WT < 150 kg, CrCl > 30 mL/min) *Enoxaparin/Lovenox 30 mg SQ daily (WT < 150 kg, CrCl > 10-29 mL/min) *Enoxaparin/Lovenox 30 mg SQ BID (WT < 150 kg, CrCl > 30 mL/min) AND *Sequential Compression Device (SCD) Assessment and Plan - Plan 88-year-old female admitted for shortness of breath and hypoxemia, x-ray demonstrates pulmonary edema. CHF is likely though she does not have a known history of this. With her history of possible MRSA UTI and possibility of lung infection she was covered empirically in the ER with vancomycin. We should continue this until we know more details about the nature of this infection. Pulmonary edema Most likely secondary to undiagnosed CHF We will get 2D echocardiogram and consult cardiology Continue with IV Lasix twice daily Reevaluate chest x-ray following adequate diuresis Follow on telemetry Upper respiratory infection Bronchitis versus pneumonia Covered empirically with vancomycin given questionable history of MRSA in urine Duo nebs as needed, incentive spirometry Continue supplemental oxygen h/o COPD Lung sounds are absent and wheezing following duo nebs and single dose of 125 mg Solu-Medrol in the ER Will provide duo nebs as needed, repeat Solu-Medrol dosing if wheezing recurs Nutrition Patient has adequate nutrition, but she is missing her lower denture/plate Will change cardiac diet to soft mechanical DVT prophylaxis Heparin
[2018-05-13] MEDS ORDERED: Vancomycin Consult Pharmacy OTHER PRN (16:30)
--- NOTE | 2018-05-13 18:19 | MB ---
cc: Rajeev Sánchez MD DATE: 05/13/2018 REASON FOR CONSULTATION: Shortness of breath. HISTORY OF PRESENT ILLNESS: The patient is a very pleasant 88-year-old woman who denies any cardiac history, presents with 2 days of shortness of breath. Apparently, she was also hypoxic off oxygen and initial workup was concerning for pulmonary edema as well as an elevated white count. However, her BNP was fairly low. She apparently has also been battling a urinary tract infection with E coli and MRSA. The patient tells me that she has been put on oxygen she feels much better. She has no residual shortness of breath while she is lying flat. No chest pain, lightheadedness, dizziness or syncope. PAST MEDICAL HISTORY: COPD, hypothyroidism, osteoarthritis. CURRENT MEDICATIONS: 1. Cardizem 120 mg daily. 2. Lexapro. 3. Lasix 40 mg IV b.i.d. 4. Prinivil 10 mg daily. 5. Vancomycin. ALLERGIES: NO KNOWN DRUG ALLERGIES. PHYSICAL EXAMINATION: VITAL SIGNS: Afebrile, pulse 81, respiratory rate 16, BP 117/60, saturating 94.3 liters. GENERAL: Pleasant, elderly woman, in no distress. NECK: No JVD. LUNGS: Decreased breath sounds at the bases. CARDIOVASCULAR: Regular rate and rhythm. A 2-3 out of 6 systolic ejection murmur is appreciated, loudest at the right upper sternal border. ABDOMEN: Benign. EXTREMITIES: No edema. LABORATORY DATA: White count 22.5, hematocrit 38.9, platelets 331. Sodium 140, potassium 4.0, chloride 104, bicarbonate 26.9, BUN 18, creatinine 0.71. Troponin is less than 0.02. BNP is only minimally elevated at 171. Chest x-ray showed possible pulmonary edema. EKG showed sinus bradycardia with occasional supraventricular premature complexes, LVH with associated ST and T changes. IMPRESSION: Shortness of breath. The patient has shortness of breath with some findings more consistent with an infectious etiology; however, she does have a notable murmur on exam, so she may have more significant valvular disease. Initial workup will include an echocardiogram and a formal rule out of myocardial infarction. We will continue her IV Lasix for now. However, her BNP was only mildly elevated, so I do not expect her to be in major congestive heart failure. Further recommendation based on her clinical course and the echocardiogram as above. Thank you again for the opportunity to participate in this patient's care. MD DARREN Tovar/sinan , 04:53 PM , 05:00 PM
[2018-05-13] MEDS: Heparin - SQ 10,000 UNITS/ML Vial SQ SCH (18:41)
[2018-05-14 04:08] LABS: Hematocrit 35.1 % (35.0-46.0); Hemoglobin 11.8 gm/dL (11.6-15.3); Mean Corpuscular HGB Conc 33.6 % (32.0-36.0); Mean Corpuscular Hemoglobin 31.2 pg (27.0-34.0); Mean Corpuscular Volume 92.8 fL (80.0-100.0); Mean Platelet Volume 8.8 fL (7.0-11.0); Platelet Count 306 th/mm3 (150-450); Red Blood Count 3.78 mil/mm3 (4.00-5.30); Red Cell Distribution Width 14.7 % (11.6-17.2); White Blood Count 15.6 th/mm3 (4.0-11.0)
[2018-05-14 04:31] LABS: Calcium 8.5 mg/dL (8.5-10.1); Carbon Dioxide 27.1 meq/L (21.0-32.0); Potassium 3.8 meq/L (3.5-5.1)
[2018-05-14] MEDS: Levothyroxine 88 MCG Tablet PO SCH (05:06)
[2018-05-14] MEDS: Heparin - SQ 10,000 UNITS/ML Vial SQ SCH ×2 (05:07→17:08)
[2018-05-14] MEDS: Lisinopril 10 MG Tablet PO SCH (08:03)
[2018-05-14] MEDS: dilTIAZem CD 120 MG Capsule PO SCH (08:03)
[2018-05-14] MEDS ORDERED: STIOLTO RESPIMAT INH SCH (09:00)
[2018-05-14] MEDS ORDERED: Vancomycin Inj 1 GM/200 ML PIGGYBACK IV.SIG SCH (09:00)
--- NOTE | 2018-05-14 09:52 | P.PN ---
Subjective Interval history: Says she is breathing a little better. Physical Exam Vital signs: Vital Signs 05/13/18 11:10 05/13/18 12:06 05/13/18 12:08 Temperature 98.9 F Pulse Rate 54 L 87 84 Respiratory Rate 15 18 20 Blood Pressure 140/74 140/74 Pulse Oximetry 92 L 94 L 05/13/18 12:09 05/13/18 12:29 05/13/18 16:00 Temperature 98.8 F Pulse Rate 86 81 Respiratory Rate 20 16 Blood Pressure 117/60 Pulse Oximetry 93 L 94 L 05/13/18 20:00 05/13/18 21:40 05/13/18 23:40 Temperature 98.3 F 97.9 F Pulse Rate 77 70 Respiratory Rate 18 18 Blood Pressure 122/59 L 124/55 L Pulse Oximetry 94 L 94 L 95 05/14/18 03:23 05/14/18 08:00 05/14/18 09:17 Temperature 98.1 F 98.3 F Pulse Rate 72 77 Respiratory Rate 18 16 Blood Pressure 136/63 135/60 Pulse Oximetry 95 95 95 Intake & Output 05/13/18 05/14/18 05/14/18 18:59 06:59 18:59 Intake Total 250 / 250 0 / 0 Balance 250 / 250 0 / 0 Weight 83.007 kg Intake: IV 250 / 250 Vancomycin Inj 1,000 MG In NS 250 / 250 Inj 250 ML @ 250 mls/hr IV.SIG ONCE ONE Rx#:[id number] Oral 0 / 0 Other: # Voids 1 2 Weight On Admission 83.007 kg - Constitutional no acute distress - Routine HEENT Exam Head: Present: normocephalic ENT: Present: mucous membranes moist - Routine Neck Exam Present: supple. Absent: JVD - Routine Respiratory Exam Present: CTA bilaterally - Routine Cardiovascular Exam Present: RRR, murmur Comments: 2-3/6 CANDICE - Routine Extremities Exam Absent: edema Results - Labs CBC & Chem 7: 05/14/18 03:02 05/14/18 03:02 Laboratory Results - last 24 hr 05/13/18 05/13/18 05/13/18 11:47 11:50 11:50 WBC 22.5 H RBC 4.07 Hgb 13.0 Hct 38.9 MCV 95.7 MCH 32.0 MCHC 33.5 RDW 14.9 Plt Count 331 MPV 8.4 Prelim Diff (Auto) Slide review pending Neut % (Auto) 62.3 Lymph % (Auto) 20.2 [place] % (Auto) 9.6 H Eos % (Auto) 7.6 H Baso % (Auto) 0.3 Neut # (Auto) 14.0 H Lymph # (Auto) 4.5 [place] # (Auto) 2.2 H Eos # (Auto) 1.7 H Baso # (Auto) 0.1 WBC Differential Manual diff final Seg Neuts % (Manual) 59 Band Neuts % (Manual) 1 Lymphocytes % (Manual) 21 Monocytes % (Manual) 8 Eosinophils % (Manual) 11 H Abs Neuts (Manual) 13.5 H Differential Comment . Platelet Estimate Normal Platelet Morphology Normal PT 10.7 D INR 1.1 APTT 27.4 Puncture Site Right radial Patient Temperature 98.6 O2 Saturation 90 ABG pH 7.46 H ABG pCO2 36 L ABG pO2 61 ABG HCO3 25 ABG O2 Content 15.8 ABG Base Excess 1.1 ABG Methemoglobin 1.1 Luis Felipe Test Present Hemoglobin 12.6 Carboxyhemoglobin 0.9 O2 Delivery Device Nasal cannula Liter Flow 2.00 Inspired O2 28 Critical Value No Sodium Potassium Chloride Carbon Dioxide Anion Gap BUN Creatinine Estimated GFR Random Glucose Lactic Acid Calcium Magnesium Total Bilirubin AST ALT Alkaline Phosphatase Troponin I B-Natriuretic Peptide Total Protein Albumin Urine Color Urine Clarity Urine pH Ur Specific [place] Urine Protein Urine Glucose (UA) Urine Ketones Urine Occult Blood Urine Nitrate Urine Bilirubin Urine Urobilinogen Ur Leukocyte Esterase Urine RBC Urine WBC Ur Squamous Epith Cells Urine Bacteria Hyaline Casts Urine Mucus Micro UA Comment Ur Microscopic Review Urine Culture Comments 05/13/18 05/13/18 05/13/18 11:50 11:50 15:10 WBC RBC Hgb Hct MCV MCH MCHC RDW Plt Count MPV Prelim Diff (Auto) Neut % (Auto) Lymph % (Auto) [place] % (Auto) Eos % (Auto) Baso % (Auto) Neut # (Auto) Lymph # (Auto) [place] # (Auto) Eos # (Auto) Baso # (Auto) WBC Differential Seg Neuts % (Manual) Band Neuts % (Manual) Lymphocytes % (Manual) Monocytes % (Manual) Eosinophils % (Manual) Abs Neuts (Manual) Differential Comment Platelet Estimate Platelet Morphology PT INR APTT Puncture Site Patient Temperature O2 Saturation ABG pH ABG pCO2 ABG pO2 ABG HCO3 ABG O2 Content ABG Base Excess ABG Methemoglobin Luis Felipe Test Hemoglobin Carboxyhemoglobin O2 Delivery Device Liter Flow Inspired O2 Critical Value Sodium 140 Potassium 4.0 Chloride 104 Carbon Dioxide 26.9 Anion Gap 9 BUN 18 Creatinine 0.71 Estimated GFR 78 L Random Glucose 102 Lactic Acid Calcium 9.1 Magnesium 2.2 Total Bilirubin 0.7 AST 11 L ALT 11 Alkaline Phosphatase 157 H Troponin I Less than 0.02 L B-Natriuretic Peptide 171 H Total Protein 7.3 Albumin 3.4 Urine Color Yellow Urine Clarity Hazy H Urine pH 5.0 Ur Specific [place] 1.011 Urine Protein Negative Urine Glucose (UA) Negative Urine Ketones Trace H Urine Occult Blood Negative Urine Nitrate Negative Urine Bilirubin Negative Urine Urobilinogen Less than 2 Ur Leukocyte Esterase Negative Urine RBC Less than 1 Urine WBC 1 Ur Squamous Epith Cells 22 Urine Bacteria Occasional H Hyaline Casts 9 Urine Mucus Few H Micro UA Comment Cath-culture ind Ur Microscopic Review Not Reportable Urine Culture Comments Cath-cult indicated 05/13/18 05/14/18 05/14/18 21:52 00:15 03:02 WBC 15.6 H RBC 3.78 L Hgb 11.8 Hct 35.1 MCV 92.8 MCH 31.2 MCHC 33.6 RDW 14.7 Plt Count 306 MPV 8.8 Prelim Diff (Auto) Neut % (Auto) Lymph % (Auto) [place] % (Auto) Eos % (Auto) Baso % (Auto) Neut # (Auto) Lymph # (Auto) [place] # (Auto) Eos # (Auto) Baso # (Auto) WBC Differential Seg Neuts % (Manual) Band Neuts % (Manual) Lymphocytes % (Manual) Monocytes % (Manual) Eosinophils % (Manual) Abs Neuts (Manual) Differential Comment Platelet Estimate Platelet Morphology PT INR APTT Puncture Site Patient Temperature O2 Saturation ABG pH ABG pCO2 ABG pO2 ABG HCO3 ABG O2 Content ABG Base Excess ABG Methemoglobin Luis Felipe Test Hemoglobin Carboxyhemoglobin O2 Delivery Device Liter Flow Inspired O2 Critical Value Sodium Potassium Chloride Carbon Dioxide Anion Gap BUN Creatinine Estimated GFR Random Glucose Lactic Acid 3.0 H 2.0 Calcium Magnesium Total Bilirubin AST ALT Alkaline Phosphatase Troponin I B-Natriuretic Peptide Total Protein Albumin Urine Color Urine Clarity Urine pH Ur Specific [place] Urine Protein Urine Glucose (UA) Urine Ketones Urine Occult Blood Urine Nitrate Urine Bilirubin Urine Urobilinogen Ur Leukocyte Esterase Urine RBC Urine WBC Ur Squamous Epith Cells Urine Bacteria Hyaline Casts Urine Mucus Micro UA Comment Ur Microscopic Review Urine Culture Comments 05/14/18 03:02 WBC RBC Hgb Hct MCV MCH MCHC RDW Plt Count MPV Prelim Diff (Auto) Neut % (Auto) Lymph % (Auto) [place] % (Auto) Eos % (Auto) Baso % (Auto) Neut # (Auto) Lymph # (Auto) [place] # (Auto) Eos # (Auto) Baso # (Auto) WBC Differential Seg Neuts % (Manual) Band Neuts % (Manual) Lymphocytes % (Manual) Monocytes % (Manual) Eosinophils % (Manual) Abs Neuts (Manual) Differential Comment Platelet Estimate Platelet Morphology PT INR APTT Puncture Site Patient Temperature O2 Saturation ABG pH ABG pCO2 ABG pO2 ABG HCO3 ABG O2 Content ABG Base Excess ABG Methemoglobin Luis Felipe Test Hemoglobin Carboxyhemoglobin O2 Delivery Device Liter Flow Inspired O2 Critical Value Sodium 137 Potassium 3.8 Chloride 99 Carbon Dioxide 27.1 Anion Gap 11 BUN 25 H Creatinine 0.70 Estimated GFR 79 L Random Glucose 166 H Lactic Acid Calcium 8.5 Magnesium Total Bilirubin AST ALT Alkaline Phosphatase Troponin I B-Natriuretic Peptide Total Protein Albumin Urine Color Urine Clarity Urine pH Ur Specific [place] Urine Protein Urine Glucose (UA) Urine Ketones Urine Occult Blood Urine Nitrate Urine Bilirubin Urine Urobilinogen Ur Leukocyte Esterase Urine RBC Urine WBC Ur Squamous Epith Cells Urine Bacteria Hyaline Casts Urine Mucus Micro UA Comment Ur Microscopic Review Urine Culture Comments Microbiology 05/13/18 11:50 Blood - Peripheral Aerobic Blood Culture - Preliminary gram positive cocci 05/13/18 11:56 Nasal Wash Influenza Types A,B Antigen - Final Negative for FLU A and B antigen Infection due to influenza A or B cannot be ruled out since the antigen present in the sample may be below the detection limit of the test. - Imaging Impressions Chest X-Ray 05/13/18 11:14 CONCLUSION: Abnormal interstitial and airspace opacities bilaterally, as above. The pattern is suggestive of pulmonary edema. Assessment and Plan - Assessment (1) Murmur, cardiac Code(s): R01.1 - Cardiac murmur, unspecified Status: Acute Plan: sounds like , possibly significant; echo pending (2) Acute dyspnea Code(s): R06.00 - Dyspnea, unspecified Status: Acute Plan: perhaps mild chf + copd, on lasix, will continue for now, echo pending; plan on changing to oral lasix tomorrow.
[2018-05-14] MEDS ORDERED: Benzonatate 100 MG Capsule PO PRN (12:26)
[2018-05-14] MEDS: Vancomycin Inj 1,250 MG in Sodium Chlor 0.9% Inj 250 ML IV.SIG SCH (14:45)
--- NOTE | 2018-05-14 17:04 | P.PNIM ---
Subjective Interval history: Patient states she is breathing a little easier today but that her cough has worsened. Physical Exam Vital signs: Vital Signs 05/13/18 20:00 05/13/18 21:40 05/13/18 23:40 Temperature 98.3 F 97.9 F Pulse Rate 77 70 Respiratory Rate 18 18 Blood Pressure 122/59 L 124/55 L Pulse Oximetry 94 L 94 L 95 05/14/18 03:23 05/14/18 08:00 05/14/18 09:17 Temperature 98.1 F 98.3 F Pulse Rate 72 77 Respiratory Rate 18 16 Blood Pressure 136/63 135/60 Pulse Oximetry 95 95 95 05/14/18 12:00 05/14/18 12:16 05/14/18 15:25 Temperature 99.0 F Pulse Rate 77 75 Respiratory Rate 16 18 Blood Pressure 142/65 H Pulse Oximetry 96 95 05/14/18 16:00 Temperature 98.1 F Pulse Rate 70 Respiratory Rate 14 Blood Pressure 141/64 H Pulse Oximetry 97 Intake & Output 05/13/18 05/14/18 05/14/18 18:59 06:59 18:59 Intake Total 250 / 250 0 / 0 515 / 515 Balance 250 / 250 0 / 0 515 / 515 Weight 83.007 kg Intake: IV 250 / 250 515 / 515 Vancomycin Inj 1,000 MG In NS 250 / 250 Inj 250 ML @ 250 mls/hr IV.SIG ONCE ONE Rx#:[id number] Vancomycin Inj 1,250 MG In NS 515 / 515 Inj 250 ML @ 250 mls/hr IV.SIG Q24H [facility] Rx#:[id number] Oral 0 / 0 Other: # Voids 1 2 Weight On Admission 83.007 kg Narrative: GENERAL: AAOx3, no acute distress, adequate nutrition SKIN: Warm and dry, no rashes. HEAD: Atraumatic. Normocephalic. EYES: Pupils equal, round, reactive to light. No scleral icterus. No injection or drainage. ENT: No nasal bleeding or discharge. Moist mucous membranes. Nonerythematous oropharynx. NECK: Trachea midline. No JVD. Thyroid size within normal limits. CARDIOVASCULAR: Regular rate and rhythm. 2/6 systolic ejection murmur., no gallops, no rubs. RESPIRATORY: Scattered crackles of edema bilaterally throughout both lungs, 15% improved. No wheezing. No accessory muscle use. GASTROINTESTINAL: Abdomen soft, non-tender, nondistended, normal active bowel sounds. Hepatic and splenic margins not palpable. MUSCULOSKELETAL: Extremities without clubbing or cyanosis. No obvious deformities. Wearing compressive stockings on lower extremities. NEUROLOGICAL: Awake and alert. No obvious cranial nerve deficits. Motor grossly within normal limits. No focal deficits. Five out of 5 muscle strength in the arms and legs. Normal speech. PSYCHIATRIC: Appropriate mood and affect; insight and judgment normal. Results - Labs CBC & Chem 7: 05/14/18 03:02 05/14/18 03:02 Laboratory Results - last 24 hr 05/13/18 05/14/18 05/14/18 21:52 00:15 03:02 WBC 15.6 H RBC 3.78 L Hgb 11.8 Hct 35.1 MCV 92.8 MCH 31.2 MCHC 33.6 RDW 14.7 Plt Count 306 MPV 8.8 Sodium Potassium Chloride Carbon Dioxide Anion Gap BUN Creatinine Estimated GFR Random Glucose Lactic Acid 3.0 H 2.0 Calcium 05/14/18 03:02 WBC RBC Hgb Hct MCV MCH MCHC RDW Plt Count MPV Sodium 137 Potassium 3.8 Chloride 99 Carbon Dioxide 27.1 Anion Gap 11 BUN 25 H Creatinine 0.70 Estimated GFR 79 L Random Glucose 166 H Lactic Acid Calcium 8.5 Microbiology 05/13/18 15:10 Catheterized Urine Urine Culture - Preliminary Immature growth - reincubate 05/13/18 11:50 Blood - Peripheral Aerobic Blood Culture - Preliminary gram positive cocci 05/13/18 11:50 Blood - Peripheral Anaerobic Blood Culture - Preliminary No growth in 1 day 05/13/18 11:58 Blood - Peripheral Aerobic Blood Culture - Preliminary No growth in 1 day 05/13/18 11:58 Blood - Peripheral Anaerobic Blood Culture - Preliminary No growth in 1 day Assessment and Plan - Plan 88-year-old female admitted for shortness of breath and hypoxemia, x-ray demonstrates pulmonary edema. CHF is likely though she does not have a known history of this. With her history of possible MRSA UTI and possibility of lung infection she was covered empirically in the ER with vancomycin. We should continue this until we know more details about the nature of this infection. Pulmonary edema Most likely secondary to undiagnosed CHF We will get 2D echocardiogram and consult cardiology Continue with IV Lasix twice daily Reevaluate chest x-ray following adequate diuresis Follow on telemetry Upper respiratory infection Bronchitis versus pneumonia Covered empirically with vancomycin given questionable history of MRSA in urine Duo nebs as needed, incentive spirometry, supplemental oxygen Initial blood cultures are growing out gram-positive cocci, further details to follow Urinary tract infection Positive for infection, cultures pending Empirically covered with vancomycin for history of MRSA in urine h/o COPD Lung sounds are absent and wheezing following duo nebs and single dose of 125 mg Solu-Medrol in the ER Will provide duo nebs as needed, repeat Solu-Medrol dosing if wheezing recurs Nutrition Patient has adequate nutrition, but she is missing her lower denture/plate Will change cardiac diet to soft mechanical DVT prophylaxis Heparin
[2018-05-15] MEDS: Heparin - SQ 10,000 UNITS/ML Vial SQ SCH ×2 (05:21→19:21)
[2018-05-15] MEDS: Levothyroxine 88 MCG Tablet PO SCH (05:22)
[2018-05-15 05:59] LABS: Hematocrit 34.2 % (35.0-46.0); Hemoglobin 11.3 gm/dL (11.6-15.3); Mean Platelet Volume 8.4 fL (7.0-11.0); Platelet Count 321 th/mm3 (150-450); Red Blood Count 3.64 mil/mm3 (4.00-5.30); Red Cell Distribution Width 14.7 % (11.6-17.2); White Blood Count 18.9 th/mm3 (4.0-11.0)
--- NOTE | 2018-05-15 09:17 | P.PN ---
Subjective Interval history: Feeling better, still having wet cough Physical Exam Vital signs: Vital Signs 05/14/18 09:17 05/14/18 12:00 05/14/18 12:16 Temperature 99.0 F Pulse Rate 77 75 Respiratory Rate 16 18 Blood Pressure 142/65 H Pulse Oximetry 95 96 05/14/18 15:25 05/14/18 16:00 05/14/18 19:46 Temperature 98.1 F 98.2 F Pulse Rate 70 68 Respiratory Rate 14 18 Blood Pressure 141/64 H 132/63 Pulse Oximetry 95 97 96 05/14/18 19:59 05/14/18 20:00 05/15/18 00:00 Temperature 98.0 F Pulse Rate 68 Respiratory Rate 18 Blood Pressure 136/64 Pulse Oximetry 96 97 97 05/15/18 04:00 05/15/18 07:23 Temperature 98.0 F Pulse Rate 68 Respiratory Rate 20 Blood Pressure 139/66 Pulse Oximetry 97 94 L Intake & Output 05/14/18 05/15/18 05/15/18 18:59 06:59 18:59 Intake Total 515 / 515 40 / 40 Output Total 1100 / 1100 Balance 515 / 515 -1060 / -1060 Weight 83.007 kg Intake: IV 515 / 515 Vancomycin Inj 1,250 MG In NS 515 / 515 Inj 250 ML @ 250 mls/hr IV.SIG Q24H [facility] Rx#:[id number] Oral 40 / 40 Output: Urine 1100 / 1100 Other: # Voids 2 # Incontinent Voids 2 - Constitutional no acute distress - Routine HEENT Exam Head: Present: normocephalic Eye: Present: EOMI ENT: Present: mucous membranes moist - Routine Neck Exam Absent: JVD - Routine Respiratory Exam Present: CTA bilaterally - Routine Cardiovascular Exam Present: RRR, murmur - Routine Extremities Exam Absent: edema Results - Labs CBC & Chem 7: 05/15/18 05:46 05/14/18 03:02 Laboratory Results - last 24 hr 05/15/18 05:46 WBC 18.9 H RBC 3.64 L Hgb 11.3 L Hct 34.2 L MCV 94.0 MCH 31.0 MCHC 33.0 RDW 14.7 Plt Count 321 MPV 8.4 Microbiology 05/13/18 15:10 Catheterized Urine Urine Culture - Preliminary Immature growth - reincubate 05/13/18 11:50 Blood - Peripheral Aerobic Blood Culture - Preliminary gram positive cocci 05/13/18 11:50 Blood - Peripheral Anaerobic Blood Culture - Preliminary No growth in 1 day 05/13/18 11:58 Blood - Peripheral Aerobic Blood Culture - Preliminary No growth in 1 day 05/13/18 11:58 Blood - Peripheral Anaerobic Blood Culture - Preliminary No growth in 1 day Assessment and Plan - Assessment (1) Murmur, cardiac Code(s): R01.1 - Status: Acute Plan: mild to mod by echo, will follow as outpt. (2) Acute dyspnea Code(s): R06.00 - Status: Acute Plan: perhaps mild chf + copd, on lasix, will change to oral - Plan stable cardiac siddiqi, will see her in office, will sign off, please call with questions.
--- NOTE | 2018-05-15 11:02 | XR ---
EXAM DATE: 05/15/2018 12:00 AM EDT AGE/SEX: 88 years / Female INDICATIONS: Cough. CLINICAL DATA: This is the patient's subsequent encounter. Patient reports that signs and symptoms h ave been present for 3 days and indicates a pain score of 0/10. MEDICAL/SURGICAL HISTORY: . Chronic obstructive pulmonary disease. Hypertension. Gastroesophage al reflux disease. Thyroid disease. Cerebrovascular accident. Breast cancer. . Tonsillectomy. Maste ctomy, left. Partial colectomy. Bilateral cataract removal. Cervical surgery. COMPARISON: [facility] – [place], CHEST 1V SINGLE AP, 05/13/2018. . FINDINGS: Heart is enlarged. There is interval improvement with much better aeration. Minimal bibasilar parench ymal changes persist worse on the left. No significant pleural effusion No pneumothorax. CONCLUSION: Interval improvement with less interstitial edema. Electronically signed by: Enrique Mendoza MD 05/15/2018 11:00 AM EDT
[2018-05-15] MEDS: Lisinopril 10 MG Tablet PO SCH (11:45)
[2018-05-15] MEDS: dilTIAZem CD 120 MG Capsule PO SCH (11:45)
--- NOTE | 2018-05-15 13:33 | P.PN ---
Subjective Interval history: Follow up for GPC bacteremia. Patient is resting in bed. She has cough and it is persistent. No fever, chills. Physical Exam Vital signs: Vital Signs 05/14/18 15:25 05/14/18 16:00 05/14/18 19:46 Temperature 98.1 F 98.2 F Pulse Rate 70 68 Respiratory Rate 14 18 Blood Pressure 141/64 H 132/63 Pulse Oximetry 95 97 96 05/14/18 19:59 05/14/18 20:00 05/15/18 00:00 Temperature 98.0 F Pulse Rate 68 Respiratory Rate 18 Blood Pressure 136/64 Pulse Oximetry 96 97 97 05/15/18 04:00 05/15/18 07:23 05/15/18 08:00 Temperature 98.0 F 97.6 F Pulse Rate 68 71 Respiratory Rate 20 18 Blood Pressure 139/66 138/65 Pulse Oximetry 97 94 L 96 Intake & Output 05/14/18 05/15/18 05/15/18 18:59 06:59 18:59 Intake Total 515 / 515 40 / 40 Output Total 1100 / 1100 Balance 515 / 515 -1060 / -1060 Weight 83.007 kg Intake: IV 515 / 515 Vancomycin Inj 1,250 MG In NS 515 / 515 Inj 250 ML @ 250 mls/hr IV.SIG Q24H [facility] Rx#:[id number] Oral 40 / 40 Output: Urine 1100 / 1100 Other: # Voids 2 # Incontinent Voids 2 Narrative: GENERAL: Alert, NAD. SKIN: Warm and dry. HEAD: Normocephalic. EYES: No scleral icterus. No injection or drainage. NECK: Supple, trachea midline. No JVD or lymphadenopathy. CARDIOVASCULAR: Regular rate and rhythm without murmurs, gallops, or rubs. RESPIRATORY: Moderate air entry. Coarse lung sounds in the posterior lung qiu. GASTROINTESTINAL: Abdomen soft, non-tender, nondistended. MUSCULOSKELETAL: No cyanosis, or edema. BACK: Nontender without obvious deformity. No CVA tenderness. Results - Labs CBC & Chem 7: 05/15/18 05:46 05/14/18 03:02 Laboratory Results - last 24 hr 05/15/18 05:46 WBC 18.9 H RBC 3.64 L Hgb 11.3 L Hct 34.2 L MCV 94.0 MCH 31.0 MCHC 33.0 RDW 14.7 Plt Count 321 MPV 8.4 Microbiology 05/13/18 11:50 Blood - Peripheral Aerobic Blood Culture - Preliminary Staphylococcus coag negative 05/13/18 11:50 Blood - Peripheral Anaerobic Blood Culture - Preliminary No growth in 2 days 05/13/18 11:58 Blood - Peripheral Aerobic Blood Culture - Preliminary No growth in 2 days 05/13/18 11:58 Blood - Peripheral Anaerobic Blood Culture - Preliminary gram positive cocci pleomorphic gram positive rods 05/13/18 15:10 Catheterized Urine Urine Culture - Final Lactobacillus species - Imaging Impressions Chest X-Ray 05/15/18 00:00 CONCLUSION: Interval improvement with less interstitial edema. Assessment and Plan - Plan Ms. Faria is a pleasant 88-year-old female admitted for shortness of breath and hypoxemia, x-ray demonstrates pulmonary edema. Cardiology followed patient. Blood culture grew GPC. Patient received IV lasix and later PO lasix per cardiology. Patient also underwent echocardiogram study on 05/15/2018. Acute pulmonary edema Possible congestive heart failure - echo report pending. Mild to moderate Aortic stenosis Hypertension -Patient received IV lasix. Currently on Lasix PO 20 mg Qday. -Continue Lisinopril 10mg Qday. Patient is also on long acting Diltiazem. Acute respiratory infection Probable COPD Exacerbation - Bronchitis versus pneumonia - CXR shows no consolidation, leukocytosis is worse - Will start patient empirically on Levaquin 750mg Qday. GPC bacteremia - Possible contamination. Patient is currently on Vancomycin - Will consult ID. Hypothyroidism - Continue levothyroxine 88 mcg daily. Full code. Heparin SQ.
--- NOTE | 2018-05-15 14:26 | ECHRPT ---
Indication: SHORTNESS OF BREATH CONCLUSIONS The left ventricular systolic function is normal with an estimated ejection fraction in the range of 55-60%. Normal left ventricular size. Wall thickness is normal. No regional wall motion abnormalities are present. Mild thickening of the mitral valve leaflets. Moderate mitral annular calcification. Mild mitral valve stenosis. Mitral valve mean gradient is 5 mmHg. The mitral valve area by Pressure Halftime Method is 81 cm. Diffuse calcification of the aortic valve. Mild aortic valve stenosis. Aortic valve area is 0.89 cm. Aortic valve mean gradient is 19 mmHg. Mild aortic valve regurgitation. Mild thickening of the tricuspid valve leaflets. There is moderate tricuspid regurgitation. The estimated pulmonary arterial pressure is 44.3 mmHg. BP: / HR: Rhythm: Sinus MEASUREMENTS (Male / Female) Normal Values Technical Quality:Good 2D ECHO LV Diastolic Diameter PLAX 4.4 cm 4.2 - 5.9 / 3.9 - 5.3 cm LV Systolic Diameter PLAX 3.1 cm IVS Diastolic Thickness 1.0 cm 0.6 - 1.0 / 0.6 - 0.9 cm LVPW Diastolic Thickness 1.1 cm 0.6 - 1.0 / 0.6 - 0.9 cm LV Relative Wall Thickness 0.5 LVOT Diameter 1.8 cm LA Systolic Diameter LX 3.7 cm 3.0 - 4.0 / 2.7 - 3.8 cm LV Ejection Fraction MOD 4C 58.0 % LV Ejection Fraction 4C AL 58.8 % M-MODE Aortic Root Diameter MM 1.9 cm LA Systolic Diameter MM 3.9 cm LA Ao Ratio MM 2.1 AV Cusp Separation MM 1.0 cm DOPPLER AV Peak Velocity 292.0 cm/s AV Peak Gradient 34.1 mmHg AV Mean Gradient 19.0 mmHg AV Velocity Time Integral 70.9 cm AI Peak Velocity 312.0 cm/s AI Peak Gradient 38.9 mmHg AI Pressure Half Time 620.0 ms LVOT Peak Velocity 110.0 cm/s LVOT Peak Gradient 4.8 mmHg LVOT Velocity Time Integral 24.9 cm AV Area Cont Eq vti 0.9 cm AV Area Cont Eq pk 1.0 cm MV Peak Velocity 167.0 cm/s MV Peak Gradient 11.2 mmHg MV Mean Velocity 103.0 cm/s MV Mean Gradient 5.0 mmHg MV Area PHT 2.4 cm Mitral E Point Velocity 118.0 cm/s Mitral A Point Velocity 149.0 cm/s Mitral E to A Ratio 0.8 LV E' Lateral Velocity 5.9 cm/s Mitral E to LV E' Lateral Ratio 19.8 LV E' Septal Velocity 3.9 cm/s Mitral E to LV E' Septal Ratio 30.3 TR Peak Velocity 293.0 cm/s TR Peak Gradient 34.3 mmHg Right Atrial Pressure 10.0 mmHg Pulmonary Artery Systolic Pressu 44.3 mmHg Right Ventricular Systolic Press 44.3 mmHg PV Peak Velocity 111.0 cm/s PV Peak Gradient 4.9 mmHg FINDINGS LEFT VENTRICLE The left ventricular systolic function is normal with an estimated ejection fraction in the range of 55-60%. Normal left ventricular size. Wall thickness is normal. No regional wall motion abnormalities are present. RIGHT VENTRICLE Normal right ventricular size and systolic function. LEFT ATRIUM The left atrial size is normal. RIGHT ATRIUM The right atrial size is normal. ATRIAL SEPTUM Normal atrial septal thickness without atrial level shunting by limited color doppler interrogation. AORTA The aortic root and proximal ascending aorta are normal in size on limited imaging. MITRAL VALVE Mild thickening of the mitral valve leaflets. Moderate mitral annular calcification. Mild mitral valve stenosis. Mitral valve mean gradient is 5 mmHg. The mitral valve area by Pressure Halftime Method is 81 cm. AORTIC VALVE Trileaflet aortic valve. Diffuse calcification of the aortic valve. Mild aortic valve stenosis. Aortic valve area is 0.89 cm. Aortic valve mean gradient is 19 mmHg. Mild aortic valve regurgitation. TRICUSPID VALVE Mild thickening of the tricuspid valve leaflets. There is moderate tricuspid regurgitation. The estimated pulmonary arterial pressure is 44.3 mmHg. PULMONARY VALVE No pulmonary valve regurgitation or stenosis. VESSELS The inferior vena cava is normal in size. PERICARDIUM No pericardial effusion. Serge Pitts MD, FACC, FSCAI (Electronically Signed) Final Date:15 May 2018 14:25
[2018-05-15] MEDS ORDERED: Pharmacy Ordered Lab Info OTHER ONE (14:45)
[2018-05-15 15:20] LABS: Calcium 8.6 mg/dL (8.5-10.1); Carbon Dioxide 32.7 meq/L (21.0-32.0); Potassium 3.6 meq/L (3.5-5.1)
[2018-05-15 15:21] LABS: Vancomycin,Trough 8.4 mcg/mL (5.0-10.0)
[2018-05-15] MEDS: Vancomycin Inj 1,250 MG in Sodium Chlor 0.9% Inj 250 ML IV.SIG SCH (16:39)
[2018-05-15] MEDS: levoFLOXacin 750 MG Tablet PO SCH (16:40)
--- NOTE | 2018-05-15 17:26 | P.CONID ---
History of Present Illness Service: Infectious disease Consult date: 05/15/18 Requesting Physician: Gaby Ulrich Reason for Consult: Evaluate patient with sepsis and persistent leukocytosis Primary Care Provider: UNKNOWN History of Present Illness: Patient seen and examined. Records reviewed. Patient is an 88-year-old female, lives in an [facility], brought into the hospital for further evaluation of shortness of breath. She also gives a history of congestion and cough and she is bringing up some yellow to green phlegm. She denies any fever or chills. She has not had any chest pain. She denies any nausea or vomiting. She has had problem with recurrent UTI, and has had some dysuria. Since admission she has not been febrile. Her white count was initially greater than 20,000, and it still 18,000. Chest x-ray on admission is showing pulmonary edema. Repeat chest x-ray showed improvement in interstitial edema. Blood cultures were done on admission, and one blood culture has coag negative staph, the other set of blood culture has pleomorphic gram-positive drew and gram-positive cocci. Her urine culture is growing lactobacillus, and her urinalysis only showed some mild pyuria. She has had cardiac workup and she has some valvular abnormality. Cardiology saw the patient and felt that she probably has some mild CHF on top of her COPD. Infectious disease consultation has been requested to assist with evaluation and treatment. Review of Systems Constitutional: Reports lack of energy, Denies chills, Denies fever(s), Denies night sweats Eyes: Denies discharge, Denies dry eyes Ears, Nose, Mouth, and Throat: Denies difficulty swallowing, Denies dizziness, Denies dry mouth, Denies ear discharge, Denies ear pain, Denies nasal discharge , Denies pain with swallowing, Denies sore throat Cardiovascular: Reports shortness of breath, Denies chest pain Respiratory: Reports chest congestion, Reports cough, Reports shortness of breath, Denies coughing up blood Gastrointestinal: Denies abdominal pain, Denies loose stools, Denies nausea, Denies pain with swallowing, Denies vomiting Genitourinary: Reports painful urination, Denies blood in urine, Denies difficulty starting urination, Denies difficulty urinating, Denies dribbling after urination Musculoskeletal: Denies back pain, Denies joint pain, Denies joint swelling Skin/Breast: Denies rash, Denies sores Neurologic: Denies dizziness PMFSH - History History Provided By: Patient - Medical History Medical History: Medical History (Last Reviewed 05/15/18 @ 17:21 by Celeste Vasquez MD) (atherosclerosis) COPD (chronic obstructive pulmonary disease) Decubital ulcer Hypothyroid Osteoarthritis - Family History Family History: Family History (Last Updated 05/13/18 @ 15:49 by Roman Krueger MD) Other Hypertension - Tobacco History Second Hand Smoke Exposure: No Smoking Status: Former smoker - Alcohol History How Often Do You Have a Drink Containing Alcohol: 2 to 4 times a month - Substance Use History Substance History: No History of Abuse - Travel History Recent Travel in the [place] Within the Last 8 Weeks: No Recent Travel Out of the Country Within the Last 8 Weeks: No - Immunization History Tetanus Immunization: Unsure Medications and Allergies Active Medications: Active Medications Acetaminophen (Tylenol) 650 mg PO Q4H PRN PRN Reason: Temp > 100.4 Al Hydroxide/Mg Hydroxide (Milk Of [place] Liq) 30 ml PO Q12H PRN PRN Reason: Mild Constipation Albuterol (Duoneb Neb (Prn)) 1 ampul NEB Q4HR NEB PRN PRN Reason: SHORTNESS OF BREATH/WHEEZING Benzonatate (Tessalon Perles) 200 mg PO Q8H PRN PRN Reason: COUGH Last Admin: 05/14/18 12:34 Dose: 200 mg Diltiazem HCl (Cardizem Cd 24hr) 120 mg PO DAILY [facility] Last Admin: 05/15/18 11:45 Dose: 120 mg Escitalopram Oxalate (Lexapro) 20 mg PO DAILY [facility] Last Admin: 05/15/18 11:46 Dose: 20 mg Furosemide (Lasix) 20 mg PO DAILY [facility] Heparin Sodium (Porcine) (Heparin Inj) 5,000 units SQ Q12H [facility] Last Admin: 05/15/18 05:21 Dose: 5,000 units Vancomycin HCl 1,250 mg/ (Sodium Chloride) 262.5 mls @ 250 mls/hr IV.SIG Q24H [facility] Last Admin: 05/15/18 16:39 Dose: 500 mls/hr Levofloxacin (Levaquin) 750 mg PO DAILY@1100 [facility] Last Admin: 05/15/18 16:40 Dose: 750 mg Levothyroxine Sodium (Synthroid) 88 mcg PO DAILY@0600 [facility] Last Admin: 05/15/18 05:22 Dose: 88 mcg Lisinopril (Prinivil) 10 mg PO DAILY [facility] Last Admin: 05/15/18 11:45 Dose: 10 mg Miscellaneous Information ([facility] Ordered Lab Info) 0 each OTHER ONCE ONE Stop: 05/17/18 14:46 Ondansetron HCl (Zofran Inj) 4 mg IV.PUSH Q6H PRN PRN Reason: NAUSEA OR VOMITING Patient Own Medication[Stiolto Respimat] 0 each INH DAILY [facility] Pharmacy Profile Note (Vancomycin Consult Pharmacy) 1 each OTHER UNSCH PRN PRN Reason: Pharmacy to dose Ropinirole HCl (Requip) 0.25 mg PO QPM [facility] Last Admin: 05/14/18 17:08 Dose: 0.25 mg Allergies Allergy/AdvReac Type Severity Reaction Status Date / Time *MDRO Multi-Drug Resistant Allergy Unknown Uncoded 11/02/17 17:24 Organism Home Medications Medication Instructions Recorded Confirmed Type acetaminophen [Tylenol Arthritis 650 mg PO Q4HR PRN 04/14/18 05/13/18 History Pain] albuterol sulfate [Ventolin HFA] 1 puff INHALATION Q4-6H PRN 04/14/18 05/13/18 History ascorbic acid (vitamin C) [Vitamin 500 mg PO DAILY 04/14/18 05/13/18 History C] bacillus coagulans-inulin 1 cap PO DAILY 04/14/18 05/13/18 History [Probiotic Formula (inulin)] calcium carbonate-vitamin D3 1 tab PO DAILY 04/14/18 05/13/18 History [Calcium 600 + D(3)] diltiazem HCl 120 mg PO DAILY 04/14/18 05/13/18 History escitalopram oxalate [Lexapro] 20 mg PO DAILY 04/14/18 05/13/18 History levothyroxine 88 mcg PO DAILY 04/14/18 05/13/18 History lisinopril 10 mg PO DAILY 04/14/18 05/13/18 History loperamide 2 mg PO Q12HR PRN 04/14/18 05/13/18 History loratadine [Claritin] 10 mg PO DAILY 04/14/18 05/13/18 History meclizine 25 mg PO TID 04/14/18 05/13/18 History meloxicam [Mobic] 7.5 mg PO DAILY 04/14/18 05/13/18 History pravastatin 20 mg PO HS 04/14/18 05/13/18 History ropinirole [Requip] 0.25 mg PO QPM 04/14/18 05/13/18 History tiotropium-olodaterol [Stiolto 1 puff INHALATION DAILY 04/14/18 05/13/18 History Respimat] Exam Vital signs: Vital Signs 05/14/18 19:46 05/14/18 19:59 05/14/18 20:00 Temperature 98.2 F Pulse Rate 68 Respiratory Rate 18 Blood Pressure 132/63 Pulse Oximetry 96 96 97 05/15/18 00:00 05/15/18 04:00 05/15/18 07:23 Temperature 98.0 F 98.0 F Pulse Rate 68 68 Respiratory Rate 18 20 Blood Pressure 136/64 139/66 Pulse Oximetry 97 97 94 L 05/15/18 08:00 05/15/18 12:00 05/15/18 16:00 Temperature 97.6 F 97.7 F Pulse Rate 71 70 63 Respiratory Rate 18 18 18 Blood Pressure 138/65 138/65 138/63 Pulse Oximetry 96 96 97 Intake & Output 05/14/18 05/15/18 05/15/18 18:59 06:59 18:59 Intake Total 515 / 515 40 / 40 Output Total 1100 / 1100 Balance 515 / 515 -1060 / -1060 Weight 83.007 kg Intake: IV 515 / 515 Vancomycin Inj 1,250 MG In NS 515 / 515 Inj 250 ML @ 250 mls/hr IV.SIG Q24H [facility] Rx#:[id number] Oral 40 / 40 Output: Urine 1100 / 1100 Other: # Voids 2 # Incontinent Voids 2 Narrative: Physical Examination GENERAL: Patient is a well-nourished, well-developed female, awake and alert , not in respiratory distress. SKIN: Cool and dry. No generalized rash, no ecchymoses and no evidence of embolic lesions. HEAD: Atraumatic. Normocephalic. No temporal wasting, or tenderness. EYES: [place] conjunctiva. No petechia or hemorrhage. Pupils equal, round and reactive to light. Extraocular movements full and intact. No scleral icterus. No injection or drainage. EARS, NOSE AND THROAT: Nose without bleeding or purulent nasal discharge. No sinus tenderness. Mucous membranes pink and moist. No oral lesions noted. No exudate. No oral thrush. NECK: Trachea midline. Supple and not tender, no meningeal signs CARDIOVASCULAR: Regular rate and rhythm. Soft murmur at RPSB. RESPIRATORY: Rales at the bases, no E to A changes ABDOMEN: Soft, non-tender, nondistended. Bowel sounds present and normoactive. No guarding. No rebound. No organomegaly. EXTREMITIES: No clubbing, cyanosis, or edema.No joint effusion, has good ROM. No calf tenderness. Well perfused and warm. NEUROLOGICAL: Awake and alert. Cranial nerves grossly intact. Motor grossly within normal limits. PSYCHIATRIC: Normal affect, calm and cooperative. LINE: No evidence of infection Results - Labs CBC & Chem 7: 05/15/18 05:46 05/15/18 14:40 Labs: Laboratory Results - last 24 hr 05/15/18 05/15/18 05:46 14:40 WBC 18.9 H RBC 3.64 L Hgb 11.3 L Hct 34.2 L MCV 94.0 MCH 31.0 MCHC 33.0 RDW 14.7 Plt Count 321 MPV 8.4 Sodium 141 Potassium 3.6 Chloride 101 Carbon Dioxide 32.7 H Anion Gap 7 BUN 30 H Creatinine 0.79 Estimated GFR 69 L Random Glucose 132 H Calcium 8.6 Vancomycin Trough 8.4 - Imaging Impressions Chest X-Ray 05/15/18 00:00 CONCLUSION: Interval improvement with less interstitial edema. Assessment and Plan - Plan Impression (+) BC - ?real vs contaminant - has Coag Neg Staph in one and the other with GPR and GPC SOB - CHF likely, CXr improved fairly quickly so has component of fluid - COPD +/- PNA UTI - has symptoms and has mild pyuria on her UA Recommendation Repeat 2 BC US of kidney to eval obstruction Urine legio and pneumo Ag Follow C/S - BC and sputum Continue Levaquin Continue vancomycin I will determine course of Abx once work-up is completed Monitor progress I will follow along with you Thank you for this consultation
--- NOTE | 2018-05-15 19:01 | US ---
EXAM DATE: 05/15/2018 12:00 AM EDT AGE/SEX: 88 years / Female INDICATIONS: Abnormal lab values. CLINICAL DATA: This is the patient's initial encounter. Patient reports that signs and symptoms have been present for 1 day and indicates a pain score of 0/10. MEDICAL/SURGICAL HISTORY: Chronic obstructive pulmonary disease. Hypothyroidism. Atheroscleros is. Diabetic ulcer. Osteoarthritis. None. COMPARISON: [facility], CT ABDOMEN & PELVIS W CONTRAST, 11/02/2017. . MEASUREMENTS: Right Kidney:__9.6 x 4.2 x 4.2 cm Left Kidney:__9.3 x 3.0 x 4.0 cm FINDINGS: Right Kidney: Increased echotexture. No mass or hydronephrosis. Left Kidney: Increased echotexture. No mass or hydronephrosis. Bladder: Within normal limits given the degree of distension. CONCLUSION: 1. Small and echogenic kidneys typical of chronic parenchymal disease. 2. No obstructive uropathy or other acute abnormality demonstrated. Electronically signed by: Manuel De León MD 05/15/2018 7:00 PM EDT
[2018-05-16] MEDS: Levothyroxine 88 MCG Tablet PO SCH (06:18)
[2018-05-16] MEDS: Heparin - SQ 10,000 UNITS/ML Vial SQ SCH ×2 (06:18→17:49)
[2018-05-16 08:37] LABS: Baso % (Auto) 0.4 % (0.0-2.0); Eos # (Auto) 1.9 th/mm3 (0.0-0.4); Eos % (Auto) 16.4 % (0.0-4.0); Hematocrit 35.3 % (35.0-46.0); Hemoglobin 11.5 gm/dL (11.6-15.3); Lymph # (Auto) 2.4 th/mm3 (1.0-4.8); Lymph % (Auto) 20.9 % (9.0-44.0); Mean Corpuscular HGB Conc 32.5 % (32.0-36.0); Mean Corpuscular Hemoglobin 30.9 pg (27.0-34.0); Mean Corpuscular Volume 95.1 fL (80.0-100.0); Mean Platelet Volume 8.3 fL (7.0-11.0); Mono # (Auto) 1.3 th/mm3 (0.0-0.9); Mono % (Auto) 11.5 % (0.0-8.0); Neut # (Auto) 5.9 th/mm3 (1.8-7.7); Neut % (Auto) 50.8 % (16.0-70.0); Platelet Count 303 th/mm3 (150-450); Red Blood Count 3.71 mil/mm3 (4.00-5.30); Red Cell Distribution Width 14.9 % (11.6-17.2); White Blood Count 11.5 th/mm3 (4.0-11.0)
--- NOTE | 2018-05-16 08:45 | P.PN ---
Subjective Interval history: Follow up for GPC bacteremia, possible upper respiratory infection. Patient was seen once in the AM. She was doing well. No fever, chills. No acute concerns. However, later in the day, she started feeling very uncomfortable. She complains of constipation and abdominal pain. Daughter is at bedside. Physical Exam Vital signs: Vital Signs 05/15/18 12:00 05/15/18 16:00 05/15/18 20:00 Temperature 97.7 F 97.7 F Pulse Rate 70 63 66 Respiratory Rate 18 18 18 Blood Pressure 138/65 138/63 135/62 Pulse Oximetry 96 97 94 L 05/16/18 00:00 05/16/18 02:59 05/16/18 04:00 Temperature 97.9 F 97.5 F L Pulse Rate 66 65 68 Respiratory Rate 20 20 Blood Pressure 151/68 H 175/78 H Pulse Oximetry 95 05/16/18 08:20 Temperature 97.6 F Pulse Rate 64 Respiratory Rate 20 Blood Pressure 174/77 H Pulse Oximetry 95 Intake & Output 05/15/18 05/16/18 05/16/18 18:59 06:59 18:59 Intake Total 600 / 600 322.5 / 322.5 Output Total 950 / 950 Balance 600 / 600 -627.5 / -627.5 Intake: IV 262.5 / 262.5 Vancomycin Inj 1,250 MG In NS 262.5 / 262.5 Inj 250 ML @ 250 mls/hr IV.SIG Q24H [facility] Rx#:[id number] Oral 600 / 600 60 / 60 Oral Supplement 0 / 0 Output: Urine 950 / 950 Narrative: GENERAL: Alert, Mild distress when I evaluated patient in the afternoon. SKIN: Warm and dry. HEAD: Normocephalic. EYES: No scleral icterus. No injection or drainage. NECK: Supple, trachea midline. No JVD or lymphadenopathy. CARDIOVASCULAR: Regular rate and rhythm without murmurs, gallops, or rubs. RESPIRATORY: Breath sounds equal bilaterally. No accessory muscle use. GASTROINTESTINAL: Abdomen soft, Tender to palpation, nondistended. MUSCULOSKELETAL: No cyanosis, or edema. BACK: Nontender without obvious deformity. No CVA tenderness. Results - Labs CBC & Chem 7: 05/16/18 08:15 05/15/18 14:40 Laboratory Results - last 24 hr 05/15/18 05/16/18 14:40 08:15 WBC 11.5 H RBC 3.71 L Hgb 11.5 L Hct 35.3 MCV 95.1 MCH 30.9 MCHC 32.5 RDW 14.9 Plt Count 303 MPV 8.3 Prelim Diff (Auto) Slide review pending Neut % (Auto) 50.8 Lymph % (Auto) 20.9 Lynn % (Auto) 11.5 H Eos % (Auto) 16.4 H Baso % (Auto) 0.4 Neut # (Auto) 5.9 Lymph # (Auto) 2.4 Lynn # (Auto) 1.3 H Eos # (Auto) 1.9 H Baso # (Auto) 0.0 Differential Comment . Sodium 141 Potassium 3.6 Chloride 101 Carbon Dioxide 32.7 H Anion Gap 7 BUN 30 H Creatinine 0.79 Estimated GFR 69 L Random Glucose 132 H Calcium 8.6 Vancomycin Trough 8.4 Microbiology 05/13/18 11:50 Blood - Peripheral Aerobic Blood Culture - Preliminary Staphylococcus coag negative 05/13/18 11:50 Blood - Peripheral Anaerobic Blood Culture - Preliminary No growth in 2 days 05/13/18 11:58 Blood - Peripheral Aerobic Blood Culture - Preliminary No growth in 2 days 05/13/18 11:58 Blood - Peripheral Anaerobic Blood Culture - Preliminary gram positive cocci pleomorphic gram positive rods 05/13/18 15:10 Catheterized Urine Urine Culture - Final Lactobacillus species - Imaging Impressions Abdomen/Bladder Ultrasound 05/15/18 00:00 CONCLUSION: 1. Small and echogenic kidneys typical of chronic parenchymal disease. 2. No obstructive uropathy or other acute abnormality demonstrated. Chest X-Ray 05/15/18 00:00 CONCLUSION: Interval improvement with less interstitial edema. Assessment and Plan - Plan Ms. Faria is a pleasant 88-year-old female admitted for shortness of breath and hypoxemia, x-ray demonstrates pulmonary edema. Cardiology followed patient. Blood culture grew GPC. Patient received IV lasix and later PO lasix per cardiology. Patient also underwent echocardiogram study on 05/15/2018. Acute pulmonary edema Possible congestive heart failure - echo report pending. Mild to moderate Aortic stenosis Hypertension -Currently on Lasix PO 20 mg Qday. -Continue Lisinopril 10mg Qday. Patient is also on long acting Diltiazem. Constipation - Patient is very uncomfortable. - Milk of Mag given. Will give suppository if needed. - Obtain KUB. Acute respiratory infection Probable COPD Exacerbation - Bronchitis versus pneumonia - CXR shows no consolidation, leukocytosis is worse - Continue Levaquin 750mg Qday. GPC bacteremia - Possible contamination. Patient is currently on Vancomycin - Appreciate ID input. Currently on Vanc and Levaquin. - Blood cx from 05/15/2018 so far negative. Echo negative for any vegetation. Hypothyroidism - Continue levothyroxine 88 mcg daily. Full code. Heparin SQ.
[2018-05-16 09:16] LABS: Eosinophils 17 % (0-4); Lymphocytes 20 % (9-44); Metamyelocytes 1 % (0-1); Monocytes 5 % (0-8)
[2018-05-16 09:17] LABS: Platelet Estimate Normal (Normal); Platelet Morphology Normal (Normal); RBC Morphology Normal (Normal)
[2018-05-16] MEDS: Furosemide 20 MG Tablet PO SCH (09:36)
[2018-05-16] MEDS: Lisinopril 10 MG Tablet PO SCH (09:36)
[2018-05-16] MEDS: dilTIAZem CD 120 MG Capsule PO SCH (09:37)
[2018-05-16] MEDS: levoFLOXacin 750 MG Tablet PO SCH (11:56)
[2018-05-16] MEDS ORDERED: Bisacodyl 10 MG Supp RECTAL PRN (13:49)
--- NOTE | 2018-05-16 14:23 | XR ---
EXAM DATE: 05/16/2018 12:00 AM EDT AGE/SEX: 88 years / Female INDICATIONS: Constipation. CLINICAL DATA: This is the patient's initial encounter. Patient reports that signs and symptoms have been present for 3 days and indicates a pain score of 10/10. MEDICAL/SURGICAL HISTORY: Hypertension. Chronic obstructive pulmonary disease. Gastroesophage al reflux disease. thyroid disease, breast ca Tonsillectomy. Mastectomy, left. partial colectomy, c- spine surgery COMPARISON: No prior exams available for comparison. FINDINGS: 2 AP views of the abdomen and pelvis were obtained and demonstrate gas and stool noted segmentally:. There is no evidence of free air or mass effect. Bony structures are intact with scoliosis and degen erative change in the lower thoracic and lumbar spine. Overlying electrocardiogram leads. CONCLUSION: Unremarkable bowel gas pattern. Electronically signed by: Jack Reza MD 05/16/2018 2:22 PM EDT
[2018-05-16] MEDS: Vancomycin Inj 1,250 MG in Sodium Chlor 0.9% Inj 250 ML IV.SIG SCH (16:21)
[2018-05-16] MEDS ORDERED: Sod Phosphate/Sod Biphosphate (Adult) Enema 133 ML Bottle RECTAL ONE (16:30)
[2018-05-16] MEDS ORDERED: Magnesium Citrate Liq 300 ML Bottle PO ONE (17:18)
[2018-05-16 23:10] VITALS: RESP 16
[2018-05-17] MEDS: Heparin - SQ 10,000 UNITS/ML Vial SQ SCH ×2 (05:10→18:06)
[2018-05-17] MEDS: Levothyroxine 88 MCG Tablet PO SCH (05:10)
[2018-05-17] MEDS: Lisinopril 10 MG Tablet PO SCH (08:58)
[2018-05-17] MEDS: dilTIAZem CD 120 MG Capsule PO SCH (08:59)
[2018-05-17] MEDS: Furosemide 20 MG Tablet PO SCH (08:59)
[2018-05-17] MEDS: levoFLOXacin 750 MG Tablet PO SCH (11:40)
[2018-05-17] MEDS ORDERED: Pharmacy Ordered Lab Info OTHER ONE (14:45)
--- NOTE | 2018-05-17 14:55 | P.PN ---
Subjective Interval history: Follow up for possible upper respiratory infection. Patient is currently doing well. She is resting in bed. Denies any chest pain, shortness of breath, abdominal pain, fever or chills. She reports better appetite today. She had bowel movements yesterday and today. Physical Exam Vital signs: Vital Signs 05/16/18 19:50 05/16/18 23:07 05/17/18 04:00 Temperature 97.8 F 97.6 F Pulse Rate 83 80 74 Respiratory Rate 16 16 Blood Pressure 144/77 H 170/85 H Pulse Oximetry 90 L 94 L 05/17/18 08:00 05/17/18 12:00 05/17/18 13:41 Temperature 97.8 F 98.7 F Pulse Rate 71 67 Respiratory Rate 16 16 Blood Pressure 163/78 H 116/58 L Pulse Oximetry 96 94 L 93 L Intake & Output 05/16/18 05/17/18 05/17/18 18:59 06:59 18:59 Intake Total 762.5 / 762.5 240 / 240 Balance 762.5 / 762.5 240 / 240 Intake: IV 262.5 / 262.5 Vancomycin Inj 1,250 MG In NS 262.5 / 262.5 Inj 250 ML @ 250 mls/hr IV.SIG Q24H [facility] Rx#:[id number] Oral 500 / 500 240 / 240 Other: # Urine Diapers 1 Date of Last Bowel Movement 05/16/18 # Bowel Movements 3 Narrative: GENERAL: Alert, NAD. SKIN: Warm and dry. HEAD: Normocephalic. EYES: No scleral icterus. No injection or drainage. NECK: Supple, trachea midline. No JVD or lymphadenopathy. CARDIOVASCULAR: Regular rate and rhythm without murmurs, gallops, or rubs. RESPIRATORY: Breath sounds equal bilaterally. No accessory muscle use. GASTROINTESTINAL: Abdomen soft, Tender to palpation, nondistended. MUSCULOSKELETAL: No cyanosis, or edema. BACK: Nontender without obvious deformity. No CVA tenderness. Results - Labs CBC & Chem 7: 05/16/18 08:15 05/15/18 14:40 Microbiology 05/13/18 11:58 Blood - Peripheral Aerobic Blood Culture - Final pleomorphic gram positive rods 05/13/18 11:58 Blood - Peripheral Anaerobic Blood Culture - Final Staphylococcus epidermidis pleomorphic gram positive rods 05/17/18 10:00 Urine - Random Urine Streptococcus pneumoniae Antigen (M - Final Presumptive negative for streptococcus pneumoniae antigen, suggesting no current or recent infection. Infection due to Streptococcus pneumoniae cannot be ruled out since the antigen present in the sample may be below the detection limit of the test. 05/17/18 10:00 Urine - Random Urine Legionella Antigen - Final Presumptive negative for Legionella pneumophila serogroup 1 antigen in urine, suggesting no recent or recurrent infection. Infection due to Legionella cannot be ruled out since other serogroups and species may cause disease, antigen may not be present in urine in early infection, and the level of antigen present in the urine may be below the detection limit of the test. 05/15/18 19:30 Blood - Peripheral Aerobic Blood Culture - Preliminary No growth in 2 days 05/15/18 19:30 Blood - Peripheral Anaerobic Blood Culture - Preliminary No growth in 2 days 05/15/18 19:00 Blood - Peripheral Aerobic Blood Culture - Preliminary No growth in 2 days 05/15/18 19:00 Blood - Peripheral Anaerobic Blood Culture - Preliminary No growth in 2 days 05/13/18 11:50 Blood - Peripheral Aerobic Blood Culture - Final Staphylococcus haemolyticus 05/13/18 11:50 Blood - Peripheral Anaerobic Blood Culture - Preliminary No growth in 4 days - Imaging Chest X-Ray 05/13/18 11:14 CONCLUSION: Abnormal interstitial and airspace opacities bilaterally, as above. The pattern is suggestive of pulmonary edema. Abdomen/Bladder Ultrasound 05/15/18 00:00 CONCLUSION: 1. Small and echogenic kidneys typical of chronic parenchymal disease. 2. No obstructive uropathy or other acute abnormality demonstrated. Chest X-Ray 05/15/18 00:00 CONCLUSION: Interval improvement with less interstitial edema. Abdomen X-Ray 05/16/18 00:00 CONCLUSION: Unremarkable bowel gas pattern. - Procedures Echo 05/15/2018 The left ventricular systolic function is normal with an estimated ejection fraction in the range of 55-60%. Normal left ventricular size. Wall thickness is normal. No regional wall motion abnormalities are present. Mild thickening of the mitral valve leaflets. Moderate mitral annular calcification. Mild mitral valve stenosis. Mitral valve mean gradient is 5 mmHg. The mitral valve area by Pressure Halftime Method is 81 cm. Diffuse calcification of the aortic valve. Mild aortic valve stenosis. Aortic valve area is 0.89 cm. Aortic valve mean gradient is 19 mmHg. Mild aortic valve regurgitation. Mild thickening of the tricuspid valve leaflets. There is moderate tricuspid regurgitation. The estimated pulmonary arterial pressure is 44.3 mmHg. Assessment and Plan - Plan Ms. Faria is a pleasant 88-year-old female admitted for shortness of breath and hypoxemia, x-ray demonstrates pulmonary edema. Cardiology followed patient. Blood culture grew GPC. Patient received IV lasix and later PO lasix per cardiology. Patient also underwent echocardiogram study on 05/15/2018. Acute pulmonary edema Possible congestive heart failure - echo report pending. Mild to moderate Aortic stenosis Hypertension -Currently on Lasix PO 20 mg Qday. -Continue Lisinopril 10mg Qday. Patient is also on long acting Diltiazem. Constipation - Resolved. - Would recommend Miralax daily upon discharge. - Due to effect of laxatives, she is having some diarrhea. Once diarrhea improves, she should be able to go back to [facility]. Acute respiratory infection Probable COPD Exacerbation - Bronchitis versus pneumonia - CXR shows no consolidation, leukocytosis was worse. - Continue Levaquin 750mg Qday. GPC bacteremia - likely due to contamination. - Possible contamination. will D/C Vancomycin - Appreciate ID input. Currently Levaquin. Will provide Levaquin for total of 7 days. - Blood cx from 05/15/2018 so far negative. Echo negative for any vegetation. Hypothyroidism - Continue levothyroxine 88 mcg daily. Full code. Heparin SQ.
--- NOTE | 2018-05-17 16:55 | P.PNID ---
Subjective Remarks: Patient is an 88-year-old female, lives in an [facility]IDENT[facility], brought into the hospital for further evaluation of shortness of breath. She also gives a history of congestion and cough and she is bringing up some yellow to green phlegm. She denies any fever or chills. She has not had any chest pain. She denies any nausea or vomiting. She has had problem with recurrent UTI, and has had some dysuria. Since admission she has not been febrile. Her white count was initially greater than 20,000, and it still 18,000. Chest x-ray on admission is showing pulmonary edema. Repeat chest x-ray showed improvement in interstitial edema. Blood cultures were done on admission, and one blood culture has coag negative staph, the other set of blood culture has pleomorphic gram-positive drew and gram-positive cocci. Her urine culture is growing lactobacillus, and her urinalysis only showed some mild pyuria. She has had cardiac workup and she has some valvular abnormality. Cardiology saw the patient and felt that she probably has some mild CHF on top of her COPD. Infectious disease consultation has been requested to assist with evaluation and treatment. Notes reviewed Temps ok Feels better D/W Dr Ulrich Breathing better' Cough same BC with Coag Neg Staph UC Lactobacillus Antibiotics: Levaquin Vanco D/C Lines: PIV no evid infection Past Medical History: (atherosclerosis) COPD (chronic obstructive pulmonary disease) Decubital ulcer Hypothyroid Osteoarthritis Allergies/Adverse Reactions: Allergies *MDRO Multi-Drug Resistant Organism Allergy (Unknown, Uncoded 11/02/17 17:24) MRSA Objective Vital Signs 05/16/18 19:50 05/16/18 23:07 05/17/18 04:00 Temperature 97.8 F 97.6 F Pulse Rate 83 80 74 Respiratory Rate 16 16 Blood Pressure 144/77 H 170/85 H Pulse Oximetry 90 L 94 L 05/17/18 08:00 05/17/18 09:00 05/17/18 12:00 Temperature 97.8 F 98.7 F Pulse Rate 71 73 67 Respiratory Rate 16 16 Blood Pressure 163/78 H 116/58 L Pulse Oximetry 96 94 L 05/17/18 13:41 05/17/18 16:00 Temperature 98.7 F Pulse Rate 66 Respiratory Rate 16 Blood Pressure 95/52 L Pulse Oximetry 93 L 95 Intake & Output 05/16/18 05/17/18 05/17/18 18:59 06:59 18:59 Intake Total 762.5 / 762.5 240 / 240 Balance 762.5 / 762.5 240 / 240 Intake: IV 262.5 / 262.5 Vancomycin Inj 1,250 MG In NS 262.5 / 262.5 Inj 250 ML @ 250 mls/hr IV.SIG Q24H JOVITA Rx#:[id number] Oral 500 / 500 240 / 240 Other: # Urine Diapers 1 Date of Last Bowel Movement 05/16/18 05/17/18 # Bowel Movements 3 05/13/18 11:58 Blood - Peripheral Aerobic Blood Culture - Final pleomorphic gram positive rods 05/13/18 11:58 Blood - Peripheral Anaerobic Blood Culture - Final Staphylococcus epidermidis pleomorphic gram positive rods 05/17/18 10:00 Urine - Random Urine Streptococcus pneumoniae Antigen (M - Final Presumptive negative for streptococcus pneumoniae antigen, suggesting no current or recent infection. Infection due to Streptococcus pneumoniae cannot be ruled out since the antigen present in the sample may be below the detection limit of the test. 05/17/18 10:00 Urine - Random Urine Legionella Antigen - Final Presumptive negative for Legionella pneumophila serogroup 1 antigen in urine, suggesting no recent or recurrent infection. Infection due to Legionella cannot be ruled out since other serogroups and species may cause disease, antigen may not be present in urine in early infection, and the level of antigen present in the urine may be below the detection limit of the test. 05/15/18 19:30 Blood - Peripheral Aerobic Blood Culture - Preliminary No growth in 2 days 05/15/18 19:30 Blood - Peripheral Anaerobic Blood Culture - Preliminary No growth in 2 days 05/15/18 19:00 Blood - Peripheral Aerobic Blood Culture - Preliminary No growth in 2 days 05/15/18 19:00 Blood - Peripheral Anaerobic Blood Culture - Preliminary No growth in 2 days 05/13/18 11:50 Blood - Peripheral Aerobic Blood Culture - Final Staphylococcus haemolyticus 05/13/18 11:50 Blood - Peripheral Anaerobic Blood Culture - Preliminary No growth in 4 days 05/13/18 15:10 Catheterized Urine Urine Culture - Final Lactobacillus species Lab - Hematology Results 05/16/18 08:15 WBC 11.5 H RBC 3.71 L Hgb 11.5 L Hct 35.3 MCV 95.1 MCH 30.9 MCHC 32.5 RDW 14.9 Plt Count 303 MPV 8.3 Prelim Diff (Auto) Slide review pending Neut % (Auto) 50.8 Lymph % (Auto) 20.9 [place] % (Auto) 11.5 H Eos % (Auto) 16.4 H Baso % (Auto) 0.4 Neut # (Auto) 5.9 Lymph # (Auto) 2.4 [place] # (Auto) 1.3 H Eos # (Auto) 1.9 H Baso # (Auto) 0.0 WBC Differential Manual diff final Seg Neuts % (Manual) 52 Band Neuts % (Manual) 3 Lymphocytes % (Manual) 20 Monocytes % (Manual) 5 Eosinophils % (Manual) 17 H Basophils % (Manual) 2 Metamyelocytes % (Man) 1 Abs Neuts (Manual) 6.4 Differential Comment . Platelet Estimate Normal Platelet Morphology Normal RBC Morphology Normal Imaging: ITS Impressions Abdomen/Bladder Ultrasound 05/15/18 00:00 CONCLUSION: 1. Small and echogenic kidneys typical of chronic parenchymal disease. 2. No obstructive uropathy or other acute abnormality demonstrated. Chest X-Ray 05/15/18 00:00 CONCLUSION: Interval improvement with less interstitial edema. Abdomen X-Ray 05/16/18 00:00 CONCLUSION: Unremarkable bowel gas pattern. Physical Exam: GENERAL: Patient is a well-nourished, well-developed female, awake and alert , not in respiratory distress. SKIN: Cool and dry. No generalized rash, no ecchymoses and no evidence of embolic lesions. HEAD: Atraumatic. Normocephalic. No temporal wasting, or tenderness. EYES: [place] conjunctiva. No petechia or hemorrhage. Pupils equal, round and reactive to light. Extraocular movements full and intact. No scleral icterus. No injection or drainage. EARS, NOSE AND THROAT: Nose without bleeding or purulent nasal discharge. No sinus tenderness. Mucous membranes pink and moist. No oral lesions noted. No exudate. No oral thrush. NECK: Trachea midline. Supple and not tender, no meningeal signs CARDIOVASCULAR: Regular rate and rhythm. Soft murmur at RPSB. RESPIRATORY: Rales at the bases, no E to A changes ABDOMEN: Soft, non-tender, nondistended. Bowel sounds present and normoactive. No guarding. No rebound. No organomegaly. EXTREMITIES: No clubbing, cyanosis, or edema.No joint effusion, has good ROM. No calf tenderness. Well perfused and warm. NEUROLOGICAL: Awake and alert. Cranial nerves grossly intact. Motor grossly within normal limits. PSYCHIATRIC: Normal affect, calm and cooperative. LINE: No evidence of infection Assessment and Plan - Plan Impression (+) BC - ?real vs contaminant - has Coag Neg Staph in one and the other with GPR and GPC SOB - CHF likely, CXr improved fairly quickly so has component of fluid - COPD +/- PNA UTI - has symptoms and has mild pyuria on her UA Recommendation Follow C/S Continue Levaquin Agree with D/C vanco - D/W Dr Ulrich Monitor progress If continues to do well give 7-10 days of Levaquin
[2018-05-18] MEDS: Levothyroxine 88 MCG Tablet PO SCH (05:39)
[2018-05-18] MEDS: Lisinopril 10 MG Tablet PO SCH ×2 (05:39→09:45)
[2018-05-18] MEDS: Heparin - SQ 10,000 UNITS/ML Vial SQ SCH ×2 (05:39→18:22)
[2018-05-18] MEDS: Furosemide 20 MG Tablet PO SCH (09:44)
[2018-05-18] MEDS: dilTIAZem CD 120 MG Capsule PO SCH (09:44)
[2018-05-18 12:09] VITALS: TEMP 98
[2018-05-18] MEDS: levoFLOXacin 750 MG Tablet PO SCH (13:43)
[2018-05-18 15:32] VITALS: BP 135/69; PULSE 72; O2SAT 95
--- NOTE | 2018-05-18 16:06 | P.DCO ---
- Physical Therapy Order: Evaluate and treat, Improve ambulation, Strength and gait training - Home Health Nursing Order: Medical education, Signs/symptoms of disease process, Medication education-adverse effect, Wound care and dressing changes, Nursing assessment with vital signs - Case Management Consult No - Certification I have seen patient Neisha Faria on 05/18/18. My clinical findings support the need for the requested home health care services because: Limited mobility due to disease progression, Patient has SOB, Deconditioned with increased weakness, Limited ability to care for self, Need for psychosocial assistance, High risk of falls, Infection with risk of complications I certify that my clinical findings support that this patient is homebound because: Impaired cognitive ability/safety, Unsteady gait/balance, Unsafe to leave home unassisted, Need for psychosocial assistance, Non-ambulatory: confined to bed or chair, Unable to use public transportation
--- NOTE | 2018-05-18 16:09 | P.DS ---
Date of admission: 05/15/18 13:02 Primary care physician: UNKNOWN Attending physician on discharge: Gaby Ulrich Anticipated date of discharge: 05/18/18 Brief History from admission: 88-year-old female with a history of hypo-thyroidism, osteoarthritis, presents to the ER complaining of shortness of breath. On arrival she was hypoxic with saturations into the mid 80s off of oxygen. ER workup revealed pulmonary edema and elevated white blood cell count. Family relate a history that for the past 2-3 weeks she has been battling urinary tract infection that initially showed E. coli, repeat sample showed MRSA. She was treated with ciprofloxacin in the past but most recently was placed on Macrobid. Starting yesterday she became increasingly short of breath and states that she has had a cough that is productive of green to yellow phlegm. She denies any fevers. 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 They state that her mind is still sharp and she is very active with her local community. She denies any diarrhea, nausea, vomiting. She denies any chest pain, irregular rhythm, syncopal episodes. DS: Medications - Discharge Medications Prescriptions: furosemide 20 mg PO DAILY #30 tab levofloxacin 750 mg PO DAILY@1100 #10 tab DS: Summary Hospital Course: Ms. Faria is a pleasant 88-year-old female admitted for shortness of breath and hypoxemia, x-ray demonstrates pulmonary edema. Cardiology followed patient. Blood culture grew GPC. Patient received IV lasix and later PO lasix per cardiology. Patient also underwent echocardiogram study on 05/15/2018. Acute pulmonary edema Possible congestive heart failure - echo report pending. Mild to moderate Aortic stenosis Hypertension -Currently on Lasix PO 20 mg Qday. -Continue Lisinopril 10mg Qday. Patient is also on long acting Diltiazem. -Cardiology follow up within 2-3 weeks. Constipation - Resolved. - Would recommend Miralax daily upon discharge. Acute respiratory infection Probable COPD Exacerbation - Bronchitis versus pneumonia - CXR shows no consolidation, leukocytosis was worse. - Continue Levaquin 750mg Qday. Per ID recommendations, we will continue Levaquin for 7-10 days. GPC bacteremia - likely due to contamination. - Possible contamination. D/C Vancomycin - Appreciate ID input. Currently Levaquin. - Blood cx from 05/15/2018 so far negative. Echo negative for any vegetation. Hypothyroidism - Continue levothyroxine 88 mcg daily. Full code. Heparin SQ. Patient has been evaluated by PT. Per PT, patient is doing better than her baseline. I have discussed with patient's daughter. Patient is being discharged back to her [facility] today. - Time Spent with Patient Total time spent providing and/or coordinating discharge services: Greater than 30 minutes - Quality: VTE Deep Vein Thrombosis/Pulmonary Embolism Present on Admission: No Exam Vital signs: Vital Signs 05/17/18 20:00 05/18/18 04:00 05/18/18 07:39 Temperature 98.2 F 98.4 F Pulse Rate 68 78 62 Respiratory Rate 16 16 Blood Pressure 103/56 L 177/83 H Pulse Oximetry 93 L 93 L 05/18/18 08:11 05/18/18 12:08 05/18/18 15:32 Temperature 97.9 F 98.0 F 98.0 F Pulse Rate 68 67 72 Respiratory Rate 16 16 16 Blood Pressure 180/81 H 134/63 135/69 Pulse Oximetry 92 L 94 L 95 Intake & Output 05/17/18 05/18/18 05/18/18 18:59 06:59 18:59 Output Total 320 / 320 Balance -320 / -320 Weight 83 kg Output: Urine 320 / 320 Other: # Incontinent Voids 3 Date of Last Bowel Movement 05/17/18 05/18/18 # Bowel Movements 8 Narrative: GENERAL: Alert, NAD. SKIN: Warm and dry. HEAD: Normocephalic. EYES: No scleral icterus. No injection or drainage. NECK: Supple, trachea midline. No JVD or lymphadenopathy. CARDIOVASCULAR: Regular rate and rhythm without murmurs, gallops, or rubs. RESPIRATORY: Breath sounds equal bilaterally. No accessory muscle use. GASTROINTESTINAL: Abdomen soft, Tender to palpation, nondistended. MUSCULOSKELETAL: No cyanosis, or edema. BACK: Nontender without obvious deformity. No CVA tenderness. Results Procedures completed during hospitalization: Echo 05/15/2018 The left ventricular systolic function is normal with an estimated ejection fraction in the range of 55-60%. Normal left ventricular size. Wall thickness is normal. No regional wall motion abnormalities are present. Mild thickening of the mitral valve leaflets. Moderate mitral annular calcification. Mild mitral valve stenosis. Mitral valve mean gradient is 5 mmHg. The mitral valve area by Pressure Halftime Method is 81 cm. Diffuse calcification of the aortic valve. Mild aortic valve stenosis. Aortic valve area is 0.89 cm. Aortic valve mean gradient is 19 mmHg. Mild aortic valve regurgitation. Mild thickening of the tricuspid valve leaflets. There is moderate tricuspid regurgitation. The estimated pulmonary arterial pressure is 44.3 mmHg. Labs on day of discharge: Preliminary micro results at discharge 05/15/18 19:30 Aerobic Blood Culture - Preliminary Blood - Peripheral No growth in 3 days Anaerobic Blood Culture - Preliminary No growth in 3 days 05/15/18 19:00 Aerobic Blood Culture - Preliminary Blood - Peripheral No growth in 3 days Anaerobic Blood Culture - Preliminary No growth in 3 days 05/13/18 11:50 Anaerobic Blood Culture - Preliminary Blood - Peripheral gram positive cocci - Impressions ITS Impressions Abdomen/Bladder Ultrasound 05/15/18 00:00 CONCLUSION: 1. Small and echogenic kidneys typical of chronic parenchymal disease. 2. No obstructive uropathy or other acute abnormality demonstrated. Chest X-Ray 05/15/18 00:00 CONCLUSION: Interval improvement with less interstitial edema. Abdomen X-Ray 05/16/18 00:00 CONCLUSION: Unremarkable bowel gas pattern. Discharge Plan - Discharge Disposition Patient Disposition: [facility] - Discharge Condition Condition: Stable - Discharge Order Discharge Orders: Discharge Order (Routine); Ordered 05/18/18 Ordered By: Gaby Ulrich - Discharge Details Anticipated Discharge Date: 05/18/18 - Physicians Team Primary Care Provider: UNKNOWN, Attending Provider: Gaby Ulrich Other Providers: Rajeev Sánchez MD ; Celeste Vasquez MD ; Blanca Rios
== END 2018-05-18 19:20 ==
LOC: NEDA 11:01 → NEPE 11:01 → NEPGCP 16:00
PROVIDERS: ADMIT Internal Medicine; ATTEND Internal Medicine

== ENCOUNTER 2018-07-15 13:30 | Inpatient (IN) ==
[2018-07-15] MEDS ORDERED: Sod Chloride 0.9% Inj 1,000 ML IV.CONT SCH (14:15)
--- NOTE | 2018-07-15 14:31 | CT ---
EXAM DATE: 07/15/2018 2:24 PM EST AGE/SEX: 88 years / Female INDICATIONS: Stroke alert, left arm weakness today. CLINICAL DATA: This is the patient's initial encounter. Patient reports that signs and symptoms have been present for 1 day and indicates a pain score of Nonresponsive. MEDICAL/SURGICAL HISTORY: Non-responsive. Non-responsive. RADIATION DOSE: 56.35 CTDI (mGy) COMPARISON: [facility], CT HEAD W/O CONTRAST, 04/14/2018. [facility], CT BRAIN W/O CONTRAST, 01/11/2018. . TECHNIQUE: CT of the head without contrast. Using automated exposure control and adjustment of the mA and/or kV according to patient size, radiation dose was kept as low as reasonably achievable to ob tain optimal diagnostic quality images. DICOM format image data is available electronically for revi ew and comparison. FINDINGS: Cerebrum: Cerebral atrophy is noted. Severe diffuse periventricular and subcortical white matter sma ll vessel ischemic changes are noted. No acute infarct, acute hemorrhage, midline shift or extra-axia l fluid collections are noted. Posterior Fossa: Cerebellar atrophy is noted. The 4th ventricle is midline. The cerebellopontine an gle is unremarkable. Extracranial: The visualized portion of the orbits is intact. Skull: The calvaria is intact. No evidence of skull fracture. CONCLUSION: 1. No acute infarct, acute hemorrhage, midline shift or extra-axial fluid collections. 2. Severe diffuse periventricular and subcortical white matter small vessel ischemic changes. 3. Cerebral and cerebellar atrophy. Report was called by Dr. Grimes to Dr. Salcedo at 2:30 PM on 07/15/2018. Electronically signed by: Nawaf Grimes MD 07/15/2018 2:30 PM EST
[2018-07-15 14:40] LABS: Baso # (Auto) 0.1 th/mm3 (0.0-0.2); Baso % (Auto) 0.9 % (0.0-2.0); Eos # (Auto) 0.7 th/mm3 (0.0-0.4); Eos % (Auto) 8.9 % (0.0-4.0); Hematocrit 38.6 % (35.0-46.0); Hemoglobin 12.6 gm/dL (11.6-15.3); Lymph # (Auto) 2.5 th/mm3 (1.0-4.8); Lymph % (Auto) 30.4 % (9.0-44.0); Mean Corpuscular HGB Conc 32.7 % (32.0-36.0); Mean Corpuscular Hemoglobin 31.8 pg (27.0-34.0); Mean Corpuscular Volume 97.2 fL (80.0-100.0); Mean Platelet Volume 8.3 fL (7.0-11.0); Mono % (Auto) 12.1 % (0.0-8.0); Neut # (Auto) 3.9 th/mm3 (1.8-7.7); Neut % (Auto) 47.7 % (16.0-70.0); Platelet Count 328 th/mm3 (150-450); Red Blood Count 3.98 mil/mm3 (4.00-5.30); Red Cell Distribution Width 14.7 % (11.6-17.2); White Blood Count 8.1 th/mm3 (4.0-11.0)
[2018-07-15 14:50] LABS: Activated Partial Thrombo Time 28.7 sec (23.4-31.7); Prothrombin Time 10.4 sec (9.8-11.6)
--- NOTE | 2018-07-15 14:51 | ED ---
HPI General Chief Complaint: Neuro Symptoms/Deficit Stated Complaint: Cardiac Time Seen by Provider: 07/15/18 14:06 Source: patient Mode of arrival: EMS Limitations: no limitations History of Present Illness Onset (ago): hour(s) (2) Time: 12:00 Location: Reports left arm History of same: Yes (But it is worse than usual) Severity: moderate Quality: Reports weak Relieving factors: none Exacerbating factors: none Context: Reports sudden onset On Anticoagulants: No Associated symptoms: Reports denies other symptoms Treatments Prior to Arrival: Reports none Related Data Home Medications Medication Instructions Recorded Confirmed acetaminophen [Tylenol Arthritis 650 mg PO Q4HR PRN 04/14/18 07/15/18 Pain] albuterol sulfate [Ventolin HFA] 1 puff INHALATION Q4-6H PRN 04/14/18 07/15/18 bacillus coagulans-inulin 1 cap PO DAILY 04/14/18 07/15/18 [Probiotic Formula (inulin)] diltiazem HCl 120 mg PO DAILY 04/14/18 07/15/18 escitalopram oxalate [Lexapro] 20 mg PO DAILY 04/14/18 07/15/18 lisinopril 10 mg PO DAILY 04/14/18 07/15/18 pravastatin 20 mg PO HS 04/14/18 07/15/18 ropinirole [Requip] 0.25 mg PO QPM 04/14/18 07/15/18 tiotropium-olodaterol [Stiolto 1 puff INHALATION DAILY 04/14/18 07/15/18 Respimat] levothyroxine [Synthroid] 100 mcg PO DAILY 07/15/18 07/15/18 meclizine 25 mg PO TID 07/15/18 07/15/18 potassium chloride 10 meq PO DAILY 07/15/18 07/15/18 Previous Rx's Medication Instructions Recorded furosemide 20 mg PO DAILY #30 tab 05/18/18 Allergies Allergy/AdvReac Type Severity Reaction Status Date / Time No Known Allergies Allergy Verified 07/15/18 14:02 Review of Systems ROS: all other systems reviewed are negative [facility] Medical History Medical History Breast CA (Acute) (atherosclerosis) (Acute) COPD (chronic obstructive pulmonary disease) (Acute) Decubital ulcer (Acute) Hypothyroid (Acute) Osteoarthritis (Acute) Surgical History Surgical History Hx of breast surgery (Acute) Social History Social History Substance History: No History of Abuse Second Hand Smoke Exposure: No Smoking Status: Former smoker Tobacco Type: Cigarettes How Often Do You Have a Drink Containing Alcohol: Never Recent Travel in [facility] within the Last 8 Weeks: No Recent Out of Country Travel within the Last 8 Weeks: No Exam Const General: cooperative, healthy appearing and comfortable Orientation: alert, awake and oriented x3 HENMT Head: normal to inspection, normocephalic and atraumatic Eyes Alignment and Position: alignment normal Conjunctivae: conjunctivae normal Sclera: sclerae normal EOM: EOM intact bilaterally Neck Neck: normal visual inspection, no lymphadenopathy and no meningeal signs Chest Chest: normal inspection of the chest Resp Effort & Inspection: normal respiratory effort and able to speak in complete sentences Auscultation: clear to auscultation bilaterally Cardio Rate: regular rate Rhythm: regular rhythm Back/Spine/Pelvis Cervical Spine: cervical ROM normal Thoracic/Lumbar Spine: thoraco-lumbar ROM normal Skin General: no rashes or lesions noted, turgor normal and dry skin Neuro General: alert, awake, oriented x3 and CN's II-XI intact bilaterally Cognition: normal cognition Speech: speech normal Motor: pronator drift pronator drift of left upper extremity and strength abnormal (LUE) Sensory Exam: no sensory deficits noted Extrem General: normal to inspection and full ROM Psych Appearance: grossly normal Mental Status: mental status grossly normal Speech and Movement: speech and movement normal Mood: congruent mood Affect: normal affect Attitude: cooperative Thought Process: normal Thought Content: normal Judgment: judgment good Course Reevaluation(s) Reevaluation #1: No change in her weakness Time: 15:29 Consultations Consultation #1: Dr. Cardoza was called immediately after I evaluated this patient. She recommended the usual stroke workup. Following the results of the patient's head CT, I contacted Dr. Cardoza again regarding a recommendation for TPA. She does not recommend TPA in this elderly patient with very minimal signs and symptoms. Time: 14:55 Consultation #2: Dr. Aguilar will admit Time: 15:29 Initial Documented Vital Signs Temperature 97.8 F 07/15/18 13:59 Pulse Rate 59 L 07/15/18 13:59 Respiratory Rate 18 07/15/18 13:59 Blood Pressure 162/70 H 07/15/18 13:59 Pulse Oximetry 97 07/15/18 13:59 Last Documented Vital Signs Temperature 97.7 F 07/15/18 15:00 Pulse Rate 64 07/15/18 15:00 Respiratory Rate 18 07/15/18 15:00 Blood Pressure 158/75 H 07/15/18 15:00 Pulse Oximetry 98 07/15/18 15:00 Critical Care Time Critical Care Time: Yes Total Critical Care Time: 35 Attestation: Time to perform other separately billable procedures was not included in the critical care time. My time did not include minutes spent treating any other patients simultaneously or on activities that did not directly contribute to the patient's treatment. The services I provided to this patient were to treat and/or prevent clinically significant deterioration due to possible stroke I provided critical care services requiring my management, as noted below: Chart data review, documentation time, medication orders and management, vital sign assessments/reviewing monitor data, ordering and reviewing lab tests, ordering and interpreting/reviewing x-rays and diagnostic studies, care of the patient and discussion of the patient with the admitting physicians NIH Stroke Scale NIHSS Time Completed NIHSS Time Completed: 14:00 NIH Stroke Scale Level of Consciousness: 0-Alert Orientation Questions: 0-Answers both correct Responds to Commands: 0-Both tasks correct Gaze Eye Movement: 0-Horizontal movement WNL Visual Flannery: 0-No visual field defect Facial Movement: 0-Normal Motor Functions Arm LEFT: 1-Drift before 10 seconds Motor Functions Arm RIGHT: 0-No drift Motor Functions Leg LEFT: 0-No drift Motor Functions Leg RIGHT: 0-No drift Limb Ataxia: 0-No ataxia Sensory Loss: 0-No sensory loss Best Language: 0-Normal Articulation: 0-Normal Extinction or Inattention Sensory: 0-Absent Total: 1 Quality Measure Queries Stroke Last date observed well: 07/15/18 Last time observed well: 12:00 Symptom Onset Unknown: Yes Medical Decision Making MDM Narrative Medical decision making narrative: This patient presents with acute left upper extremity weakness. Onset was 2 hours prior to presentation, approximately noon. Her only neurological complaint and finding is left upper extremity weakness. Stroke alert was called. Medical Screen Exam Complete: Yes Emergency Medical Condition: Yes Lab Data Lab results reviewed: Yes I reviewed the patient's lab results. Result diagrams: 07/15/18 14:15 Lab Results 07/15/18 07/15/1807/15/18 Range/Units 14:00 14:15 14:15 WBC 8.1 (4.0-11.0) th/mm3 RBC 3.98 L (4.00-5.30) mil/mm3 Hgb 12.6 (11.6-15.3) gm/dL Hct 38.6 (35.0-46.0) % MCV 97.2 (80.0-100.0) fL MCH 31.8 (27.0-34.0) pg MCHC 32.7 (32.0-36.0) % RDW 14.7 (11.6-17.2) % Plt Count 328 (150-450) th/mm3 MPV 8.3 (7.0-11.0) fL Neut % (Auto) 47.7 (16.0-70.0) % Lymph % (Auto) 30.4 (9.0-44.0) % Hardeman % (Auto) 12.1 H (0.0-8.0) % Eos % (Auto) 8.9 H (0.0-4.0) % Baso % (Auto) 0.9 (0.0-2.0) % Neut # (Auto) 3.9 (1.8-7.7) th/mm3 Lymph # (Auto) 2.5 (1.0-4.8) th/mm3 Hardeman # (Auto) 1.0 H (0.0-0.9) th/mm3 Eos # (Auto) 0.7 H (0.0-0.4) th/mm3 Baso # (Auto) 0.1 (0.0-0.2) th/mm3 WBC Differential . Differential Comment Auto diff final PT 10.4 (9.8-11.6) sec INR 1.0 Ratio APTT 28.7 (23.4-31.7) sec Fibrinogen 410 H (227-377) mg/dL POC Glucose 93 (68-110) mg/dl Total Creatine Kinase (26-192) U/L Troponin I (0.02-0.05) ng/mL Beta HCG, Quant (0-5) mIU/mL 07/15/18 Range/Units 14:15 WBC (4.0-11.0) th/mm3 RBC (4.00-5.30) mil/mm3 Hgb (11.6-15.3) gm/dL Hct (35.0-46.0) % MCV (80.0-100.0) fL MCH (27.0-34.0) pg MCHC (32.0-36.0) % RDW (11.6-17.2) % Plt Count (150-450) th/mm3 MPV (7.0-11.0) fL Neut % (Auto) (16.0-70.0) % Lymph % (Auto) (9.0-44.0) % Hardeman % (Auto) (0.0-8.0) % Eos % (Auto) (0.0-4.0) % Baso % (Auto) (0.0-2.0) % Neut # (Auto) (1.8-7.7) th/mm3 Lymph # (Auto) (1.0-4.8) th/mm3 Hardeman # (Auto) (0.0-0.9) th/mm3 Eos # (Auto) (0.0-0.4) th/mm3 Baso # (Auto) (0.0-0.2) th/mm3 WBC Differential Differential Comment PT (9.8-11.6) sec INR Ratio APTT (23.4-31.7) sec Fibrinogen (227-377) mg/dL POC Glucose (68-110) mg/dl Total Creatine Kinase 24 L (26-192) U/L Troponin I Less than 0.02 L (0.02-0.05) ng/mL Beta HCG, Quant 6 H (0-5) mIU/mL Imaging Data Radiologist's impression: Head CT 07/15/18 14:10 CONCLUSION: 1. No acute infarct, acute hemorrhage, midline shift or extra-axial fluid collections. 2. Severe diffuse periventricular and subcortical white matter small vessel ischemic changes. 3. Cerebral and cerebellar atrophy. Report was called by Dr. Grimes to Dr. Salcedo at 2:30 PM on 07/15/2018. Head CTA 07/15/18 14:10 CONCLUSION: 1. Diffuse chronic narrowing of the distal portions of the posterior cerebral arteries bilaterally. 2. No significant stenosis or occlusion of the anterior cerebral circulation. 3. Marked narrowing of the right A1 segment. 4. Patent posterior communicating arteries bilaterally. Report was called by Dr. Grimes to Dr. Cardoza at 3:00 PM on 07/15/2018. Neck CTA 07/15/18 14:10 CONCLUSION: 1. Proximal internal carotid artery lumen is mildly narrowed. Streak artifact from the adjacent cervical spine hardware results in slight rotation of the images within the right proximal internal carotid artery. If there is strong clinical concern for right proximal internal carotid artery stenosis ultrasound may be helpful for further evaluation of this vessel. ECG Data EKG Prior to Arrival: Yes Attestation: I personally reviewed and interpreted this ECG as follows: Discharge Plan Discharge Disposition Patient Disposition: 30 Still Patient Discharge Details Diagnosis: Left arm weakness Physicians Team ED Provider: Leonie Salcedo Primary Care Provider: UNKNOWN, Attending Provider: Thierry Aguilar Other Providers: Carrie Cardoza Status ED Status: Admitted Observation Patient
--- NOTE | 2018-07-15 14:59 | CT ---
EXAM DATE: 07/15/2018 2:49 PM EST AGE/SEX: 88 years / Female INDICATIONS: Stroke alert, left arm weakness today. CLINICAL DATA: This is the patient's initial encounter. Patient reports that signs and symptoms have been present for 1 day and indicates a pain score of Nonresponsive. MEDICAL/SURGICAL HISTORY: Non-responsive. Non-responsive. RADIATION DOSE: 5.1 CTDI (mGy) ; Combined studies COMPARISON: [facility] [place], [place] HEAD W/O CONTRAST, 07/15/2018. [facility] [place], [place] HEAD W/O CONTRAST, 04/14/2018. . TECHNIQUE: Volumetric scanning was performed using a multi-row detector CT scanner during bolus infu deepa of 85 ml Visipaque 320 (iodixanol) nonionic water-soluble contrast as a cumulative dose for mul tiple exams. The data was post processed with a variety of visualization algorithms including full volume maximum intensity projection, multi-planar sliding thin slab reformation, curved planar reform ation, and surface rendering techniques. Using automated exposure control and adjustment of the mA a nd/or kV according to patient size, radiation dose was kept as low as reasonably achievable to obtain optimal diagnostic quality images. DICOM format image data is available electronically for review a nd comparison. FINDINGS: Diffuse chronic narrowing of the distal portions of the posterior cerebral arteries are noted bilater ally. Patent bilateral posterior communicating arteries are noted. The right A1 segment is markedly d ecreased in caliber. Bilateral anterior cerebral arteries fill from a patent anterior communicating a rtery and large A1 segment on the left. CONCLUSION: 1. Diffuse chronic narrowing of the distal portions of the posterior cerebral arteries bilaterally. 2. No significant stenosis or occlusion of the anterior cerebral circulation. 3. Marked narrowing of the right A1 segment. 4. Patent posterior communicating arteries bilaterally. Report was called by Dr. Grimes to Dr. Cardoza at 3:00 PM on 07/15/2018. Electronically signed by: Nawaf Grimes MD 07/15/2018 2:58 PM EST
[2018-07-15 15:02] LABS: Beta HCG,Quantitative 6 mIU/mL (0-5)
[2018-07-15 15:11] LABS: Creatine Kinase 24 U/L (26-192)
--- NOTE | 2018-07-15 15:15 | CT ---
EXAM DATE: 07/15/2018 3:02 PM EST AGE/SEX: 88 years / Female INDICATIONS: Stroke alert, left arm weakness today. CLINICAL DATA: This is the patient's initial encounter. Patient reports that signs and symptoms have been present for 1 day and indicates a pain score of Nonresponsive. MEDICAL/SURGICAL HISTORY: Non-responsive. Non-responsive. RADIATION DOSE: 5.1 CTDI (mGy) ; Combined studies COMPARISON: [facility], CT CERVICAL SPINE W/O CONTRAST, 01/11/2018. [facility], MRA NECK W CONTRAST, 04/14/2018 . . TECHNIQUE: Volumetric scanning was performed using a multirow detector CT scanner during bolus infus ion of 85 ml Visipaque 320 (iodixanol) nonionic water-soluble contrast as a cumulative dose for mult iple exams. The data was postprocessed with a variety of visualization algorithms including full-vo lume maximum intensity projection, multiplanar sliding thin-slab reformation, curved-planar reformati on, and surface-rendering techniques. Using automated exposure control and adjustment of the mA and/ or kV according to patient size, radiation dose was kept as low as reasonably achievable to obtain op timal diagnostic quality images. DICOM format image data is available electronically for review and comparison. FINDINGS: Aortic Arch: There is a three-vessel origin of the great vessels from the aorta. No evidence of ost ial narrowing Right Carotid: The common carotid artery is intact. The carotid bulb has a normal configuration wit hout ulceration or narrowing. The proximal internal carotid artery lumen is mildly narrowed. Streak a rtifact from the adjacent cervical spine hardware results in slight rotation of the images within the right proximal internal carotid artery. If there is strong clinical concern for right proximal inter nal carotid artery stenosis ultrasound may be helpful for further evaluation of this vessel. The exte rnal carotid artery is intact. Left Carotid: The common carotid artery is intact. The carotid bulb has a normal configuration with out ulceration or narrowing. The internal carotid artery lumen is smooth without stenosis. The exte rnal carotid artery is intact. Vertebrals: The vertebral arteries have a symmetric diameter. No stenotic lesions are seen. Percent stenosis is calculated using the diameter of the stenotic region over the diameter of the nor mal distal internal carotid artery. CONCLUSION: 1. Proximal internal carotid artery lumen is mildly narrowed. Streak artifact from the adjacent cerv ical spine hardware results in slight rotation of the images within the right proximal internal carot id artery. If there is strong clinical concern for right proximal internal carotid artery stenosis ul trasound may be helpful for further evaluation of this vessel. Electronically signed by: Nawaf Grimes MD 07/15/2018 3:13 PM EST
--- NOTE | 2018-07-15 15:32 | XR ---
EXAM DATE: 07/15/2018 3:29 PM EST AGE/SEX: 88 years / Female INDICATIONS: Stroke Alert. CLINICAL DATA: This is the patient's initial encounter. Patient reports that signs and symptoms have been present for 1 day and indicates a pain score of 0/10. MEDICAL/SURGICAL HISTORY: . Hypertension. Chronic obstructive pulmonary disease. Gastroesophage al reflux disease. thyroid disease, breast ca . Tonsillectomy. Mastectomy, left. partial colectomy, c- spine surgery COMPARISON: [facility], CHEST 1V SINGLE AP, 05/15/2018. . FINDINGS: A single AP view of the chest demonstrates the lungs to be symmetrically aerated without evidence of mass, infiltrate or effusion. The cardiomediastinal contours are unremarkable. Degenerative changes and scoliosis of the thoracic spine are noted. CONCLUSION: No acute cardiopulmonary disease. Electronically signed by: Nawaf Grimes MD 07/15/2018 3:31 PM EST
[2018-07-15] MEDS ORDERED: Aspirin 300 MG Supp RECTAL ONE (15:54)
--- NOTE | 2018-07-15 16:12 | P.HPIM ---
History of Present Illness Primary Care Physician: UNKNOWN History of Present Illness: This patient is an 88 y/o F with a diagnosis of HTN, dyslipidemia, hypothyroidism. As per the pt she had a stroke many yrs ago and has left sided motor weakness at baseline. The patient says she thinks she was previously on anticoagulation however I am unable to confirm that. She began to have left sided motor weakness and numbness that started today around 12pm. She was then brought into the ED for evaluation. She denies any chest pain, palpitations, fevers, or chills. She did not experience any dysphagia as far as she remembers. Stroke alert was called however as per the ED physician Neurology did not think the patient was a tpa candidate. 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 family history significant for heart disease Review of Systems All other systems reviewed negative except as stated in HPI [facility] - History History Provided By: Patient - Medical History Medical History: Medical History (Last Updated 07/15/18 @ 14:51 by Radha Hidalgo) Breast CA (atherosclerosis) COPD (chronic obstructive pulmonary disease) Decubital ulcer Hypothyroid Osteoarthritis - Surgical History Surgical History: Surgical History (Last Updated 07/15/18 @ 14:51 by Radha Hidalgo) Hx of breast surgery - Family History Family History: Family History (Last Reviewed 05/18/18 @ 11:52 by Nicolette Bryan) Other Hypertension - Tobacco History Second Hand Smoke Exposure: No Tobacco Use In Past 30 Days: No Smoking Status: Former smoker Tobacco Type: Cigarettes - Alcohol History How Often Do You Have a Drink Containing Alcohol: Never - Substance Use History Substance History: No History of Abuse - Travel History [facility] Within the Last 8 Weeks: No Recent Travel Out of the Country Within the Last 8 Weeks: No - Immunization History Tetanus Immunization: >5 Years Medications and Allergies Active Medications: Active Medications Aspirin (Aspirin Supp) 300 mg RECTAL ONCE ONE Stop: 07/15/18 15:55 Aspirin (Aspirin Supp) 300 mg RECTAL DAILY [facility] Enoxaparin Sodium (Lovenox Inj) 40 mg SQ DAILY JOVITA Sodium Chloride (Ns Inj) 1,000 mls @ 70 mls/hr IV.CONT .[id number] JOVITA Last Admin: 07/15/18 14:48 Dose: 70 mls/hr Allergies Allergy/AdvReac Type Severity Reaction Status Date / Time No Known Allergies Allergy Verified 07/15/18 14:02 Home Medications Medication Instructions Recorded Confirmed Type acetaminophen [Tylenol Arthritis 650 mg PO Q4HR PRN 04/14/18 07/15/18 History Pain] albuterol sulfate [Ventolin HFA] 1 puff INHALATION Q4-6H PRN 04/14/18 07/15/18 History bacillus coagulans-inulin 1 cap PO DAILY 04/14/18 07/15/18 History [Probiotic Formula (inulin)] diltiazem HCl 120 mg PO DAILY 04/14/18 07/15/18 History escitalopram oxalate [Lexapro] 20 mg PO DAILY 04/14/18 07/15/18 History lisinopril 10 mg PO DAILY 04/14/18 07/15/18 History pravastatin 20 mg PO HS 04/14/18 07/15/18 History ropinirole [Requip] 0.25 mg PO QPM 04/14/18 07/15/18 History tiotropium-olodaterol [Stiolto 1 puff INHALATION DAILY 04/14/18 07/15/18 History Respimat] levothyroxine [Synthroid] 100 mcg PO DAILY 07/15/18 07/15/18 History meclizine 25 mg PO TID 07/15/18 07/15/18 History potassium chloride 10 meq PO DAILY 07/15/18 07/15/18 History Exam Vital signs: Vital Signs 07/15/18 13:59 07/15/18 14:00 07/15/18 14:10 Temperature 97.8 F Pulse Rate 59 L 68 Respiratory Rate 18 Blood Pressure 162/70 H Pulse Oximetry 97 99 98 07/15/18 15:00 Temperature 97.7 F Pulse Rate 64 Respiratory Rate 18 Blood Pressure 158/75 H Pulse Oximetry 98 Intake & Output 07/14/18 07/15/18 07/15/18 18:59 06:59 18:59 Weight 82.554 kg Narrative: a and o x 3 EOMI, atraumatic, normocephalic S1 S2 RRR CTA B/L 2 + distal pulses patient has left upper and lower ext weakness 3/5 strength, decreased sensation of the left upper and lower exts. Right side no deficits. Smile appears symmetric, cerebellar signs intact. speech is normal. No other neurological deficits. Results - Labs CBC & Chem 7: 07/15/18 14:15 Labs: Short CBC 07/15/18 Range/Units 14:15 WBC 8.1 (4.0-11.0) th/mm3 Hgb 12.6 (11.6-15.3) gm/dL Hct 38.6 (35.0-46.0) % Plt Count 328 (150-450) th/mm3 Cardiac Enzymes 07/15/18 Range/Units 14:15 Total Creatine Kinase 24 L (26-192) U/L Troponin I Less than 0.02 L (0.02-0.05) ng/mL - Imaging Impressions Chest X-Ray 07/15/18 14:10 CONCLUSION: No acute cardiopulmonary disease. Head CT 07/15/18 14:10 CONCLUSION: 1. No acute infarct, acute hemorrhage, midline shift or extra-axial fluid collections. 2. Severe diffuse periventricular and subcortical white matter small vessel ischemic changes. 3. Cerebral and cerebellar atrophy. Report was called by Dr. Grimes to Dr. Salcedo at 2:30 PM on 07/15/2018. Head CTA 07/15/18 14:10 CONCLUSION: 1. Diffuse chronic narrowing of the distal portions of the posterior cerebral arteries bilaterally. 2. No significant stenosis or occlusion of the anterior cerebral circulation. 3. Marked narrowing of the right A1 segment. 4. Patent posterior communicating arteries bilaterally. Report was called by Dr. Grimes to Dr. Cardoza at 3:00 PM on 07/15/2018. Neck CTA 07/15/18 14:10 CONCLUSION: 1. Proximal internal carotid artery lumen is mildly narrowed. Streak artifact from the adjacent cervical spine hardware results in slight rotation of the images within the right proximal internal carotid artery. If there is strong clinical concern for right proximal internal carotid artery stenosis ultrasound may be helpful for further evaluation of this vessel. Caprini VTE Risk Assessment Caprini VTE Risk Assessment: Moderate/High Risk (score >= 2) Caprini Risk Assessment Model: Point Value = 1 Point Value = 2 Point Value = 3 Point Value = 5 Age 41-60 Minor surgery BMI > 25 kg/m2 Swollen legs Varicose veins or History of unexplained or recurrent spontaneous Oral contraceptives or hormone replacement Sepsis (< 1 month) Serious lung disease, including pneumonia (< 1 month) Abnormal pulmonary function Acute myocardial infarction Congestive heart failure (< 1 month) History of inflammatory bowel disease Medical patient at bed rest Age 61-74 Arthroscopic surgery Major open surgery (> 45 min) Laparoscopic surgery (> 45 min) Malignancy Confined to bed (> 72 hours) Immobilizing plaster cast Central venous access Age >= 75 History of VTE Family history of VTE Factor V Leiden Prothrombin [id number] Lupus anticoagulant Anticardiolipin antibodies Elevated serum homocysteine Heparin-induced thrombocytopenia Other congenital or acquired thrombophilia Stroke (< 1 month) Elective arthroplasty Hip, pelvis, or leg fracture Acute spinal cord injury (< 1 month) Prophylaxis Regimen: Total Risk Factor Score Risk Level Prophylaxis Regimen 0-1 Low Early ambulation 2 Moderate Order ONE of the following: *Sequential Compression Device (SCD) *Heparin 5000 units SQ BID 3-4 Higher Order ONE of the following medications: *Heparin 5000 units SQ TID *Enoxaparin/Lovenox 40 mg SQ daily (WT < 150 kg, CrCl > 30 mL/min) *Enoxaparin/Lovenox 30 mg SQ daily (WT < 150 kg, CrCl > 10-29 mL/min) *Enoxaparin/Lovenox 30 mg SQ BID (WT < 150 kg, CrCl > 30 mL/min) AND/OR *Sequential Compression Device (SCD) 5 or more Highest Order ONE of the following medications: *Heparin 5000 units SQ TID (Preferred with Epidurals) *Enoxaparin/Lovenox 40 mg SQ daily (WT < 150 kg, CrCl > 30 mL/min) *Enoxaparin/Lovenox 30 mg SQ daily (WT < 150 kg, CrCl > 10-29 mL/min) *Enoxaparin/Lovenox 30 mg SQ BID (WT < 150 kg, CrCl > 30 mL/min) AND *Sequential Compression Device (SCD) Assessment and Plan - Plan This patient is an 88 y/o F with a diagnosis of HTN, dyslipidemia, hypothyroidism. As per the pt she had a stroke many yrs ago and has left sided motor weakness at baseline. The patient says she thinks she was previously on anticoagulation however I am unable to confirm that. She began to have left sided motor weakness and numbness that started today around 12pm. She was then brought into the ED for evaluation. She denies any chest pain, palpitations, fevers, or chills. She did not experience any dysphagia as far as she remembers. Stroke alert was called however as per the ED physician Neurology did not think the patient was a tpa candidate. 1. Acute Ischemic CVA with left upper and lower extremity motor weakness and numbness EKG nsr, HR [address] or t wave changes, trops neg Patient was not a candidate for TPA as per ER physician. I am waiting for neurology note which will be followed up. Patients ct head did not show any significant acute abnormalities. cta head and neck was done which shows Right sided stenosis, u/s ordered of carotids as per radiology read. Vascular surgery consulted as the findings may be contributing to her symptoms. There is also stenosis to the post circulation. Will follow up with neurology. Aspirin per rectal ordered. bedside swallow eval pending official swallow eval pending. allow for permissive htn for 24 hrs. PT ordered. echo from 1 month ago shows ef 55% Continue ivf. 2. HTN/DLD allow for permissive htn for 24 hrs statin will be started after pt passes swallow eval. 3. hypothyroidism start meds after pt passes swallow eval. Lovenox for dvt prophylaxis.
[2018-07-15] MEDS: Sod Chloride 0.9% Inj 1,000 ML IV.CONT SCH (18:13)
[2018-07-15] MEDS ORDERED: Tiotropium Bromide 18 MCG/ACT Inhaler INH ONE (18:52)
[2018-07-15] MEDS: Enoxaparin Inj 40 MG/0.4 ML Syringe SQ SCH (23:36)
[2018-07-16] MEDS: Sod Chloride 0.9% Inj 1,000 ML IV.CONT SCH ×3 (06:05→23:45)
[2018-07-16] MEDS: Levothyroxine 100 MCG Tablet PO SCH (06:06)
[2018-07-16 07:24] LABS: Baso % (Auto) 0.7 % (0.0-2.0); Eos # (Auto) 0.8 th/mm3 (0.0-0.4); Hematocrit 36.3 % (35.0-46.0); Hemoglobin 12.1 gm/dL (11.6-15.3); Lymph # (Auto) 1.8 th/mm3 (1.0-4.8); Lymph % (Auto) 26.4 % (9.0-44.0); Mean Corpuscular HGB Conc 33.4 % (32.0-36.0); Mean Corpuscular Hemoglobin 32.2 pg (27.0-34.0); Mean Corpuscular Volume 96.3 fL (80.0-100.0); Mean Platelet Volume 8.4 fL (7.0-11.0); Mono # (Auto) 0.9 th/mm3 (0.0-0.9); Mono % (Auto) 13.2 % (0.0-8.0); Neut # (Auto) 3.3 th/mm3 (1.8-7.7); Neut % (Auto) 48.7 % (16.0-70.0); Platelet Count 293 th/mm3 (150-450); Red Blood Count 3.77 mil/mm3 (4.00-5.30); Red Cell Distribution Width 14.7 % (11.6-17.2); White Blood Count 6.8 th/mm3 (4.0-11.0)
[2018-07-16 07:48] LABS: Anion Gap 6 meq/L (5-15); Blood Urea Nitrogen 11 mg/dL (7-18); Calcium 8.4 mg/dL (8.5-10.1); Carbon Dioxide 28.8 meq/L (21.0-32.0); Chloride 105 meq/L (98-107); Glomerular Filtration Rate Greater Than 89 mL/min (>89); Glucose,Random 79 mg/dL (74-106); Potassium 3.5 meq/L (3.5-5.1); Sodium 140 meq/L (136-145)
[2018-07-16] MEDS ORDERED: RESP: Albuterol Concentrated 2.5 MG/0.5 ML Neb NEB PRN (08:16)
--- NOTE | 2018-07-16 08:18 | P.PNIM ---
Subjective Interval history: Pt seen and examined. Daughter at the bedside. Pt's only complaint is left UE weakness which she states overall is completely new. She denies any residual deficits from prior CVA and states that she had difficulty raising her LUE secondary to prior mastectomy and a frozen shoulder but her strength had always been preserved. She denies paresthesias, blurry vision, slurred speech, chest pain, or shortness of breath. She feels hungry and is swallowing apple sauce without any problems. Her daughter reports not too long ago she had been taken off of Plavix secondary to frequent falls. Physical Exam Vital signs: Vital Signs 07/15/18 13:59 07/15/18 14:00 07/15/18 14:10 Temperature 97.8 F Pulse Rate 59 L 68 Respiratory Rate 18 Blood Pressure 162/70 H Pulse Oximetry 97 99 98 07/15/18 15:00 07/15/18 15:18 07/15/18 22:59 Temperature 97.7 F 97.7 F Pulse Rate 64 65 Respiratory Rate 18 17 Blood Pressure 158/75 H 158/75 H Pulse Oximetry 98 98 96 07/16/18 00:00 07/16/18 03:47 07/16/18 04:00 Temperature 97.7 F 98.2 F Pulse Rate 66 77 Respiratory Rate 16 16 Blood Pressure 169/77 H 141/69 H Pulse Oximetry 93 L 92 L 92 L Intake & Output 07/15/18 07/16/18 07/16/18 18:59 06:59 18:59 Intake Total 200 / 200 1000 / 1000 Balance 200 / 200 1000 / 1000 Weight 182 kg Intake: IV 200 / 200 1000 / 1000 NS Inj 1,000 ML @ 84 mls/hr IV. 200 / 200 1000 / 1000 CONT .[id number] [facility] Rx#:[id number] Other: # Voids 1 # Incontinent Voids 2 Weight On Admission 182 kg Narrative: GENERAL: WN, WD elderly female resting in bed in NAD. SKIN: Warm and dry. HEENT: AT/NC. PERRLA. EOMI. MMM. HEART: RRR W/ 6 CANDICE. LUNGS: CTAB without wheezes or crackles. ABDOMEN: +BS, soft, NT, ND. EXTREMITIES: No LE edema. Diminished pedal pulses. NEURO: Awake, alert, and oriented. CN II-XII intact. LUE held in flexion close to her body. 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 She cannot hold her LUE up. RUE strength 5/5. LLE strength 4/5, RLE 5/5. Questionable Babinski sign on the left but foot is somewhat deformed with her left toes hyperextended. PSYCH: Appropriate mood and affect. Results - Labs CBC & Chem 7: 07/16/18 05:56 07/16/18 05:56 Laboratory Results - last 24 hr 07/15/18 07/15/18 07/15/18 14:00 14:15 14:15 WBC 8.1 RBC 3.98 L Hgb 12.6 Hct 38.6 MCV 97.2 MCH 31.8 MCHC 32.7 RDW 14.7 Plt Count 328 MPV 8.3 Neut % (Auto) 47.7 Lymph % (Auto) 30.4 Harding % (Auto) 12.1 H Eos % (Auto) 8.9 H Baso % (Auto) 0.9 Neut # (Auto) 3.9 Lymph # (Auto) 2.5 Harding # (Auto) 1.0 H Eos # (Auto) 0.7 H Baso # (Auto) 0.1 WBC Differential . Differential Comment Auto diff final PT 10.4 INR 1.0 APTT 28.7 Fibrinogen 410 H Sodium Potassium Chloride Carbon Dioxide Anion Gap BUN Creatinine Estimated GFR POC Glucose 93 Random Glucose Calcium Magnesium Total Creatine Kinase Troponin I Beta HCG, Quant Blood Type Blood Type Recheck Antibody Screen 07/15/18 07/15/18 07/16/18 14:15 15:00 05:56 WBC 6.8 RBC 3.77 L Hgb 12.1 Hct 36.3 MCV 96.3 MCH 32.2 MCHC 33.4 RDW 14.7 Plt Count 293 MPV 8.4 Neut % (Auto) 48.7 Lymph % (Auto) 26.4 Harding % (Auto) 13.2 H Eos % (Auto) 11.0 H Baso % (Auto) 0.7 Neut # (Auto) 3.3 Lymph # (Auto) 1.8 Harding # (Auto) 0.9 Eos # (Auto) 0.8 H Baso # (Auto) 0.0 WBC Differential . Differential Comment Auto diff final PT INR APTT Fibrinogen Sodium Potassium Chloride Carbon Dioxide Anion Gap BUN Creatinine Estimated GFR POC Glucose Random Glucose Calcium Magnesium Total Creatine Kinase 24 L Troponin I Less than 0.02 L Beta HCG, Quant 6 H Blood Type O Positive Blood Type Recheck Required Antibody Screen Negative 07/16/18 05:56 WBC RBC Hgb Hct MCV MCH MCHC RDW Plt Count MPV Neut % (Auto) Lymph % (Auto) Harding % (Auto) Eos % (Auto) Baso % (Auto) Neut # (Auto) Lymph # (Auto) Harding # (Auto) Eos # (Auto) Baso # (Auto) WBC Differential Differential Comment PT INR APTT Fibrinogen Sodium 140 Potassium 3.5 Chloride 105 Carbon Dioxide 28.8 Anion Gap 6 BUN 11 Creatinine 0.56 Estimated GFR Greater than 89 POC Glucose Random Glucose 79 Calcium 8.4 L Magnesium 2.0 Total Creatine Kinase Troponin I Beta HCG, Quant Blood Type Blood Type Recheck Antibody Screen - Imaging Impressions Chest X-Ray 07/15/18 14:10 CONCLUSION: No acute cardiopulmonary disease. Head CT 07/15/18 14:10 CONCLUSION: 1. No acute infarct, acute hemorrhage, midline shift or extra-axial fluid collections. 2. Severe diffuse periventricular and subcortical white matter small vessel ischemic changes. 3. Cerebral and cerebellar atrophy. Report was called by Dr. Grimes to Dr. Salcedo at 2:30 PM on 07/15/2018. Head CTA 07/15/18 14:10 CONCLUSION: 1. Diffuse chronic narrowing of the distal portions of the posterior cerebral arteries bilaterally. 2. No significant stenosis or occlusion of the anterior cerebral circulation. 3. Marked narrowing of the right A1 segment. 4. Patent posterior communicating arteries bilaterally. Report was called by Dr. Grimes to Dr. Cardoza at 3:00 PM on 07/15/2018. Neck CTA 07/15/18 14:10 CONCLUSION: 1. Proximal internal carotid artery lumen is mildly narrowed. Streak artifact from the adjacent cervical spine hardware results in slight rotation of the images within the right proximal internal carotid artery. If there is strong clinical concern for right proximal internal carotid artery stenosis ultrasound may be helpful for further evaluation of this vessel. Assessment and Plan - Assessment (1) CVA (cerebral vascular accident) Code(s): I63.9 - Cerebral infarction, unspecified Status: Acute - Plan 88 year old female with HTN, HLD, prior CVA, asthma, depression, and hypothyroidism admitted for left-sided weakness and numbness and a stroke alert was called. Neurologist securities consultant did not feel she was a candidate for TPA. 1. CVA (left posterior parietal lobe and mid-right parietal lobe) - Risk factors for CVA include prior CVA, DM, HLD - EKG with NSR, troponins negative - CT head with no acute infarct or hemorrhage, there is severe diffuse periventricular and subcortical white matter small vessel ischemic changes as well as cerebral and cerebellar atrophy - CTA head with diffuse chronic narrowing of the distal portions of the posterior cerebral arteries B/L and marked narrowing of the right A1 segment - CTA neck with proximal ICA lumen mildly narrowed but there is artifact on the right secondary to cervical hardware - MRI of the brain showing new small 5 mm area of acute infarct associated with micro hemorrhage in the left posterior parietal lobe as well as a new 1.3 cm area of nonhemorrhagic acute infarct involving the deep mid-right parietal lobe - Carotid U/S with no hemodynamically significant stenosis - Obtain 2D echo - Neurology consulted, appreciate expertise - Check A1c and lipid panel - Neuro checks - Permissive HTN - IV fluids - Continue baby ASA - Holter as an outpatient - PT/OT - recommending rehab 2. HTN - Allowed permissive HTN overnight but will now resume home meds - Clonidine PRN 3. HLD - Continue home statin 4. Hypothyroidism - Resume patient's home levothyroxine 5. Depression - Resume patient's home Lexapro 6. Asthma - Resume patient's home inhalers - Albuterol PRN DVT prophylaxis: hold chemical anticoagulation given small amount of hemorrhage seen on MRI Discharge Planning: Anticipate D/C tomorrow
[2018-07-16] MEDS ORDERED: Heparin - SQ 10,000 UNITS/ML Vial SQ SCH (09:00)
[2018-07-16] MEDS ORDERED: Aspirin 300 MG Supp RECTAL SCH (09:00)
[2018-07-16 09:08] LABS: Chol/HDL Ratio 2.15 Ratio; HDL Cholesterol 68.1 mg/dL (40.0-60.0)
--- NOTE | 2018-07-16 09:13 | US ---
EXAM DATE: 07/16/2018 9:07 AM EST AGE/SEX: 88 years / Female INDICATIONS: Cerebrovascular accident. CLINICAL DATA: This is the patient's initial encounter. Patient reports that signs and symptoms have been present for 1 day and indicates a pain score of 0/10. MEDICAL/SURGICAL HISTORY: Chronic obstructive pulmonary disease. Hypothyroidism. Atheroscleros is. Breast cancer. Decubital ulcer. Osteoarthritis. . Breast surgery. COMPARISON: No prior exams available for comparison. VELOCITY PARAMETERS: ICA/CCA Ratio: Right 1.6 , Left 1.6 ICA: Right 78.0 cm/sec, Left 81.4 cm/sec CCA: Right 49.7 cm/sec, Left 52.3 cm/sec ECA: Right 47.5 cm/sec, Left 42.7 cm/sec Vertebral: Right 34.2 cm/sec antegrade, Left Not visualized cm/sec absent FINDINGS: Right Carotid: Moderate arteriosclerotic plaque is visualized.The waveforms are within normal limits . Left Carotid: Moderate arteriosclerotic plaque is visualized. The waveforms are within normal limits . Other: None. CONCLUSION: 1. Moderate acidotic plaquing at both carotid bifurcations. 2. No focal high-grade or hemodynamically significant stenosis. Electronically signed by: Ubaldo Jackson MD 07/16/2018 9:12 AM EST
--- NOTE | 2018-07-16 09:42 | MR ---
EXAM DATE: 07/16/2018 9:34 AM EST AGE/SEX: 88 years / Female INDICATIONS: Left sided weakness. CVA. CLINICAL DATA: This is the patient's initial encounter. Patient reports that signs and symptoms have been present for 1 day and indicates a pain score of 0/10. MEDICAL/SURGICAL HISTORY: Hypertension. Carcinoma, breast. CVA. Fusion, cervical. Colon rese ction. Mastectomy. COMPARISON: [facility] [place], MR HEAD W/O CONTRAST, 04/14/2018. [facility] [place], CT HEAD W/O CONTRAST, 07/15/2018. . TECHNIQUE: Multiplanar, multisequence examination of the brain was performed without contrast. FINDINGS: Cerebrum: The ventricles are normal for age. Stable bilateral cortical atrophy. No evidence of midli ne shift, mass lesion. There is a small microhemorrhage noted in the left posterior parietal lobe.. No extraaxial fluid collections are seen. The pituitary gland and suprasellar cistern are normal in configuration. White Matter: There is moderate chronic white matter changes noted bilaterally. The chronic white ma tter changes appear to be stable compared to the prior exam. Posterior Fossa: The cerebellum and brainstem are intact. There are stable chronic changes of the mid brain. The 4th ventricle is midline. The cerebellopontine angle is unremarkable. The cerebellar ton sils are normal in position. Diffusion Imaging: There is a new focal area of restricted diffusion in the deep mid right parietal lobe consistent with a new small focal area of infarction. This measures approximately 1.3 cm. There is also a 5 mm area of restricted diffusion in the left posterior parietal lobe which appears to be a ssociated with a microhemorrhage on the GRE images. Extracranial: The visualized portions of the orbits and paranasal sinuses are unremarkable. CONCLUSION: 1. New small 5 mm area of acute infarction associated with a microhemorrhage in the left posterior p arietal lobe. 2. New 1.3 cm area of nonhemorrhagic acute infarction involving the deep mid right parietal lobe. 3. Stable bilateral cortical atrophy and chronic moderate white matter changes. Electronically signed by: Ubaldo Jackson MD 07/16/2018 9:41 AM EST
[2018-07-16] MEDS: Enoxaparin Inj 40 MG/0.4 ML Syringe SQ SCH (11:00)
--- NOTE | 2018-07-16 11:58 | MB ---
cc: Carrie Cardoza MD DATE: 07/16/2018 REASON FOR CONSULTATION: Stroke. HISTORY OF PRESENT ILLNESS: This is an 88-year-old woman who has hypertension, hyperlipidemia, hypothyroidism, breast cancer, left mastectomy with some lymphedema in left upper extremity and chronic weakness. Came in as a stroke alert with some left-sided weakness. She states she does have some left-sided weakness at baseline, just did not feel her hand and leg, very coordinated. She is wheelchair bound. She is not on anticoagulation any longer or antiplatelets because she was deemed a fall risk. Her family member confirms that. She had an NIH stroke scale per the ED physician of 1. She had undergone imaging per protocol and given her low score and advanced age, TPA was not considered to be of consideration due to high risk of hemorrhage. PAST MEDICAL HISTORY: Left-sided weakness from possibly an old stroke, hypertension, hyperlipidemia, hypothyroidism. FAMILY HISTORY: Heart disease. SOCIAL HISTORY: She lives in a assisted. Does not smoke or drink. She used to smoke in the past. ALLERGIES TO MEDICINES: None. MEDICATIONS: She was given aspirin here, but does not take any aspirin in her facility. PHYSICAL EXAMINATION: VITAL SIGNS: Temperature is 97.7, pulse 61, respiratory rate 18, blood pressure 194/88, saturating at 95%. NECK: Supple. I do not appreciate any bruits. HEART: Regular. NEUROLOGIC: He is awake and alert. She does have some increased tone in the left arm. She has some trouble with the teradata architect as well and a mild drift. At best she is 4/5. There is a mild leg lag on the left. She has some deformities of the feet. Cannot tell if she has any Babinski's or not. Sensory is normal. Reflexes are trace to 1+. Gait is withheld at this time due to the fact that she is wheelchair bound and cannot be assessed. LABORATORY DATA: Reviewed. Her white count 6.8, hemoglobin 12.9, platelets 293. Coag panel, fibrinogen 410. Chemistry: LDL was 60, cholesterol 147, HDL 68.1, triglycerides 93. HbA1c is pending. Imaging of the brain confirms a 5 mm acute infarct with what they described as microhemorrhage in the left posterior parietal lobe. Also, a new 1.3 cm nonhemorrhagic acute infarct deep in mid right parietal lobe and chronic white matter changes and atrophy. Her carotid ultrasound shows moderate plaquing in both bifurcations. Her CTA did show that she had some narrowing of the distal portions of the posterior cerebral arteries bilaterally, but no significant stenosis or occlusion. There is narrowing of the right A1 segment also. Neck CTA, as stated she, had some proximal internal carotid narrowing. Streak artifact was seen also. IMPRESSION: An 88-year-old woman with left-sided deficits with findings to indicate a right parietal 1.3 cm nonhemorrhagic infarct as well as a small 5 mm left posterior parietal infarct with some microhemorrhage. Given these findings, I would still recommend putting her on baby aspirin. I do not think she needs a statin given her low-density lipoprotein. She will need physical therapy and occupational therapy. If she has been on a statin before, we will continue it, but I do not think she needs increase. Start her on a diet if she is able to pass her swallow evaluation. I would put a Holter monitor on as an outpatient. If there is any atrial fibrillation at that point in time, she would need anticoagulation; however, her advanced age and fall risk is worrisome. Continue baby aspirin. Continue risk factor modification. Start normalizing her blood pressure. Physical therapy and occupational therapy assessment and possible rehabilitation. Discharge planning when stable. MD ROHITH Reyna/robert , 09:56 AM , 10:06 AM
[2018-07-16 12:00] LABS: Bacteria,Urine Many /hpf; Bilirubin,Urine Negative (Negative); Clarity,Urine Hazy (Clear); Color,Urine Yellow (Yellw/Straw); Glucose,Urine (UA) Negative (Negative); Leukocyte Esterase,Urine Large (Negative); Mucus,Urine Few /lpf (Occasional); Nitrite,Urine Positive (Negative); Specific Gravity,Urine 1.014 (1.002-1.035); Squamous Epithelial Cell,Urine <1 /hpf (0-5)
--- NOTE | 2018-07-16 12:51 | ECG ---
Date Performed: 07/15/2018 Time Performed: 13:58:43 PTAGE: 88 years EKG: SINUS BRADYCARDIA WITH FIRST DEGREE AV BLOCK MODERATE ST DEPRESSION PROLONGED QT INTERVAL A BNORMAL ECG INTERPRETATION BASED ON A DEFAULT AGE OF 40 YEARS Since the PREVIOUS TRACING , no significant change noted PREVIOUS TRACIN05/13/2018 11.13 DOCTOR: Kem Funk Interpretating Date/Time 07/16/2018 12:50:05
[2018-07-16] MEDS: dilTIAZem CD 120 MG Capsule PO SCH (14:22)
[2018-07-16] MEDS: Lisinopril 10 MG Tablet PO SCH (14:22)
[2018-07-16 14:38] LABS: Hemoglobin A1c 5.4 % (4.3-6.0)
[2018-07-17] MEDS: Levothyroxine 100 MCG Tablet PO SCH (05:45)
[2018-07-17] MEDS: Sod Chloride 0.9% Inj 1,000 ML IV.CONT SCH (06:36)
[2018-07-17] MEDS: dilTIAZem CD 120 MG Capsule PO SCH (09:55)
[2018-07-17] MEDS: Furosemide 20 MG Tablet PO SCH (09:55)
[2018-07-17] MEDS: Lisinopril 10 MG Tablet PO SCH (09:55)
--- NOTE | 2018-07-17 10:45 | P.PNNEU ---
Subjective Subjective Comments: chronic left arm weakness feels weak left leg. Active Medications: Active Medications Albuterol (Albuterol Concentrated Neb) 2.5 mg NEB Q2HR NEB PRN PRN Reason: SHORTNESS OF BREATH/WHEEZING Aspirin (Aspirin Chew) 81 mg PO DAILY [facility] Last Admin: 07/17/18 09:56 Dose: 81 mg Atorvastatin Calcium (Lipitor) 40 mg PO HS [facility] Last Admin: 07/16/18 22:23 Dose: 40 mg Clonidine HCl (Catapres) 0.1 mg PO Q6H PRN PRN Reason: SBP>160, DBP>90 Diltiazem HCl (Cardizem Cd 24hr) 120 mg PO DAILY [facility] Last Admin: 07/17/18 09:55 Dose: 120 mg Escitalopram Oxalate (Lexapro) 20 mg PO DAILY [facility] Last Admin: 07/17/18 09:54 Dose: 20 mg Furosemide (Lasix) 20 mg PO DAILY [facility] Last Admin: 07/17/18 09:55 Dose: 20 mg Sodium Chloride (Ns Inj) 1,000 mls @ 84 mls/hr IV.CONT .[id number] [facility] Last Infusion: 07/17/18 09:56 Dose: 84 mls/hr Levothyroxine Sodium (Synthroid) 100 mcg PO DAILY@0600 [facility] Last Admin: 07/17/18 05:45 Dose: 100 mcg Lisinopril (Prinivil) 10 mg PO DAILY [facility] Last Admin: 07/17/18 09:55 Dose: 10 mg Potassium Chloride (Klor-Con 10) 10 meq PO DAILY [facility] Last Admin: 07/17/18 09:55 Dose: 10 meq Allergies/Adverse Reactions: Allergies Allergy/AdvReac Type Severity Reaction Status Date / Time No Known Allergies Allergy Verified 07/15/18 14:02 Physical Exam Vital signs: Vital Signs 07/16/18 11:56 07/16/18 16:00 07/16/18 20:00 Temperature 98.0 F 97.7 F 97.8 F Pulse Rate 78 72 68 Respiratory Rate 16 16 15 Blood Pressure 148/71 H 180/85 H 152/75 H Pulse Oximetry 94 L 94 L 95 07/17/18 00:00 07/17/18 04:00 07/17/18 07:37 Temperature 97.9 F 97.9 F 97.8 F Pulse Rate 70 69 70 Respiratory Rate 16 16 16 Blood Pressure 149/73 H 142/71 H 177/81 H Pulse Oximetry 95 94 L 96 Intake & Output 07/16/18 07/17/18 07/17/18 18:59 06:59 18:59 Intake Total 400 / 400 600 / 600 700 / 700 Balance 400 / 400 600 / 600 700 / 700 Intake: IV 400 / 400 600 / 600 700 / 700 NS Inj 1,000 ML @ 84 mls/hr IV. 400 / 400 600 / 600 700 / 700 CONT .[id number] [facility] Rx#:[id number] Other: # Incontinent Voids 2 Date of Last Bowel Movement 07/16/18 07/16/18 # Bowel Movements 1 # Incontinent Bowel Movements 1 - Constitutional no acute distress - Routine HEENT Exam Head: Present: normocephalic, atraumatic Eye: Present: EOMI, PERRL - Routine Cardiovascular Exam Present: RRR - Routine Neurological Exam Present: alert, oriented X3, CN II-XII intact, motor deficit (left side), moving all extremities, normal speech Objective Radiology Results: mri c/w ac infarcts b/l cus mod plaque b/l bifurcations echo -pending cta cow narrow distal dot etcher apprentice and a1 Laboratory Results - last 24 hr 07/16/18 07/16/18 06:45 11:22 Hemoglobin A1c 5.4 Urine Color Yellow Urine Clarity Hazy H Urine pH 7.0 Ur Specific [place] 1.014 Urine Protein Negative Urine Glucose (UA) Negative Urine Ketones Negative Urine Occult Blood Negative Urine Nitrate Positive H Urine Bilirubin Negative Urine Urobilinogen Less than 2 Ur Leukocyte Esterase Large H Urine RBC 2 Urine WBC 80 H Ur Squamous Epith Cells <1 Urine Bacteria Many H Urine Mucus Few H Micro UA Comment Culture indicated Ur Microscopic Review Not Reportable Urine Culture Comments Culture indicated Review/Management - Diagnosis (1) CVA (cerebral vascular accident) Code(s): I63.9 - Cerebral infarction, unspecified Status: Acute Current Visit: Yes - Review/Management Plan: asa statin bp control pt-ot eval echo dc to snf when stable and cleared. outpt holter.
--- NOTE | 2018-07-17 11:23 | ECHRPT ---
Indication: CVA/TIA CONCLUSIONS Normal left ventricular size. Mild concentric left ventricular hypertrophy. The left ventricular systolic function is normal with an estimated ejection fraction in the range of 60-65%. No regional wall motion abnormalities are present. Mild mitral annular calcification. Mild calcification of both mitral valve leaflets. Mild mitral [place] ve regurgitation. Moderate thickening and mild calcification of the aortic valve leaflets. Aortic valve mean gradient is 24 mmHg suggesting mild to moderate aortic stenosis. Trace aortic valve regurgitation. There is trace tricuspid valve regurgitation. The estimated pulmonary arterial pressure is 45 mmHg. BP: / HR: Rhythm: Sinus MEASUREMENTS (Male / Female) Normal Values Technical Quality:Fair 2D ECHO LV Diastolic Diameter PLAX 3.9 cm 4.2 - 5.9 / 3.9 - 5.3 cm LV Systolic Diameter PLAX 2.7 cm IVS Diastolic Thickness 1.0 cm 0.6 - 1.0 / 0.6 - 0.9 cm LVPW Diastolic Thickness 1.0 cm 0.6 - 1.0 / 0.6 - 0.9 cm LV Relative Wall Thickness 0.5 RV Internal Dim ED PLAX 2.9 cm LVOT Diameter 1.9 cm Aortic Root Diameter 3.1 cm LA Systolic Diameter LX 2.8 cm 3.0 - 4.0 / 2.7 - 3.8 cm DOPPLER AV Peak Velocity 329.0 cm/s AV Peak Gradient 43.3 mmHg AV Mean Gradient 24.0 mmHg AV Velocity Time Integral 81.0 cm LVOT Peak Velocity 101.0 cm/s LVOT Peak Gradient 4.1 mmHg LVOT Velocity Time Integral 21.4 cm AV Area Cont Eq vti 0.7 cm AV Area Cont Eq pk 0.9 cm Mitral E Point Velocity 109.0 cm/s Mitral A Point Velocity 136.0 cm/s Mitral E to A Ratio 0.8 LV E' Lateral Velocity 4.8 cm/s Mitral E to LV E' Lateral Ratio 22.8 LV E' Septal Velocity 5.3 cm/s Mitral E to LV E' Septal Ratio 20.7 TR Peak Velocity 297.0 cm/s TR Peak Gradient 35.3 mmHg Right Atrial Pressure 10.0 mmHg Pulmonary Artery Systolic Pressu 45.3 mmHg Right Ventricular Systolic Press 45.3 mmHg PV Peak Velocity 62.4 cm/s PV Peak Gradient 1.6 mmHg FINDINGS LEFT VENTRICLE Normal left ventricular size. Mild concentric left ventricular hypertrophy. The left ventricular systolic function is normal with an estimated ejection fraction in the range of 60-65%. No regional wall motion abnormalities are present. RIGHT VENTRICLE Normal right ventricular size and systolic function. LEFT ATRIUM The left atrial size is normal. RIGHT ATRIUM The right atrial size is mildly dilated. ATRIAL SEPTUM No atrial level shunt is demonstrated by color flow Doppler interrogation. AORTA The aortic root and proximal ascending aorta are normal in size on limited imaging. MITRAL VALVE Mild mitral annular calcification. Mild calcification of both mitral valve leaflets. Mild mitral [place] ve regurgitation. AORTIC VALVE Moderate thickening and mild calcification of the aortic valve leaflets. Aortic valve mean gradient is 24 mmHg suggesting mild to moderate aortic stenosis. Trace aortic valve regurgitation. TRICUSPID VALVE There is trace tricuspid valve regurgitation. The estimated pulmonary arterial pressure is 45 mmHg. PULMONARY VALVE No pulmonary valve regurgitation or stenosis. VESSELS The inferior vena cava was not well visualized. PERICARDIUM No pericardial effusion. A prominent epicardial fat pad is present. Christiano Ohara MD (Electronically Signed) Final Date:17 July 2018 11:22
--- NOTE | 2018-07-17 11:30 | P.PNIM ---
Subjective Interval history: Pt seen and examined f/u CVA with LUE and LLE weakness. Denies complaints. No change in weakness. No CP or SOB. Tolerating PO without swallowing issues. No slurred speech or blurry vision. Physical Exam Vital signs: Vital Signs 07/16/18 11:56 07/16/18 16:00 07/16/18 20:00 Temperature 98.0 F 97.7 F 97.8 F Pulse Rate 78 72 68 Respiratory Rate 16 16 15 Blood Pressure 148/71 H 180/85 H 152/75 H Pulse Oximetry 94 L 94 L 95 07/17/18 00:00 07/17/18 04:00 07/17/18 07:37 Temperature 97.9 F 97.9 F 97.8 F Pulse Rate 70 69 70 Respiratory Rate 16 16 16 Blood Pressure 149/73 H 142/71 H 177/81 H Pulse Oximetry 95 94 L 96 Intake & Output 07/16/18 07/17/18 07/17/18 18:59 06:59 18:59 Intake Total 400 / 400 600 / 600 700 / 700 Balance 400 / 400 600 / 600 700 / 700 Intake: IV 400 / 400 600 / 600 700 / 700 NS Inj 1,000 ML @ 84 mls/hr IV. 400 / 400 600 / 600 700 / 700 CONT .[id number] [facility] Rx#:[id number] Other: # Incontinent Voids 2 Date of Last Bowel Movement 07/16/18 07/16/18 # Bowel Movements 1 # Incontinent Bowel Movements 1 Narrative: GENERAL: WN, WD elderly female resting in bed in [facility]. SKIN: Warm and dry. HEENT: AT/NC. PERRLA. EOMI. MMM. HEART: RRR W/ 1/6 CANDICE. LUNGS: CTAB without wheezes or crackles. ABDOMEN: +BS, soft, NT, ND. EXTREMITIES: No LE edema. Diminished pedal pulses. NEURO: Awake, alert, and oriented. CN II-XII intact. LUE held in flexion close to her body. L oven heater strength 3/5. RUE strength 5/5. LLE strength 4/5, RLE 5/5. PSYCH: Appropriate mood and affect. Results - Labs CBC & Chem 7: 07/16/18 05:56 07/16/18 05:56 Laboratory Results - last 24 hr 07/16/18 07/16/18 06:45 11:22 Hemoglobin A1c 5.4 Urine Color Yellow Urine Clarity Hazy H Urine pH 7.0 Ur Specific [place] 1.014 Urine Protein Negative Urine Glucose (UA) Negative Urine Ketones Negative Urine Occult Blood Negative Urine Nitrate Positive H Urine Bilirubin Negative Urine Urobilinogen Less than 2 Ur Leukocyte Esterase Large H Urine RBC 2 Urine WBC 80 H Ur Squamous Epith Cells <1 Urine Bacteria Many H Urine Mucus Few H Micro UA Comment Culture indicated Ur Microscopic Review Not Reportable Urine Culture Comments Culture indicated Assessment and Plan - Assessment (1) CVA (cerebral vascular accident) Code(s): I63.9 - Cerebral infarction, unspecified Status: Acute - Plan 88 year old female with HTN, HLD, prior CVA, asthma, depression, and hypothyroidism admitted for left-sided weakness and numbness and a stroke alert was called. Neurologist cable installation technician did not feel she was a candidate for TPA. 1. CVA (left posterior parietal lobe and mid-right parietal lobe) - Risk factors for CVA include prior CVA, DM, HLD - EKG with NSR, troponins negative - CT head with no acute infarct or hemorrhage, there is severe diffuse periventricular and subcortical white matter small vessel ischemic changes as well as cerebral and cerebellar atrophy - CTA head with diffuse chronic narrowing of the distal portions of the posterior cerebral arteries B/L and marked narrowing of the right A1 segment - CTA neck with proximal ICA lumen mildly narrowed but there is artifact on the right secondary to cervical hardware - MRI of the brain showing new small 5 mm area of acute infarct associated with micro hemorrhage in the left posterior parietal lobe as well as a new 1.3 cm area of nonhemorrhagic acute infarct involving the deep mid-right parietal lobe - Carotid U/S with no hemodynamically significant stenosis - 2D echo with mild concentric LVH, EF 60-65%, and mild to moderate aortic stenosis - Neurology consulted, appreciate expertise - A1c 5.4 - Lipid panel reviewed - Continue home statin - Continue baby ASA - BP control - Holter as an outpatient - PT/OT - recommending rehab, CIR to evaluate patient 2. HTN - BPs elevated - Increase home Lisinopril to 20 mg - Clonidine PRN 3. HLD - Continue home statin 4. Hypothyroidism - Resume patient's home levothyroxine 5. Depression - Resume patient's home Lexapro 6. Asthma - Resume patient's home inhalers - Albuterol PRN DVT prophylaxis: hold chemical anticoagulation given small amount of hemorrhage seen on MRI Discharge Planning: Clear for D/C once placement arranged, CM assisting
--- NOTE | 2018-07-17 20:28 | PQ ---
Physician Query Response Document PATIENT: Neisha Faria : 1930 ADMIT DATE: 07/16/2018 10:45 AM DISCH DATE: RESPONDING PROVIDER #: TFRITZE QUERY TEXT: CDS Clarification Morbid obesity in this patient with BMI 73.4 Other explanation of clinical findings. Unable to determine (no explanation for clinical findings). The patient's Clinical Indicators include: BMI 73.4 The medical record reflects the following clinical findings, treatment, and risk factors. Please clarify and document your clinical opinion in the progress notes and discharge summary includi ng the definitive and/or presumptive diagnosis (suspected or probable), related to the above clinical findings. Please include clinical findings supporting your diagnosis. Thank you, Amandaaubrey Luciano CDS: Amanda Paulinolowe Patient Unit: [facility] Contact Number: [phone] Room: [facility] [place] Query created by: Amanda Luciano on 07/17/2018 4:31 PM RESPONSE TEXT: That is a mistake in the record her BMI is not 73.4. Electronically signed by: Mag Rocha MD 07/17/2018 8:24 PM
[2018-07-18] MEDS: Levothyroxine 100 MCG Tablet PO SCH (05:44)
[2018-07-18] MEDS: Lisinopril 10 MG Tablet PO SCH (09:03)
[2018-07-18] MEDS: Furosemide 20 MG Tablet PO SCH (09:03)
[2018-07-18] MEDS: dilTIAZem CD 120 MG Capsule PO SCH (09:06)
--- NOTE | 2018-07-18 12:35 | P.DS ---
Date of admission: 07/16/18 10:45 Primary care physician: UNKNOWN Brief History from admission: This patient is an 88 y/o F with a diagnosis of HTN, dyslipidemia, hypothyroidism. As per the pt she had a stroke many yrs ago and has left sided motor weakness at baseline. The patient says she thinks she was previously on anticoagulation however I am unable to confirm that. She began to have left sided motor weakness and numbness that started today around 12pm. She was then brought into the ED for evaluation. She denies any chest pain, palpitations, fevers, or chills. She did not experience any dysphagia as far as she remembers. Stroke alert was called however as per the ED physician Neurology did not think the patient was a tpa candidate. 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 family history significant for heart disease DS: Medications - Discharge Medications Prescriptions: aspirin [Adult Low Dose Aspirin] 81 mg PO DAILY #30 tab cefdinir 600 mg PO DAILY #8 cap lisinopril 20 mg PO DAILY #30 tab DS: Summary Hospital Course: Patient was admitted, started on permissive hypertension protocol for strokelike symptoms. Neurology was consulted and followed the patient. Ultimately MRI did show findings of a new stroke: New small 5 mm area of acute infarction associated with a microhemorrhage in the left posterior parietal lobe , New 1.3 cm area of nonhemorrhagic acute infarction involving the deep mid right parietal lobe. Echocardiogram was unremarkable except for mild to moderate aortic stenosis. Carotid imaging demonstrated some plaquing but no significant stenosis. Patient was placed on a Holter monitor. Patient ultimately did have residual left-sided weakness in her arm and leg. Patient was found to have E. coli UTI and started on cephalosporin. Patient has been maximal benefit from hospitalization is clinically stable for discharge to acute inpatient rehab. - Time Spent with Patient Total time spent providing and/or coordinating discharge services: Less than 30 minutes - Quality: Stroke Last date observed well: 07/15/18 Last time observed well: 12:00 Symptom Onset Unknown: Yes - Quality: VTE Deep Vein Thrombosis/Pulmonary Embolism Present on Admission: No Exam Vital signs: Vital Signs 07/17/18 15:09 07/17/18 19:35 07/17/18 20:00 Temperature 98.0 F 98.1 F Pulse Rate 68 78 61 Respiratory Rate 16 20 Blood Pressure 168/77 H 136/73 Pulse Oximetry 96 94 L 07/18/18 00:00 07/18/18 04:00 07/18/18 08:00 Temperature 97.7 F 97.4 F L 97.7 F Pulse Rate 67 63 67 Respiratory Rate 18 18 16 Blood Pressure 189/96 H 142/73 H 152/80 H Pulse Oximetry 96 92 L 93 L 07/18/18 12:00 Temperature 98.0 F Pulse Rate 64 Respiratory Rate 16 Blood Pressure 130/72 Pulse Oximetry 96 Intake & Output 07/17/18 07/18/18 07/18/18 18:59 06:59 18:59 Intake Total 1000 / 1000 Output Total 400 / 400 100 / 100 Balance 600 / 600 -100 / -100 Intake: IV 1000 / 1000 NS Inj 1,000 ML @ 84 mls/hr IV. 1000 / 1000 CONT .[id number] [facility] Rx#:[id number] Output: Urine 400 / 400 100 / 100 Narrative: Awake and alert, oriented x3 Pupils equal round reactive bilaterally Intact conjugate gaze No facial droop, no slurred speech, tongue protrusion and midline upon prompting 5/5 proximal right upper extremity gross strength including fist navy diver, 3/5 proximal left upper extremity gross strength including fist navy diver 3/5 proximal left hip flexor strength as well as left foot dorsiflexion and plantar flexion 5/5 proximal right hip flexor strength as well as right foot dorsiflexion plantar flexion Heart sounds regular rate and rhythm, no murmurs Clear lungs bilaterally, unlabored breathing Results Procedures completed during hospitalization: none Labs on day of discharge: Labs from last 24 hours 07/16/18 11:22 Urine Color Yellow Urine Clarity Hazy H Urine pH 7.0 Ur Specific [place] 1.014 Urine Protein Negative Urine Glucose (UA) Negative Urine Ketones Negative Urine Occult Blood Negative Urine Nitrate Positive H Urine Bilirubin Negative Urine Urobilinogen Less than 2 Ur Leukocyte Esterase Large H Urine RBC 2 Urine WBC 80 H Ur Squamous Epith Cells <1 Urine Bacteria Many H Urine Mucus Few H Micro UA Comment Culture indicated Urine Culture Comments Culture indicated - Impressions ITS Impressions Chest X-Ray 07/15/18 14:10 CONCLUSION: No acute cardiopulmonary disease. Head CT 07/15/18 14:10 CONCLUSION: 1. No acute infarct, acute hemorrhage, midline shift or extra-axial fluid collections. 2. Severe diffuse periventricular and subcortical white matter small vessel ischemic changes. 3. Cerebral and cerebellar atrophy. Report was called by Dr. Grimes to Dr. Salcedo at 2:30 PM on 07/15/2018. Head CTA 07/15/18 14:10 CONCLUSION: 1. Diffuse chronic narrowing of the distal portions of the posterior cerebral arteries bilaterally. 2. No significant stenosis or occlusion of the anterior cerebral circulation. 3. Marked narrowing of the right A1 segment. 4. Patent posterior communicating arteries bilaterally. Report was called by Dr. Grimes to Dr. Cardoza at 3:00 PM on 07/15/2018. Neck CTA 07/15/18 14:10 CONCLUSION: 1. Proximal internal carotid artery lumen is mildly narrowed. Streak artifact from the adjacent cervical spine hardware results in slight rotation of the images within the right proximal internal carotid artery. If there is strong clinical concern for right proximal internal carotid artery stenosis ultrasound may be helpful for further evaluation of this vessel. Carotid Doppler Study 07/16/18 00:00 CONCLUSION: 1. Moderate acidotic plaquing at both carotid bifurcations. 2. No focal high-grade or hemodynamically significant stenosis. Head MRI 07/16/18 00:00 CONCLUSION: 1. New small 5 mm area of acute infarction associated with a microhemorrhage in the left posterior parietal lobe. 2. New 1.3 cm area of nonhemorrhagic acute infarction involving the deep mid right parietal lobe. 3. Stable bilateral cortical atrophy and chronic moderate white matter changes. Discharge Plan - Discharge Disposition Patient Disposition: 62 Rehab Inpatient - Discharge Condition Condition: Stable - Discharge Order Discharge Orders: Discharge Order (Routine); Ordered 07/18/18 Ordered By: Oleg Ellis - Discharge Details Anticipated Discharge Date: 07/17/18 - Physicians Team Primary Care Provider: UNKNOWN, Attending Provider: Oleg Ellis Other Providers: Carrie Cardoza MD ; Blanca Rios ; Lorna Duggan MD
[2018-07-19] MEDS: Levothyroxine 100 MCG Tablet PO SCH (06:45)
[2018-07-19] MEDS: dilTIAZem CD 120 MG Capsule PO SCH (08:19)
[2018-07-19] MEDS: Furosemide 20 MG Tablet PO SCH (08:19)
[2018-07-19] MEDS: Lisinopril 10 MG Tablet PO SCH (08:20)
--- NOTE | 2018-07-19 11:47 | P.PN ---
Subjective Interval history: Nursing denies any acute changes overnight. Daughter is at the bedside. Patient says that she feels fine. Working with therapy at this time at the bedside. Physical Exam Vital signs: Vital Signs 07/18/18 12:00 07/18/18 16:00 07/18/18 19:52 Temperature 98.0 F 98.6 F 97.9 F Pulse Rate 64 58 L 65 Respiratory Rate 16 16 20 Blood Pressure 130/72 149/82 H 124/61 Pulse Oximetry 96 95 95 07/18/18 20:00 07/18/18 23:51 07/19/18 04:00 Temperature 98.1 F 97.6 F Pulse Rate 75 64 65 Respiratory Rate 20 20 Blood Pressure 136/73 137/68 Pulse Oximetry 98 94 L 94 L 07/19/18 07:43 Temperature 97.6 F Pulse Rate 70 Respiratory Rate 16 Blood Pressure 163/84 H Pulse Oximetry 94 L Intake & Output 07/18/18 07/19/18 07/19/18 18:59 06:59 18:59 Other: # Voids 2 Narrative: Awake and alert, oriented x3 Pupils equal round reactive bilaterally No facial droop, no slurred speech, tongue protrusion and midline upon prompting 5/5 proximal right upper extremity gross strength including fist internet salesperson, 3/5 proximal left upper extremity gross strength including fist internet salesperson 3/5 proximal left hip flexor strength as well as left foot dorsiflexion and plantar flexion 5/5 proximal right hip flexor strength as well as right foot dorsiflexion plantar flexion Heart sounds regular rate and rhythm, no murmurs Clear lungs bilaterally, unlabored breathing Results - Labs CBC & Chem 7: 07/16/18 05:56 07/16/18 05:56 Microbiology 07/16/18 11:22 Clean Catch Urine Urine Culture - Final Escherichia coli Assessment and Plan - Assessment (1) CVA (cerebral vascular accident) Code(s): I63.9 - Cerebral infarction, unspecified Status: Acute - Plan 88 year old female with HTN, HLD, prior CVA, asthma, depression, and hypothyroidism admitted for left-sided weakness and numbness and a stroke alert was called. Neurologist nutritional services cook did not feel she was a candidate for TPA. 1. CVA (left posterior parietal lobe and mid-right parietal lobe) - Risk factors for CVA include prior CVA, DM, HLD - EKG with NSR, troponins negative - CT head with no acute infarct or hemorrhage, there is severe diffuse periventricular and subcortical white matter small vessel ischemic changes as well as cerebral and cerebellar atrophy - CTA head with diffuse chronic narrowing of the distal portions of the posterior cerebral arteries B/L and marked narrowing of the right A1 segment - CTA neck with proximal ICA lumen mildly narrowed but there is artifact on the right secondary to cervical hardware - MRI of the brain showing new small 5 mm area of acute infarct associated with micro hemorrhage in the left posterior parietal lobe as well as a new 1.3 cm area of nonhemorrhagic acute infarct involving the deep mid-right parietal lobe - Carotid U/S with no hemodynamically significant stenosis - 2D echo with mild concentric LVH, EF 60-65%, and mild to moderate aortic stenosis - Neurology consulted, appreciate expertise - Lipid panel reviewed -PT/OT Continue aspirin, statin -Found to have E. coli UTI, starting Keflex 2. HTN -Better controlled, continue lisinopril 3. HLD - Continue home statin 4. Hypothyroidism - levothyroxine 5. Depression - Lexapro 6. Asthma - Albuterol PRN Discharge Planning: Awaiting placement (1) CVA (cerebral vascular accident) Qualifiers: CVA mechanism: unspecified Qualified Code(s): I63.9 - Cerebral infarction, unspecified
--- NOTE | 2018-07-20 18:03 | HM ---
Date Performed: 07/18/2018 Time Performed: 11:39:00 HOOKUP DATE: 07/18/18 11:39:00 AM Tue ANALYSIS START TIME: 07/18/2018 11:44:00 AM ANALYSIS END TIME: 07/19/2018 11:00:30 AM PATIENT AGE: 88 PATIENT HEIGHT PATIENT WEIGHT DRUG LIST PATIENT DIAGNOSIS: acute ischemic CVA TEST NARRATIVE: The patient's average heart rate was 65 BPM. No episodes of tachycardia wer e noted. No episodes of bradycardia were noted. No pauses exceeding 2.0 seconds were noted. 56 ventricular ectopics, which represented < 1% of the total beat count, were noted. The highest brea tricular ectopic frequency occurred from 06:00 AM to 07:00 AM Wed. During this time 7 VE(s) occurred . Ventricular ectopics were observed as 42 isolated beat(s), as 5 couplet(s) and as 1 run(s). 35 8 supraventricular ectopics, which represented < 1% of the total beat count, were noted. The highest supraventricular ectopic frequency occurred from 12:00 PM to 01:00 PM Tue. During this time 45 SVE( s) occurred. No episodes of ST depression (defined as -1.0 mm or more) were noted in channel 1. No episodes of ST depression (defined as -1.0 mm or more) were noted in channel 2. No episodes of ST depression (defined as -1.0 mm or more) were noted in channel 3. no diary maintained TEST INTERPRETATION: Patient undergoes a holter monitor to see if there is any relationship of h er neurologic symptoms with an underlying rhythm disturbance. No diary is kept or provided. Only expa nded tracings are subject to interpretation. Patient is in Sinus rhythm throughout the monitoring session with occasional PACs and PVCs. Occasional ventricular couplets are noted but I do not see any ventricular tachycardia. The patient does have several episodes of nonsus tained SVT with the longest being 7 beats. All of these episodes have organized atrial activity and I don't see any atrial fibrillation/flutter. No bradycardias are noted. Conclusions Sinus rhythm with occasional PVCs and PVCs. No atrial fibrillation/flutter noted. No other significant tachy or noble a rrhythmias. No diary provided. Sig endy by : Amanda Siddiqi
== END 2018-07-19 15:58 ==
LOC: NEPE 13:30 → NEDA 13:30 → NEPGCP 16:35
PROVIDERS: ADMIT Hospitalist; ATTEND Hospitalist